=== PATIENT | male | born 1945 | race Caucasian/White ===

== ENCOUNTER → 2018-09-30 | Outpatient (CLI) | payer OTHER | END | disposition home or self-care (01) | LOC: SHCH 12:58 | PROVIDERS: ATTEND Internal Medicine Cardiovascular Disease | DX: I87.2 Venous insufficiency (chronic) (peripheral) (principal); I73.9 Peripheral vascular disease, unspecified; Z72.89 Other problems related to lifestyle | CPT/HCPCS: 93925; 93970 ==

== ENCOUNTER → 2018-12-04 | Outpatient (CLI) | payer OTHER | END | disposition home or self-care (01) | LOC: SHCH 08:22 | PROVIDERS: ATTEND Internal Medicine Cardiovascular Disease | DX: I73.9 Peripheral vascular disease, unspecified (principal) | CPT/HCPCS: 93978 ==

== ENCOUNTER 2018-12-15 07:06 | Day surgery (SDC) | payer OTHER ==
[2018-12-12 11:45] VITALS: BP 179/75
[2018-12-12 11:52] LABS: APPEARANCE,URINE Clear (CLEAR); BILIRUBIN,URINE Negative (NEGATIVE); COLOR,URINE Yellow (YELLOW); GLUCOSE, URINE (UA) Negative (NEGATIVE); KETONES,URINE Negative (NEGATIVE); LEUKOCYTE ESTERASE ,URINE Negative (NEGATIVE); NITRATE,URINE Negative (NEGATIVE); OCCULT BLOOD,URINE Negative (NEGATIVE); PROTEIN,URINE Trace (NEGATIVE); UROBILINOGEN,URINE 0.2 mg/dL (0.2-1.0)
[2018-12-12 11:57] LABS: BASOPHILS % (AUTO) 0.5 % (0.0-5.0); EOSINOPHILS % (AUTO) 0.9 % (0.0-8.0); HEMATOCRIT 41.2 % (42-54); LYMPHOCYTES % (AUTO) 20.8 % (21.0-51.0); MEAN CORPUSCULAR HEMOGLOBIN 31.7 pg (27.0-33.0); MEAN CORPUSCULAR HGB CONC 32.7 g/dL (32.0-36.0); MEAN CORPUSCULAR VOLUME 97.1 fL (79-99); MONOCYTES % (AUTO) 6.9 % (3.0-13.0); NEUTROPHILS % (AUTO) 70.9 % (40.0-77.0); NUCLEATED RED BLOOD CELLS 0.1 % (0.0-0.19); PLATELET COUNT (AUTO) 148 K/uL (130-400); RED BLOOD CELL COUNT(AUTO) 4.24 MIL/uL (4.50-6.20); RED CELL DISTRIBUTION WIDTH 14.1 % (11.0-15.5); WHITE BLOOD COUNT (AUTO) 6.7 K/uL (4.8-10.8)
[2018-12-12 12:04] LABS: CREATININE 0.9 mg/dL (0.5-1.5); POTASSIUM 4.2 mmol/L (3.5-5.1)
[2018-12-12 12:05] LABS: BACTERIA,URINE Rare /HPF (None Seen); RBC,URINE 0-1 /HPF (0-1); WBC,URINE None Seen /HPF (0-1)
[2018-12-12 12:06] LABS: INR 1.92 (0.85-1.15); PARTIAL THROMBOPLASTIN TIME 33.5 SEC (26.3-35.5); PROTHROMBIN TIME 19.9 SEC (9.6-11.6)
[2018-12-12 12:06] LABS: SQUAMOUS EPITHELIAL CELL,UR 0-2 /HPF (0-2)
--- NOTE | 2018-12-12 16:48 | NUR ---
ABNORMAL LABS REPORTED ABNORMAL LABS TO Candice CASTREJON. ORDERS TO REDRAW PT/INR .
[~2018-12-15] VITALS: Ht 180.3 cm; Wt 82.4 kg
[2018-12-15] VITALS (11 sets, daily range): BP systolic 110–165; BP diastolic 46–93
[~2018-12-15 07:06] MED LIST: AMLO5TAB9 PO; ATOR-2 PO; FURO40TA5 PO; IRON PO; LISI40TA4 PO; METF-444 PO; METO50TA18 PO
[2018-12-15 08:18] LABS: INR 1.17 (0.85-1.15); PROTHROMBIN TIME 12.2 SEC (9.6-11.6)
--- NOTE | 2018-12-15 08:45 | NUR ---
REPORTED PT/INR RE-DRAWN LABS THIS MORNING TO Candice MORTENSEN, NO NEW ORDERS RECEIVED, CONTINUE WITH PLANNED PROCEDURE.
[2018-12-15] MEDS ORDERED: SODIUM CHLORIDE 0.9% 1000ML 1,000 ML IV ONE (09:28)
[2018-12-15] MEDS ORDERED: LIDOCAINE HCL-MPF 2% 5ML VIAL ONE (09:49)
[2018-12-15] MEDS ORDERED: HEPARIN SODIUM 1000UNIT/ML 10ML VIAL ONE (09:49)
[2018-12-15] MEDS ORDERED: NITROGLYCERIN 5 MG/ML 10 ML VIAL IV ONE (09:50)
[2018-12-15] MEDS ORDERED: IODIXANOL 320 MG/ML 100 ML VIAL ONE (09:50)
[2018-12-15] MEDS ORDERED: FENTANYL CITRATE PF 50 MCG/1 ML 2ML VIAL ONE (10:23)
[2018-12-15] MEDS ORDERED: MIDAZOLAM HCL 1 MG/ML 2ML VIAL ONE (10:23)
[2018-12-15] MEDS ORDERED: SODIUM CHLORIDE 0.9% 1000ML 1,000 ML IV SCH (10:55)
[2018-12-15] MEDS ORDERED: GLUCAGON 1MG KIT 1 MG ML IM PRN (11:00)
[2018-12-15] MEDS ORDERED: METOPROLOL TARTRATE 1 MG/ML 5ML VIAL IV PRN (11:00)
[2018-12-15] MEDS ORDERED: NITROGLYCERIN 0.4 MG SL TAB SL PRN (11:00)
[2018-12-15] MEDS ORDERED: DEXTROSE 50%-WATER 50 ML DISP.SYRIN IV PRN (11:00)
[2018-12-15] MEDS ORDERED: SODIUM CHLORIDE 0.9% 500ML 500 ML IV SCH (11:01)
[2018-12-15] MEDS ORDERED: INSULIN HUMULIN R 100 UNIT/ML 3ML SQ SCH (11:30)
--- NOTE | 2018-12-15 15:15 | NUR ---
REPORT/RECEIVE REPORT RECEIVED FROM LEDY WEBB RN. PT RECEIVED SEMI SITTING IN BED. PT NOT IN ANY APPARENT DISTRESS. DENIES PAIN, PAIN TO CATH OR CHEST PAIN. CATH SITE TO LEFT GROIN SOFT, DRESSING DRY AND INTACT, NO OOZING NO HEMATOMA NOTED. PT OFF BEDREST. WILL CONTINUE TO MONITOR PT. CALL SULLIVAN WITHIN REACH. FRIEND TABATHA AT BEDSIDE
--- NOTE | 2018-12-15 17:05 | NUR ---
DISCHARGE PT DISCHARGED VIA WHEELCHAIR WITH FRIEND TABATHA. PT STABLE. NOT IN ANY APPARENT DISTRESS. NO COMPLAINTS MADE. CATH SITE TO LEFT GROIN SOFT, DRESSING REMAINS DRY AND INTACT. DISCHARGE INSTRUCTIONS GIVEN TO PT, ALSO DEMONSTRATED TO PT ON HOW TO MONITOR SITE FOR BLEEDING/HEMATOMA. ALSO INSTRUCTED PT TO RESUME COUMADIN TODAY AND TAKE WHEN HE GETS HOME. PT VERBALIZED UNDERSTANDING. PT STATES HER FRIEND VEDA SHEARER WILL BE WITH HIM AT HOME. PT VOIDED PRIOR TO DISCHARGE.
== END 2018-12-15 17:05 | disposition home or self-care (01) ==
LOC: DAH 07:06
PROVIDERS: ATTEND Internal Medicine Cardiovascular Disease
DX: I71.4 Abdominal aortic aneurysm, without rupture (principal); I70.218 Atherosclerosis of native arteries of extremities with intermittent claudication, other extremity; I70.211 Atherosclerosis of native arteries of extremities with intermittent claudication, right leg; Z79.899 Other long term (current) drug therapy; Z79.84 Long term (current) use of oral hypoglycemic drugs; Z79.01 Long term (current) use of anticoagulants; I10 Essential (primary) hypertension; E11.9 Type 2 diabetes mellitus without complications; Z98.49 Cataract extraction status, unspecified eye; I48.2 Chronic atrial fibrillation; E78.49 Other hyperlipidemia
CPT/HCPCS: 36200; 36415 ×2; 71045; 75625; 75716; 80048; 81001; 82948 ×2; 85025; 85610 ×2; 85730; 93005; A4606; C1769; C1894 ×2; J1644; J2250; J3010; J3490 ×2; J7030; Q9967; 99156; 99157

== ENCOUNTER 2018-12-22 07:49 | Day surgery (SDC) | payer OTHER ==
[2018-12-15 14:57] VITALS: BP 110/61
[2018-12-22] VITALS (9 sets, daily range): BP systolic 113–155; BP diastolic 62–92
[~2018-12-22] VITALS: Ht 177.8 cm; Wt 81.7 kg
[2018-12-22 08:57] LABS: BASOPHILS % (AUTO) 0.6 % (0.0-5.0); EOSINOPHILS % (AUTO) 1.7 % (0.0-8.0); HEMATOCRIT 40.4 % (42-54); LYMPHOCYTES % (AUTO) 19.8 % (21.0-51.0); MEAN CORPUSCULAR HEMOGLOBIN 32.4 pg (27.0-33.0); MEAN CORPUSCULAR HGB CONC 33.1 g/dL (32.0-36.0); MEAN CORPUSCULAR VOLUME 97.8 fL (79-99); NEUTROPHILS % (AUTO) 70.9 % (40.0-77.0); PLATELET COUNT (AUTO) 165 K/uL (130-400); RED BLOOD CELL COUNT(AUTO) 4.13 MIL/uL (4.50-6.20); RED CELL DISTRIBUTION WIDTH 13.8 % (11.0-15.5); WHITE BLOOD COUNT (AUTO) 6.2 K/uL (4.8-10.8)
[2018-12-22 09:01] LABS: APPEARANCE,URINE Clear (CLEAR); BILIRUBIN,URINE Negative (NEGATIVE); COLOR,URINE Yellow (YELLOW); GLUCOSE, URINE (UA) Negative (NEGATIVE); KETONES,URINE Negative (NEGATIVE); LEUKOCYTE ESTERASE ,URINE Negative (NEGATIVE); NITRATE,URINE Negative (NEGATIVE); OCCULT BLOOD,URINE Negative (NEGATIVE); PROTEIN,URINE Negative (NEGATIVE); UROBILINOGEN,URINE 0.2 mg/dL (0.2-1.0)
[2018-12-22 09:06] LABS: POTASSIUM 4.1 mmol/L (3.5-5.1)
[2018-12-22 09:08] LABS: INR 1.36 (0.85-1.15); PROTHROMBIN TIME 14.2 SEC (9.6-11.6)
[2018-12-22] MEDS ORDERED: SODIUM CHLORIDE 0.9% 1000ML 1,000 ML IV ONE (09:34)
--- NOTE | 2018-12-22 09:43 | NUR ---
ASSESSMENT PT HERE FOR PROCEDURE. DENIES ANY DISCOMFORT. ECCHYMOSIS NOTIFIED TO LEFT GROIN SITE FROM LAST VISIT. SMALL SKIN TEAR NOTED TO THIRD MIDDLE FINGER ON RIGHT HAND. PT STATES WENT FISHING YESTERDAY.
[2018-12-22] MEDS ORDERED: LIDOCAINE HCL-MPF 2% 5ML VIAL ONE (10:00)
[2018-12-22] MEDS ORDERED: HEPARIN SODIUM 1000UNIT/ML 10ML VIAL ONE (10:00)
[2018-12-22] MEDS ORDERED: IODIXANOL 320 MG/ML 100 ML VIAL ONE ×2 (10:01→12:25)
--- NOTE | 2018-12-22 10:09 | NUR ---
PROCEDURE PT TAKEN TO PROCEDURE VIA STRETCHER BY Cedrick BARKER RN.
[2018-12-22] MEDS ORDERED: FENTANYL CITRATE PF 50 MCG/1 ML 2ML VIAL ONE (10:20)
[2018-12-22] MEDS ORDERED: MIDAZOLAM HCL 1 MG/ML 2ML VIAL ONE (10:20)
[2018-12-22] MEDS ORDERED: NITROGLYCERIN 5 MG/ML 10 ML VIAL IV ONE (10:24)
[2018-12-22] MEDS ORDERED: PROTAMINE SULFATE 10 MG/ML 25ML VIAL IV ONE (12:42)
[2018-12-22] MEDS ORDERED: CLOPIDOGREL BISULFATE 300 MG TAB ONE (12:45)
[2018-12-22] MEDS ORDERED: ASPIRIN 81MG TAB.CHEW ONE (12:45)
[2018-12-22] MEDS ORDERED: SODIUM CHLORIDE 0.9% 1000ML 1,000 ML IV SCH (12:50)
[2018-12-22] MEDS ORDERED: LABETALOL 20 MG/4 ML DISP.SYRIN IV ONE (12:51)
[2018-12-22] MEDS ORDERED: GLUCAGON 1MG KIT 1 MG ML IM PRN (13:00)
[2018-12-22] MEDS ORDERED: NITROGLYCERIN 0.4 MG SL TAB SL PRN (13:00)
[2018-12-22] MEDS ORDERED: METOPROLOL TARTRATE 1 MG/ML 5ML VIAL IV PRN (13:00)
[2018-12-22] MEDS ORDERED: DEXTROSE 50%-WATER 50 ML DISP.SYRIN IV PRN (13:00)
[2018-12-22] MEDS ORDERED: LABETALOL HCL 5 MG/ML 20ML VIAL IV ONE (13:01)
--- NOTE | 2018-12-22 13:40 | NUR ---
DRESSING RIGHT ARM PRESSURE DRESSING IN PLACE WITH IMMOBLIZER WRAP WITH KERLIX
--- NOTE | 2018-12-22 13:40 | NUR ---
PROCEDURE RECEIVED PT BACK FROM ALL AROUND GEAR MACHINE OPERATOR , S/P RIGHT COMMON/EXTERNAL ILIAC STENT PLACEMENT VIA BRACHIAL APPROACH, PRESSURE DRESSING NOTED TO RIGHT ARM. RIGHT ARM NOTED COLD TO TOUCH, PURPLE IN COLOR, UNABLE TO PALPATE RADIAL PULSE, ALL AROUND GEAR MACHINE OPERATOR NURSES KAMERON RN AND CHANELLE RN REMOVED PRESSURE DRESSING TO LOOSEN UP A BIT, AFTER REMOVAL OF PRESSURE DRESSING AND REAPPLIED LIGHTLY , RADIAL PULSE PALPABLE VIA DOPPLER ONLY. RIGHT ARM WRAP WITH WARM BLANKET. VS STABLE ON ARRIVAL. PT DENIED ANY PAIN OR DISCOMFORTS. RADIAL PULSE PALPABLE VIA DOPPLER PATIENT ABLE TO WIGGLE FINGERS AND DENIED ANY PAIN , NUMBNESS TO RIGHT ARM. WILL CONTINUE TO MONITOR.
--- NOTE | 2018-12-22 13:40 | NUR ---
NEW PT KAMERON MARTINI WILL INFORMED DR. MCMAHON OF PATIENT RADIAL PULSE CHANGE. RIGHT ARTERY PULSE VIA DOPPLER ONLY ON ARRIVAL
--- NOTE | 2018-12-22 15:34 | NUR ---
FOLLOW UP SPOKE TO KAMERON MARTINI FROM [facility]. STATED SHE SPOKE TO DR. MCMAHON "INFORMED HIM ABOUT PATIENT RADIAL PULSE ", NO FURTHER ORDERS GIVEN. PT STABLE AT THIS TIME. REPORT GIVEN TO SARA BARKER RN HE WILL RESUME CARE OF PATIENT.
--- NOTE | 2018-12-22 16:15 | NUR ---
DR. MCMAHON UPDATED ON PT CONDITION, RIGHT RADIAL PULSE PRESENT WITH DOPPLER ONLY, PT HAS NO OTHER SYMPTOMS AT THIS TIME, NO NEW ORDERS RECEIVED.
[2018-12-22] MEDS ORDERED: INSULIN HUMULIN R 100 UNIT/ML 3ML SQ SCH (16:30)
[2018-12-23] MEDS ORDERED: CLOPIDOGREL BISULFATE 75 MG TAB PO SCH (09:00)
== END 2018-12-22 17:25 | disposition home or self-care (01) ==
LOC: DAH 07:49
PROVIDERS: ATTEND Internal Medicine Cardiovascular Disease
DX: I70.218 Atherosclerosis of native arteries of extremities with intermittent claudication, other extremity (principal); I70.211 Atherosclerosis of native arteries of extremities with intermittent claudication, right leg; Z79.899 Other long term (current) drug therapy; Z82.49 Family history of ischemic heart disease and other diseases of the circulatory system; Z98.49 Cataract extraction status, unspecified eye; I10 Essential (primary) hypertension; E11.9 Type 2 diabetes mellitus without complications; I48.91 Unspecified atrial fibrillation; Z79.01 Long term (current) use of anticoagulants; I48.2 Chronic atrial fibrillation; E78.49 Other hyperlipidemia
CPT/HCPCS: 36415; 37221; 80048; 81003; 82948 ×2; 85025; 85347 ×2; 85610; 85730; C1725 ×2; C1769 ×3; C1874; C1887; C1893; C1894 ×2; J1644 ×3; J2250; J2720; J3010; J3490 ×3; J7030; Q9967 ×2; 99156; 99157

== ENCOUNTER → 2019-03-16 | Outpatient (CLI) | payer OTHER | END | disposition home or self-care (01) | LOC: SHCH 07:51 | PROVIDERS: ATTEND Internal Medicine Cardiovascular Disease | DX: I73.9 Peripheral vascular disease, unspecified (principal) | CPT/HCPCS: 93925; 93978 ==

== ENCOUNTER → 2019-09-28 | Outpatient (CLI) | payer OTHER | END | disposition home or self-care (01) | LOC: SHCH 09:57 | PROVIDERS: ATTEND Internal Medicine Cardiovascular Disease | DX: I73.9 Peripheral vascular disease, unspecified (principal) | CPT/HCPCS: 93978 ==

== ENCOUNTER → 2019-10-26 | Outpatient (CLI) | payer OTHER ==
--- NOTE | 2019-10-20 13:57 | NUR ---
APPOINTMENT WAS CX BY PT AND RESCHEDULED FOR 10/26/19
[~2019-10-26] VITALS: Ht 182.9 cm; Wt 86.6 kg
[~2019-10-26] MED LIST changes: +REGADENOSON 0.4 MG/5 ML PF SYG IVP ONE; +REGADENOSON 0.4 MG/5 ML PF SYG IVP SCH
== END | disposition home or self-care (01) ==
LOC: SHCH 10-20 09:25
PROVIDERS: ATTEND Internal Medicine Cardiovascular Disease
DX: I20.0 Unstable angina (principal)
CPT/HCPCS: 78452; 93017; 96374; A9500 ×2; J2785

== ENCOUNTER 2019-11-06 06:16 | Day surgery (SDC) | payer OTHER ==
[2019-11-04 14:18] VITALS: BP 143/79
[2019-11-04 14:25] LABS: BASOPHILS % (AUTO) 0.5 % (0.0-5.0); HEMATOCRIT 38.2 % (42-54); LYMPHOCYTES % (AUTO) 18.5 % (21.0-51.0); MEAN CORPUSCULAR HEMOGLOBIN 33.1 pg (27.0-33.0); MEAN CORPUSCULAR HGB CONC 32.7 g/dL (32.0-36.0); MEAN CORPUSCULAR VOLUME 101.1 fL (79-99); MONOCYTES % (AUTO) 10.6 % (3.0-13.0); NEUTROPHILS % (AUTO) 68.9 % (40.0-77.0); PLATELET COUNT (AUTO) 197 K/uL (130-400); RED BLOOD CELL COUNT(AUTO) 3.78 MIL/uL (4.50-6.20); RED CELL DISTRIBUTION WIDTH 13.5 % (11.0-15.5); WHITE BLOOD COUNT (AUTO) 6.2 K/uL (4.8-10.8)
[2019-11-04 14:28] LABS: APPEARANCE,URINE Clear (CLEAR); BILIRUBIN,URINE Negative (NEGATIVE); COLOR,URINE Yellow (YELLOW); GLUCOSE, URINE (UA) Negative (NEGATIVE); KETONES,URINE Negative (NEGATIVE); LEUKOCYTE ESTERASE ,URINE Negative (NEGATIVE); NITRATE,URINE Negative (NEGATIVE); OCCULT BLOOD,URINE Negative (NEGATIVE); PH,URINE 5.5 (5.0-8.0); PROTEIN,URINE Trace mg/dL (NEGATIVE)
[2019-11-04 14:36] LABS: CREATININE 1.1 mg/dL (0.5-1.5); POTASSIUM 4.8 mmol/L (3.5-5.1)
[2019-11-04 14:36] LABS: BACTERIA,URINE Rare /HPF (None Seen); RBC,URINE 0-1 /HPF (0-1); SQUAMOUS EPITHELIAL CELL,UR Rare /HPF (0-2); WBC,URINE 0-1 /HPF (0-1)
[2019-11-04 15:02] LABS: PARTIAL THROMBOPLASTIN TIME 41.6 SEC (26.3-35.5)
[2019-11-04 15:04] LABS: INR 4.45 (0.85-1.15); PROTHROMBIN TIME 44.1 SEC (9.6-11.6)
--- NOTE | 2019-11-04 15:10 | NUR ---
LABS PT OF 44.5 AND INR AND 4.49. CALLED AND INFORMED DR. MCMAHON OF ABNORMAL LAB. ORDERS RECEIVED TO HAVE PT STOP TAKING COUMADIN TODAY AND TOMORROW AND WE WILL RECHECK HIS PT/PTT ON SATURDAY DOS, INSTRUCTED PT. VERBALIZED UNDERSTANDING.
[~2019-11-06] VITALS: Ht 180.3 cm; Wt 84.5 kg
[2019-11-06] VITALS (11 sets, daily range): BP systolic 111–136; BP diastolic 55–64
[~2019-11-06 06:16] MED LIST changes: -AMLO5TAB9 PO; +ASPI-555 PO; +METO100T14 PO; -METO50TA18 PO; -REGADENOSON 0.4 MG/5 ML PF SYG IVP ONE; -REGADENOSON 0.4 MG/5 ML PF SYG IVP SCH; +SODIUM CHLORIDE 0.9% 500ML 500 ML IV SCH
[2019-11-06] MEDS ORDERED: SODIUM CHLORIDE 0.9% 1000ML 1,000 ML IV ONE (06:20)
[2019-11-06 06:46] LABS: INR 1.83 (0.85-1.15); PARTIAL THROMBOPLASTIN TIME 31.5 SEC (26.3-35.5); PROTHROMBIN TIME 18.8 SEC (9.6-11.6)
[2019-11-06] MEDS ORDERED: WARF3TAB59 PO ×2 (07:01)
[2019-11-06] MEDS ORDERED: NITROGLYCERIN 5 MG/ML 10 ML VIAL IV ONE (07:43)
[2019-11-06] MEDS ORDERED: HEPARIN SODIUM 1000UNIT/ML 10ML VIAL ONE (07:43)
[2019-11-06] MEDS ORDERED: LIDOCAINE HCL 2% 20ML ONE (07:44)
[2019-11-06] MEDS ORDERED: IODIXANOL 320 MG/ML 100 ML VIAL ONE (07:44)
--- NOTE | 2019-11-06 07:45 | NUR ---
geoscience laboratory technician patient taken to geoscience laboratory technician for scheduled procedure.
[2019-11-06] MEDS ORDERED: SODIUM CHLORIDE 0.9% 1000ML 1,000 ML IV SCH (08:51)
[2019-11-06] MEDS ORDERED: HYDRALAZINE HCL 20 MG/ML VIAL ONE (08:56)
[2019-11-06] MEDS ORDERED: ACETAMINOPHEN-CODEINE 300/30MG TAB PO PRN (09:00)
[2019-11-06] MEDS ORDERED: METOPROLOL TARTRATE 1 MG/ML 5ML VIAL IV PRN (09:00)
[2019-11-06] MEDS ORDERED: NITROGLYCERIN 0.4 MG SL TAB SL PRN (09:00)
[2019-11-06] MEDS ORDERED: DEXTROSE 50%-WATER 50 ML DISP.SYRIN IV PRN (09:00)
[2019-11-06] MEDS ORDERED: GLUCAGON 1MG KIT 1 MG ML IM PRN (09:00)
[2019-11-06] MEDS ORDERED: HYDRALAZINE HCL 20 MG/ML VIAL IV PRN (09:00)
--- NOTE | 2019-11-06 09:25 | NUR ---
POST RECEIVED PT FROM PAID INTERNSHIP S/P PERIPHERAL / ABD ANGIOGRAM VIA LEFT FEMORAL ARTERY- DSTAT DRESSING DRY AND INTACT, SEE POST CATH ASSESSMENT. VS STABLE ON ARRIVAL. PLAN OF CARE DISCUSS WITH PATIENT. NO FAMILY AT BEDSIDE. INSTRUCTED PATIENT TO KEEP BEDREST FOR 3 HRS. PT VERBALIZED UNDERSTANDING. CALL LIGHT WITHIN REACH
--- NOTE | 2019-11-06 14:00 | NUR ---
REPORT REPORT GIVEN TO Marco DUENAS RN TO RESUME CARE . PATIENT SITTING UP IN CHAIR, NO DISTRESS NOTED. LEFT GROIN DRESSING DRY AND INTACT NO BLEEDING OR HEMATOMA TO SITE
--- NOTE | 2019-11-06 15:35 | NUR ---
DISCHARGE PATIENT DISCHARGED FROM FACILITY VIA WHEELCHAIR. PATIENT ASSISTED INTO PRIVATE VEHICLE DRIVEN BY BROTHER. INSTRUCTIONS GIVEN TO PATIENT'S BROTHER AND FOLLOW UP APPOINTMENTS PROVIDED. ALL QUESTIONS/CONCERNS ADDRESSED.
== END 2019-11-06 15:35 | disposition home or self-care (01) ==
LOC: DAH 06:16
PROVIDERS: ATTEND Internal Medicine Cardiovascular Disease
DX: I70.211 Atherosclerosis of native arteries of extremities with intermittent claudication, right leg (principal); I10 Essential (primary) hypertension; E11.9 Type 2 diabetes mellitus without complications; I48.91 Unspecified atrial fibrillation; E78.5 Hyperlipidemia, unspecified; F41.9 Anxiety disorder, unspecified; Z79.84 Long term (current) use of oral hypoglycemic drugs; Z79.899 Other long term (current) drug therapy; Z79.01 Long term (current) use of anticoagulants; Z87.891 Personal history of nicotine dependence; Z72.89 Other problems related to lifestyle; Z87.01 Personal history of pneumonia (recurrent); Z82.49 Family history of ischemic heart disease and other diseases of the circulatory system; Z79.82 Long term (current) use of aspirin; Z98.49 Cataract extraction status, unspecified eye
CPT/HCPCS: 36246; 36415 ×2; 71045; 75630; 80048; 81001; 82948 ×2; 85025; 85610 ×2; 85730 ×2; 93005; A4215; A4216; A4221; A4222; A4223 ×3; A4606; A4663; C1760; C1769; C1894 ×2; J0360; J1644; J3490 ×2; J7030; Q9967

== ENCOUNTER → 2019-12-28 | Outpatient (CLI) | payer OTHER ==
[~2019-12-28] VITALS: Ht 182.9 cm; Wt 82.6 kg
[~2019-12-28] MED LIST changes: +AMOX500C2 PO; +CEFUROXIME SODIUM 1.5 GM VIAL IVP ONE; -SODIUM CHLORIDE 0.9% 500ML 500 ML IV SCH; +WARF3TAB59 PO
[2019-12-28 12:51] LABS: BASOPHILS % (AUTO) 0.3 % (0.0-5.0); EOSINOPHILS % (AUTO) 0.4 % (0.0-8.0); HEMATOCRIT 40.1 % (42-54); LYMPHOCYTES % (AUTO) 17.4 % (21.0-51.0); MEAN CORPUSCULAR HEMOGLOBIN 32.3 pg (27.0-33.0); MEAN CORPUSCULAR HGB CONC 32.9 g/dL (32.0-36.0); MONOCYTES % (AUTO) 8.2 % (3.0-13.0); NEUTROPHILS % (AUTO) 72.1 % (40.0-77.0); PLATELET COUNT (AUTO) 234 K/uL (130-400); RED BLOOD CELL COUNT(AUTO) 4.09 MIL/uL (4.50-6.20); RED CELL DISTRIBUTION WIDTH 12.7 % (11.0-15.5); WHITE BLOOD COUNT (AUTO) 8.9 K/uL (4.8-10.8)
[2019-12-28 13:07] LABS: PARTIAL THROMBOPLASTIN TIME 39.3 SEC (26.3-35.5)
[2019-12-28 13:10] LABS: ALBUMIN 3.4 g/dL (3.5-5.0); BILIRUBIN,TOTAL 1.3 mg/dL (0.2-1.0); CREATININE 0.9 mg/dL (0.5-1.5); POTASSIUM 4.7 mmol/L (3.5-5.1); TOTAL PROTEIN, SERUM 6.5 g/dL (6.0-8.3)
[2019-12-28 13:11] LABS: HEMOGLOBIN A1C 6.7 % (4.0-6.0); INR 3.78 (0.85-1.15); PROTHROMBIN TIME 37.7 SEC (9.6-11.6)
[2019-12-28 14:18] VITALS: BP 139/68
--- NOTE | 2019-12-28 15:15 | NUR ---
ABNORMAL INR REPORTED TO PAMELLA. PT WILL NEED TO BE RESCHEDULED. PAMELLA STATES OFFICE WILL CALL PT.
--- NOTE | 2019-12-28 15:36 | NUR ---
CALLED OFFICE TO SEE IF OFFICE HAD FOLLOWED UP WITH PT, SPOKE TO HUMA IN OFFICE. PER HUMA SHE IS FOLLOWING UP WITH PAMELLA, THEN WILL CALL US BACK AND PT.
== END | disposition home or self-care (01) ==
LOC: DAH 12-25 10:00 → EDSTATUS 12-29 12:00
PROVIDERS: ATTEND Thoracic Surgery (Cardiothoracic Vascular Surgery)
DX: Z01.818 Encounter for other preprocedural examination (principal); J98.11 Atelectasis; I48.91 Unspecified atrial fibrillation; I70.0 Atherosclerosis of aorta
CPT/HCPCS: 36415; 71045; 80053; 83036; 85025; 85610; 85730; 86850; 86900; 86901; 86922; 93005; A6260

== ENCOUNTER 2020-01-11 11:00 | Inpatient (IN) | payer OTHER ==
[~2020-01-11] VITALS: Ht 180.3 cm; Wt 85.5 kg
[~2020-01-11 11:00] MED LIST changes: -AMOX500C2 PO; -CEFUROXIME SODIUM 1.5 GM VIAL IVP ONE
[2020-01-11 12:33] LABS: BASOPHILS % (AUTO) 0.3 % (0.0-5.0); EOSINOPHILS % (AUTO) 0.7 % (0.0-8.0); HEMATOCRIT 39.8 % (42-54); LYMPHOCYTES % (AUTO) 20.1 % (21.0-51.0); MEAN CORPUSCULAR HEMOGLOBIN 31.9 pg (27.0-33.0); MEAN CORPUSCULAR HGB CONC 32.4 g/dL (32.0-36.0); MEAN CORPUSCULAR VOLUME 98.5 fL (79-99); MONOCYTES % (AUTO) 8.5 % (3.0-13.0); NEUTROPHILS % (AUTO) 69.6 % (40.0-77.0); PLATELET COUNT (AUTO) 158 K/uL (130-400); RED BLOOD CELL COUNT(AUTO) 4.04 MIL/uL (4.50-6.20); RED CELL DISTRIBUTION WIDTH 13.4 % (11.0-15.5); WHITE BLOOD COUNT (AUTO) 7.2 K/uL (4.8-10.8)
[2020-01-11 12:39] VITALS: BP 167/80
[2020-01-11 12:49] LABS: HEMOGLOBIN A1C 6.6 % (4.0-6.0); INR 1.82 (0.85-1.15); PARTIAL THROMBOPLASTIN TIME 32.2 SEC (26.3-35.5); PROTHROMBIN TIME 18.7 SEC (9.6-11.6)
[2020-01-11] MEDS ORDERED: AMOX500C2 PO (12:59)
[2020-01-11 13:44] LABS: ALBUMIN 3.7 g/dL (3.5-5.0); BILIRUBIN,TOTAL 1.5 mg/dL (0.2-1.0); POTASSIUM 4.7 mmol/L (3.5-5.1); TOTAL PROTEIN, SERUM 7.1 g/dL (6.0-8.3)
[2020-01-11] MEDS ORDERED: CEFUROXIME SODIUM 1.5 GM VIAL IVP SCH (14:00)
--- NOTE | 2020-01-11 15:13 | NUR ---
DR. VAZQUEZ NURSE PAMELLA RN, IS AWARE OF ABNORMAL INR, PT AND CBC ABNORMAL. NO NEW ORDERS AT THIS TIME.
[2020-01-12] VITALS (17 sets, daily range): BP systolic 112–158; BP diastolic 60–98
[2020-01-12] MEDS ORDERED: SODIUM CHLORIDE 0.9% 1000ML 1,000 ML IV ONE (08:37)
--- NOTE | 2020-01-12 08:58 | NUR ---
SKIN MULTIPLE BRUSING NOTED TO INES ARMS, SKIN TEAR NOTED TO RIGHT MIDDLE FINGER. BOTH FEET APPEARED REDISH IN COLOR , BLACK SPOT NOTED TO 4TH TOE RIGHT FOOT BOTTOM OF TOE Addendum: 01/12/20 at 0900 by CHEYENNE JOHNSON RN Amended: Links added.
[2020-01-12] MEDS ORDERED: NEOMY SULF/POLYMYXIN B SULFATE 1 ML AMPUL IR ONE (13:46)
[2020-01-12] MEDS ORDERED: DEXAMETHASONE SOD PHOSPHATE 10MG/ML 1ML VIAL ONE (13:48)
[2020-01-12] MEDS ORDERED: ONDANSETRON HCL 4 MG/2 ML VIAL ONE (13:48)
[2020-01-12] MEDS ORDERED: MIDAZOLAM HCL 1 MG/ML 2ML VIAL ONE (13:48)
[2020-01-12] MEDS ORDERED: LIDOCAINE PF 2% 5ML ABBOJECT ONE (13:48)
[2020-01-12] MEDS ORDERED: PROPOFOL 10 MG/ML 20ML VIAL IV ONE (13:48)
[2020-01-12] MEDS ORDERED: ROCURONIUM 10MG/1ML SYR 10 MG/ML ML ONE (13:49)
[2020-01-12] MEDS ORDERED: FENTANYL CITRATE PF 50 MCG/1 ML 2ML VIAL ONE ×2 (13:49→15:19)
[2020-01-12] MEDS ORDERED: CEFAZOLIN SODIUM 1 GM VIAL ONE (14:04)
[2020-01-12] MEDS ORDERED: NEOSTIGMINE 5MG/5ML SYR IV ONE (16:25)
[2020-01-12] MEDS ORDERED: GLYCOPYRROLATE 1 MG/5 ML SYRINGE ONE (16:25)
[2020-01-12] MEDS: METFORMIN HCL 500 MG TABLET PO SCH (17:00)
[2020-01-12] MEDS ORDERED: ACETAMINOPHEN 325 MG TAB PO PRN (17:00)
[2020-01-12] MEDS: AMOXICILLIN 500 MG CAPSULE PO SCH (17:00)
--- NOTE | 2020-01-12 17:55 | NUR ---
RECEIVED FROM PACU VIA BED. AAOX3, RESP.'S EVEN AND UNLABORED. DENIES ANY C/O PAIN, DENIES ANY SOB. O2 AT 2L/NC. CALL LIGHT WITHIN REACH, VERBALIZED ABILITY TO USE. BED LOW, SIDE RAILS UP X3. PT. NOTED TO HAVE DUSKY FINGERS, STATES HAS EXPERIENCED THAT BEFORE AT HOME AND FINGERS COLD. LEFT WRIST AREA, SOFT, NO ECCHYMOSIS OR HEMATOMA NOTED. Addendum: 01/12/20 at 1944 by CLAU MENDOZA RN RN RIGHT LOWER EXTREMITY ELEVATED ORDERED.
[2020-01-12] MEDS: TRAMADOL HCL 50 MG TABLET PO PRN ×2 (18:22→23:57)
[2020-01-12] MEDS: METOPROLOL TARTRATE 50 MG TAB PO SCH (19:58)
[2020-01-12] MEDS: CEFAZOLIN SODIUM 1 GM VIAL IVP SCH (23:10)
[2020-01-13] MEDS: AMOXICILLIN 500 MG CAPSULE PO SCH ×3 (01:00→17:40)
[2020-01-13 03:44] VITALS: BP 118/53
[2020-01-13 03:52] LABS: HEMATOCRIT 32.6 % (42-54); MEAN CORPUSCULAR HEMOGLOBIN 32.5 pg (27.0-33.0); MEAN CORPUSCULAR HGB CONC 32.8 g/dL (32.0-36.0); MEAN CORPUSCULAR VOLUME 99.1 fL (79-99); PLATELET COUNT (AUTO) 127 K/uL (130-400); RED BLOOD CELL COUNT(AUTO) 3.29 MIL/uL (4.50-6.20); RED CELL DISTRIBUTION WIDTH 13.5 % (11.0-15.5); WHITE BLOOD COUNT (AUTO) 5.6 K/uL (4.8-10.8)
[2020-01-13 04:02] LABS: CREATININE 0.9 mg/dL (0.5-1.5); POTASSIUM 4.3 mmol/L (3.5-5.1)
[2020-01-13] MEDS: CEFAZOLIN SODIUM 1 GM VIAL IVP SCH ×2 (06:52→15:04)
[2020-01-13 07:45] VITALS: BP 144/90
[2020-01-13] MEDS: METFORMIN HCL 500 MG TABLET PO SCH ×2 (08:15→17:41)
[2020-01-13] MEDS: IRON 65 MG PO SCH (09:00)
[2020-01-13] MEDS: ASPIRIN 81 MG EC TAB PO SCH (10:13)
[2020-01-13] MEDS: METOPROLOL TARTRATE 50 MG TAB PO SCH ×2 (10:13→21:39)
[2020-01-13] MEDS: LISINOPRIL 40 MG TABLET PO SCH (10:14)
[2020-01-13] MEDS: ATORVASTATIN CALCIUM 40 MG TABLET PO SCH (10:14)
[2020-01-13] MEDS: FUROSEMIDE 40 MG TABLET PO SCH (10:14)
[2020-01-13 11:59] VITALS: BP 110/69
--- NOTE | 2020-01-13 14:21 | NUR ---
DHEERAJ PLAN VISITED WITH PATIENT. PHYSICAL THERAPY WORKING WITH PATIENT. TORO WILL CONTINUE TO FOLLOW. Addendum: 01/13/20 at 1422 by EMMA MESSINA RN CM Amended: Links added.
[2020-01-13 16:04] VITALS: BP 114/66
--- NOTE | 2020-01-13 16:14 | NUR ---
DC PLAN VISITED WITH PATIENT. PATIENT LIVES ALONE. HAS A BROTHER AND A NEIGHBOR NEXT DOOR VEDA THAT HELP HIM OUT. NO SERVICES OR DME'S. FEELS SAFE TO GO HOME. Addendum: 01/13/20 at 1616 by EMMA MESSINA RN CM Amended: Links added.
[2020-01-13] MEDS ORDERED: WARFARIN SODIUM 1 MG TAB PO SCH (17:00)
[2020-01-13 19:24] VITALS: BP 118/55
[2020-01-13] MEDS: TRAMADOL HCL 50 MG TABLET PO PRN (19:39)
[2020-01-13 23:43] VITALS: BP 155/60
[2020-01-14] MEDS: CEFAZOLIN SODIUM 1 GM VIAL IVP SCH ×2 (00:12→06:26)
[2020-01-14] MEDS: AMOXICILLIN 500 MG CAPSULE PO SCH ×2 (02:28→09:51)
[2020-01-14 03:57] VITALS: BP 131/61
[2020-01-14 04:29] LABS: INR 1.11 (0.85-1.15); PROTHROMBIN TIME 11.6 SEC (9.6-11.6)
[2020-01-14] MEDS: TRAMADOL HCL 50 MG TABLET PO PRN (06:31)
[2020-01-14 07:44] VITALS: BP 126/60
[2020-01-14] MEDS: METFORMIN HCL 500 MG TABLET PO SCH (08:53)
[2020-01-14] MEDS: IRON 65 MG PO SCH (09:00)
[2020-01-14] MEDS: FUROSEMIDE 40 MG TABLET PO SCH (09:51)
[2020-01-14] MEDS: ATORVASTATIN CALCIUM 40 MG TABLET PO SCH (09:51)
[2020-01-14] MEDS: LISINOPRIL 40 MG TABLET PO SCH (09:51)
[2020-01-14] MEDS: METOPROLOL TARTRATE 50 MG TAB PO SCH (09:51)
[2020-01-14] MEDS: ASPIRIN 81 MG EC TAB PO SCH (09:51)
[2020-01-14 11:49] VITALS: BP 115/70
[2020-01-14] MEDS ORDERED: WARFARIN SODIUM 1 MG TAB PO SCH (17:00)
== END 2020-01-14 14:50 | disposition home or self-care (01) | DRG 253 ==
LOC: EDSTATUS 11:00 → DAHIP 01-12 08:20 → 2AH 01-12 18:08
PROVIDERS: ADMIT Thoracic Surgery (Cardiothoracic Vascular Surgery); ATTEND Thoracic Surgery (Cardiothoracic Vascular Surgery)
PROC: 041K0KL Bypass Right Femoral Artery to Popliteal Artery with Nonautologous Tissue Substitute, Open Approach (ICD-10-PCS; 2020-01-12)
PROC: 04CK0ZZ Extirpation of Matter from Right Femoral Artery, Open Approach (ICD-10-PCS; principal; 2020-01-12 15:21)
DX: I73.9 Peripheral vascular disease, unspecified (principal); I48.20 Chronic atrial fibrillation, unspecified; I10 Essential (primary) hypertension; E78.00 Pure hypercholesterolemia, unspecified; E87.70 Fluid overload, unspecified; Z79.01 Long term (current) use of anticoagulants; Z79.899 Other long term (current) drug therapy; Z79.84 Long term (current) use of oral hypoglycemic drugs; Z79.82 Long term (current) use of aspirin; Z95.5 Presence of coronary angioplasty implant and graft
CPT/HCPCS: 36415; 71046; 80048; 80053; 82948; 83036; 85025; 85027; 85610; 85730; 88304; 93005; 97039; G0378; J0690; J0697; J1100; J1644; J2001; J2250; J2405; J2704; J2710; J3010; J3490; J7030; J7040

== ENCOUNTER → 2020-01-28 | Outpatient (CLI) | payer OTHER ==
[~2020-01-28] MED LIST changes: +AMOX500C2 PO
== END | disposition home or self-care (01) ==
LOC: SHCH 12:34
PROVIDERS: ATTEND Internal Medicine Cardiovascular Disease
DX: I48.21 Permanent atrial fibrillation (principal)
CPT/HCPCS: 93306

== ENCOUNTER → 2020-01-29 | Outpatient (CLI) | payer OTHER | END | disposition home or self-care (01) | LOC: SHCH 14:38 | PROVIDERS: ATTEND Internal Medicine Cardiovascular Disease | DX: I65.21 Occlusion and stenosis of right carotid artery (principal) | CPT/HCPCS: 93880 ==

== ENCOUNTER 2020-06-16 16:46 | Inpatient (IN) | payer OTHER ==
[~2020-06-16] VITALS: Ht 182.9 cm; Wt 84.4 kg
[~2020-06-16 16:46] MED LIST changes: -ASPI-555 PO; +ASPI-556 PO
[2020-06-16] MEDS ORDERED: ZOSYN 3.375GM+NS 50ML 50 ML IV ONE (18:41)
[2020-06-16] MEDS ORDERED: VANCOMYCIN 1GM+NS 250ML 250 ML IV ONE ×2 (18:41→20:04)
[2020-06-16 19:29] LABS: BASOPHILS % (AUTO) 0.5 % (0.0-5.0); EOSINOPHILS % (AUTO) 0.9 % (0.0-8.0); HEMATOCRIT 37.3 % (42-54); LYMPHOCYTES % (AUTO) 15.9 % (21.0-51.0); MEAN CORPUSCULAR HEMOGLOBIN 32.5 pg (27.0-33.0); MEAN CORPUSCULAR HGB CONC 33.5 g/dL (32.0-36.0); MEAN CORPUSCULAR VOLUME 96.9 fL (79-99); MONOCYTES % (AUTO) 6.9 % (3.0-13.0); NEUTROPHILS % (AUTO) 74.9 % (40.0-77.0); PLATELET COUNT (AUTO) 194 K/uL (130-400); RED BLOOD CELL COUNT(AUTO) 3.85 MIL/uL (4.50-6.20); RED CELL DISTRIBUTION WIDTH 13.9 % (11.0-15.5); WHITE BLOOD COUNT (AUTO) 7.9 K/uL (4.8-10.8)
[2020-06-16 20:01] LABS: PARTIAL THROMBOPLASTIN TIME 52.4 SEC (26.3-35.5)
[2020-06-16 20:06] LABS: INR > 7.00 (0.85-1.15); PROTHROMBIN TIME > 63.0 SEC (9.6-11.6)
[2020-06-16 20:34] LABS: ERYTHROCYTE SEDIMENTATION RATE 24 MM/HR (0-20)
[2020-06-16 21:05] LABS: APPEARANCE,URINE Clear (CLEAR); BILIRUBIN,URINE Negative (NEGATIVE); COLOR,URINE Yellow (YELLOW); GLUCOSE, URINE (UA) Negative (NEGATIVE); KETONES,URINE Negative (NEGATIVE); LEUKOCYTE ESTERASE ,URINE Negative (NEGATIVE); NITRATE,URINE Negative (NEGATIVE); OCCULT BLOOD,URINE Negative (NEGATIVE); PROTEIN,URINE Trace mg/dL (NEGATIVE)
[2020-06-16 21:18] LABS: CARBON DIOXIDE 29 mmol/L (21-32); CHLORIDE 100 mmol/L (101-111); CREATININE 1.1 mg/dL (0.5-1.5); GLOMERULAR FILTR. RATE CALC 69 mL/min (>60); GLUCOSE,RANDOM 162 mg/dL (70-105); SODIUM SERUM 142 mmol/L (136-145); UREA NITROGEN, BLOOD 28 mg/dL (7-18)
[2020-06-16 21:22] LABS: BACTERIA,URINE Few /HPF (None Seen); MUCUS,URINE Rare LPF (None Seen); RBC,URINE 0-1 /HPF (0-1); SQUAMOUS EPITHELIAL CELL,UR Few /HPF (0-2); WBC,URINE 0-1 /HPF (0-1)
[2020-06-16 21:29] LABS: ALANINE AMINOTRANSFERASE 23 U/L (12-78); ALBUMIN 3.2 g/dL (3.5-5.0); ASPARTATE AMINOTRANSFERASE 27 U/L (10-37); BILIRUBIN,TOTAL 0.5 mg/dL (0.2-1.0); CREATINE KINASE, TOTAL 86 U/L (21-232); MYOGLOBIN 52 ng/mL (10-92); TOTAL PROTEIN, SERUM 6.7 g/dL (6.0-8.3); TROPONIN I < 0.04 ng/mL (0.00-0.06)
[2020-06-16] MEDS ORDERED: GLUCAGON 1MG KIT 1 MG ML IM PRN (21:45)
[2020-06-16] MEDS: POTASSIUM CHLORIDE 20 MEQ ERTAB PO SCH (21:45)
[2020-06-16] MEDS ORDERED: ACETAMINOPHEN 325 MG TAB PO PRN ×2 (21:45)
[2020-06-16] MEDS ORDERED: ONDANSETRON HCL 4 MG/2 ML VIAL IV PRN (21:45)
[2020-06-16] MEDS ORDERED: DEXTROSE 50%-WATER 50 ML DISP.SYRIN IV PRN (21:45)
[2020-06-16] MEDS ORDERED: VANCOMYCIN PROTOCOL PER PHARMACY IV SCH (21:45)
[2020-06-16] MEDS ORDERED: PHYTONADIONE 10 MG/1 ML AMP IM SCH (21:45)
[2020-06-16] MEDS: ZOSYN 3.375GM+NS 50ML 50 ML IV SCH (21:45)
[2020-06-16] MEDS ORDERED: POTASSIUM CHLORIDE 20 MEQ ERTAB PO ONE (22:11)
[2020-06-16] MEDS ORDERED: PHYTONADIONE 10 MG/1 ML AMP ONE (22:11)
[2020-06-16 23:35] VITALS: BP 171/130
[2020-06-16] MEDS ORDERED: AMLO5TAB9 PO (23:59)
[2020-06-17 00:28] VITALS: BP 150/90
[2020-06-17] MEDS: KETOROLAC TROMETHAMINE 15MG/ML IV PRN ×2 (04:17→20:30)
[2020-06-17 04:28] VITALS: BP 165/88
[2020-06-17] MEDS: ZOSYN 3.375GM+NS 50ML 50 ML IV SCH ×3 (05:03→20:06)
[2020-06-17] MEDS ORDERED: KETOROLAC TROMETHAMINE 15MG/ML IM SCH ×2 (05:45→21:15)
[2020-06-17] MEDS: INSULIN HUMULIN R 100 UNIT/ML 3ML SQ SCH ×4 (06:00→21:00)
[2020-06-17 06:07] LABS: BASOPHILS % (AUTO) 0.4 % (0.0-5.0); EOSINOPHILS % (AUTO) 1.2 % (0.0-8.0); HEMATOCRIT 35.4 % (42-54); LYMPHOCYTES % (AUTO) 15.9 % (21.0-51.0); MEAN CORPUSCULAR HEMOGLOBIN 32.5 pg (27.0-33.0); MEAN CORPUSCULAR HGB CONC 33.6 g/dL (32.0-36.0); MEAN CORPUSCULAR VOLUME 96.7 fL (79-99); MONOCYTES % (AUTO) 9.9 % (3.0-13.0); NEUTROPHILS % (AUTO) 72.1 % (40.0-77.0); PLATELET COUNT (AUTO) 174 K/uL (130-400); RED BLOOD CELL COUNT(AUTO) 3.66 MIL/uL (4.50-6.20); RED CELL DISTRIBUTION WIDTH 13.8 % (11.0-15.5); WHITE BLOOD COUNT (AUTO) 7.4 K/uL (4.8-10.8)
[2020-06-17 06:11] LABS: PARTIAL THROMBOPLASTIN TIME 60.9 SEC (26.3-35.5)
[2020-06-17 06:26] LABS: ALBUMIN 2.9 g/dL (3.5-5.0); CREATININE 0.9 mg/dL (0.5-1.5); MAGNESIUM 0.8 mg/dL (1.80-2.40); POTASSIUM 3.1 mmol/L (3.5-5.1)
[2020-06-17] MEDS ORDERED: COMPOUND IV REFRIGERATED 1 EACH IVSOLN MISC PRN (06:30)
[2020-06-17 06:56] LABS: PROTHROMBIN TIME > 63.0 SEC (9.6-11.6)
[2020-06-17 06:57] LABS: INR 6.59 (0.85-1.15)
[2020-06-17 08:00] VITALS: BP 153/92
[2020-06-17] MEDS: FAMOTIDINE 20MG TAB 20 MG TAB PO SCH ×2 (09:40→20:06)
[2020-06-17] MEDS: VANCOMYCIN 1.25 GM in SODIUM CHLORIDE 0.9% 250 ML IV SCH ×2 (09:40→20:06)
--- NOTE | 2020-06-17 10:27 | NUR ---
CHART CHECK COMPLETED. Pt IS A 74 Y.O. MALE ADMITTED SECONDARY TO R MIDDLE TOE NECROSIS WITH R FOOT CELLULITIS. Pt HAS A PAST MEDICAL HISTORY SIGNIFICANT FOR DMII, HYPERTENSION, HYPERCHOLESTEROLEMIA, R LEG BYPASS STENT, LEFT LEG STENT PLACEMENT X3. Pt CURRENTLY ON REGULAR TEXTURE,THIN LIQUID DIET (HEART HEALTHY). PLEASE REQUEST FORMAL SKILLED SPEECH/SWALLOW EVALUATION IF Pt PRESENTS WITH +S/S OF ASPIRATION SUCH COUGH RESPONSE, THROAT CLEAR, OR WET VOCAL QUALITY DURING P.O. Addendum: 06/17/20 at 1031 by GILA GLORIA, SPT ST Amended: Links added.
[2020-06-17 11:00] VITALS: BP 172/96
[2020-06-17] MEDS ORDERED: POTASSIUM CHLORIDE 10% ELIXIR 20 MEQ/15 ML UDCUP PO PRN (11:00)
[2020-06-17] MEDS ORDERED: POTASSIUM CHLORIDE 20 MEQ ERTAB PO PRN (11:00)
[2020-06-17] MEDS ORDERED: LIDOCAINE HCL-MPF 1% 2ML VIAL IV PRN (11:00)
[2020-06-17] MEDS ORDERED: POTASSIUM CHLORIDE 20MEQ/100ML 100 ML IV PRN (11:00)
[2020-06-17] MEDS: MAGNESIUM 2GM PREMIX 50ML 50 ML IV PRN (11:32)
[2020-06-17 16:00] VITALS: BP 138/72
[2020-06-17] MEDS ORDERED: IOHEXOL 350 MG/ML 100ML INFUS..BTL IV ONE (17:59)
[2020-06-17 20:05] VITALS: BP 160/65
[2020-06-17] MEDS: METOPROLOL TARTRATE 50 MG TAB PO SCH (20:06)
[2020-06-17] MEDS: ATORVASTATIN CALCIUM 40 MG TABLET PO SCH (20:06)
[2020-06-17] MEDS ORDERED: KETOROLAC TROMETHAMINE 30MG/ML IM PRN (21:15)
[2020-06-17 21:42] LABS: MAGNESIUM 1.3 mg/dL (1.80-2.40); POTASSIUM 3.4 mmol/L (3.5-5.1)
[2020-06-17] MEDS: POTASSIUM CHLORIDE 20 MEQ ERTAB PO SCH (21:45)
[2020-06-18] VITALS: BP 151/79
[2020-06-18 04:00] VITALS: BP 149/87
[2020-06-18] MEDS: ZOSYN 3.375GM+NS 50ML 50 ML IV SCH ×3 (05:45→20:07)
[2020-06-18 05:57] LABS: BASOPHILS % (AUTO) 0.5 % (0.0-5.0); EOSINOPHILS % (AUTO) 1.9 % (0.0-8.0); HEMATOCRIT 34.9 % (42-54); LYMPHOCYTES % (AUTO) 14.4 % (21.0-51.0); MEAN CORPUSCULAR HGB CONC 33.5 g/dL (32.0-36.0); MEAN CORPUSCULAR VOLUME 98.3 fL (79-99); MONOCYTES % (AUTO) 9.9 % (3.0-13.0); NEUTROPHILS % (AUTO) 72.5 % (40.0-77.0); PLATELET COUNT (AUTO) 151 K/uL (130-400); RED BLOOD CELL COUNT(AUTO) 3.55 MIL/uL (4.50-6.20); RED CELL DISTRIBUTION WIDTH 13.8 % (11.0-15.5); WHITE BLOOD COUNT (AUTO) 6.3 K/uL (4.8-10.8)
[2020-06-18 06:11] LABS: INR 1.71 (0.85-1.15); PROTHROMBIN TIME 18.1 SEC (9.6-11.6)
[2020-06-18 06:33] LABS: ALBUMIN 2.7 g/dL (3.5-5.0); BILIRUBIN,TOTAL 1.1 mg/dL (0.2-1.0); POTASSIUM 3.9 mmol/L (3.5-5.1); TOTAL PROTEIN, SERUM 5.6 g/dL (6.0-8.3)
[2020-06-18] MEDS: INSULIN HUMULIN R 100 UNIT/ML 3ML SQ SCH ×3 (07:30→20:08)
[2020-06-18 07:57] VITALS: BP 138/87
--- NOTE | 2020-06-18 09:30 | NUR ---
PT/INR MELISSA DRY WALL FINISHER AWARE OF PATIENT COAGULATION DROPPED TO BELOW THERAPEUTIC LEVELS. INR FROM 6.59 TO 1.78 ANT PT FROM 63 TO 18.1 MELISSA STATED THAT CARDIOLOGY SHOULD BE THE ONES TO RE START THE COUMADIN. APARNA DRY WALL FINISHER ROUNDED WITH PATIENT. AWARE OF COAGULATION. APARNA STATED THAT SHE WILL INFORM DR HARMAN AND HE WILL MAKE A DECISION ON WHETHER TO RE-START COUMADIN OR NOT. WILL CONTINUE TO MONITOR CLOSELY.
[2020-06-18] MEDS: VANCOMYCIN 1.25 GM in SODIUM CHLORIDE 0.9% 250 ML IV SCH ×2 (09:50→21:00)
[2020-06-18] MEDS: FUROSEMIDE 40 MG TABLET PO SCH (09:50)
[2020-06-18] MEDS: FERROUS SULFATE 325 MG TABLET.DR PO SCH (09:50)
[2020-06-18] MEDS: AMLODIPINE BESYLATE 5 MG TAB PO SCH (09:50)
[2020-06-18] MEDS: FAMOTIDINE 20MG TAB 20 MG TAB PO SCH ×2 (09:50→20:06)
[2020-06-18] MEDS: METOPROLOL TARTRATE 50 MG TAB PO SCH ×2 (09:50→20:06)
[2020-06-18] MEDS: MAGNESIUM 2GM PREMIX 50ML 50 ML IV PRN (14:54)
[2020-06-18 16:22] VITALS: BP 155/61
[2020-06-18 19:41] VITALS: BP 149/78
[2020-06-18] MEDS: ATORVASTATIN CALCIUM 40 MG TABLET PO SCH (20:06)
[2020-06-18] MEDS: KETOROLAC TROMETHAMINE 30MG/ML IV PRN (20:08)
[2020-06-18] MEDS: POTASSIUM CHLORIDE 20 MEQ ERTAB PO SCH (21:45)
[2020-06-18 23:54] VITALS: BP 168/99
[2020-06-19 03:35] VITALS: BP 160/87
[2020-06-19] MEDS: ZOSYN 3.375GM+NS 50ML 50 ML IV SCH ×3 (06:05→21:20)
[2020-06-19] MEDS: INSULIN HUMULIN R 100 UNIT/ML 3ML SQ SCH ×4 (06:48→21:00)
[2020-06-19 08:28] VITALS: BP 155/98
[2020-06-19] MEDS: FAMOTIDINE 20MG TAB 20 MG TAB PO SCH ×2 (10:05→21:19)
[2020-06-19] MEDS: FERROUS SULFATE 325 MG TABLET.DR PO SCH (10:05)
[2020-06-19] MEDS: AMLODIPINE BESYLATE 5 MG TAB PO SCH (10:05)
[2020-06-19] MEDS: METOPROLOL TARTRATE 50 MG TAB PO SCH ×2 (10:06→21:19)
[2020-06-19] MEDS: FUROSEMIDE 40 MG TABLET PO SCH ×2 (10:06→17:37)
[2020-06-19] MEDS: ENOXAPARIN SODIUM 80 MG/0.8 ML SQ SCH ×2 (10:07→21:19)
[2020-06-19] MEDS: KETOROLAC TROMETHAMINE 30MG/ML IV PRN (10:26)
[2020-06-19] MEDS: VANCOMYCIN 1.25 GM in SODIUM CHLORIDE 0.9% 250 ML IV SCH ×2 (10:32→21:21)
[2020-06-19 11:28] VITALS: BP 133/81
[2020-06-19] MEDS: LISINOPRIL 40 MG TABLET PO SCH (13:05)
--- NOTE | 2020-06-19 16:00 | NUR ---
PHYSICIAN ROUNDS - DR REBECCA FERNANDEZ ROUNDED ON PATIENT AND PREFORMED DRESSING CHANGE TO RIGHT FOOT
[2020-06-19 16:23] VITALS: BP 117/66
--- NOTE | 2020-06-19 16:44 | NUR ---
INITIAL SW spoke to patient. Patient lives alone. No home services. DME: BPM. Patient is able to complete ADL's independently and drives. [place] DCP [place]. Addendum: 06/19/20 at 1646 by LEEANNA MURILLO SS Amended: Links added.
[2020-06-19 19:30] VITALS: BP 125/64
[2020-06-19] MEDS: ATORVASTATIN CALCIUM 40 MG TABLET PO SCH (21:19)
[2020-06-19] MEDS: POTASSIUM CHLORIDE 20 MEQ ERTAB PO SCH (21:45)
--- NOTE | 2020-06-19 22:00 | NUR ---
ROOM CHANGE PATIENT CONSTANTLY GETTING OOB WITHOUT ASSISTANCE. UNSTEADY GAIT NOTED. PATIENT CONTINUES WITH BILATERAL FEET PITTING EDEMA. DRESSING TO RIGHT FOOT DRY AND INTACT. REINFORCED. RESP EVEN AND UNLABORED, NO SOB NOTED. ON ROOM AIR. VITALS STABLE. AFEBRILE. PATIENT USES URINAL. FALL PRECAUTIONS IN PLACE DUE TO POOR SAFETY AWARENESS. NEW IV STARTED USING CLEAN TECHNIQUEX1 ATTEMPT. 20G TO RIGHT HAND PLACED. BED ALARM ON. SIDE RAILS UP X2. CALL LIGHT WITHIN REACH. WILL CONTINUE TO BE OBSERVED. Addendum: 06/19/20 at 2253 by VANNA BARKER RN RN Amended: Links added.
[2020-06-19 23:37] VITALS: BP 169/78
[2020-06-20 03:45] VITALS: BP 172/98
[2020-06-20] MEDS: FUROSEMIDE 40 MG TABLET PO SCH ×2 (04:31→16:13)
[2020-06-20] MEDS: ZOSYN 3.375GM+NS 50ML 50 ML IV SCH ×2 (04:31→16:12)
[2020-06-20] MEDS: INSULIN HUMULIN R 100 UNIT/ML 3ML SQ SCH ×2 (05:37→11:30)
[2020-06-20 08:00] VITALS: BP 147/88
[2020-06-20] MEDS ORDERED: ASPIRIN 81MG TAB.CHEW PO SCH (09:00)
[2020-06-20 11:04] VITALS: BP 145/72
[2020-06-20] MEDS: VANCOMYCIN 1.25 GM in SODIUM CHLORIDE 0.9% 250 ML IV SCH (13:28)
[2020-06-20] MEDS: FERROUS SULFATE 325 MG TABLET.DR PO SCH (13:29)
[2020-06-20] MEDS: AMLODIPINE BESYLATE 5 MG TAB PO SCH (13:29)
[2020-06-20] MEDS: METOPROLOL TARTRATE 50 MG TAB PO SCH (13:31)
[2020-06-20] MEDS: FAMOTIDINE 20MG TAB 20 MG TAB PO SCH (13:37)
[2020-06-20] MEDS: LISINOPRIL 40 MG TABLET PO SCH (13:44)
[2020-06-20] MEDS: ENOXAPARIN SODIUM 80 MG/0.8 ML SQ SCH (13:51)
[2020-06-20 16:00] VITALS: BP 127/59
--- NOTE | 2020-06-20 17:45 | NUR ---
174 MA INFORMED ME PT HAD REMOVED HIS IV TO RT HAND, PRESSURE APPLIED DRESSING APPLIED BY LAW. PT IRRITABLE, STATES HE DOES NOT WANT TO STAY IN HOSPITAL, DRESSED HIMSELF AT BEDSIDE. INFORMED PT IF HE WANTED TO STAY FOR HIS SURGERY, PT DOES NOT RECALL SURGERY, STATES NURSES ARE POISONING HIM. SECURITY AT BEDSIDE AT 1750, SECURITY TRIED TO TALK WITH PT AND CONVINCE HIM TO STAY, PT WALKED OUT OF ROOM ATTEMPTING TO PULL HIS IV OUT ON THE LT HAND, KIT MARTINI ASSISTED PT TO REMOVE IV AND WRAPPED WITH A DRESSING. PT STATED HE WILL NOT STAY IN HOSPITAL AND IS LEAVING AMA, STATES HE WILL DRIVE HIMSELF HOME OR WALK HOME IF NEEDED. PT WALKING DOWN GALVEZ TO ELEVATOR, SECURITY AT HIS SIDE DOWN TO ER. CALLED MELISSA Lima NP , STATED WE CANNOT HOLD PT AGAINST HIS WILL, PT CAN LEAVE AMA. CALLED NEXT OF KIN JAYDA HEREDIA, BROTHER, KIN LIVES IN [place] AND PT HAS NO OTHER FAMILY HERE IN [facility], BROTHER STATED PT MAY BE GOING THROUGH TOBACCO DIP WITHDRAWALS, STATES HE HAS HAD PREVIOUS BEHAVIOR AND DRINKS A PINT OF [place] NIGHTLY. BROTHER STATED THAT IS WHAT PT IS LIKELY GOING TO DO. BROTHER STATED HE WILL ATTEMPT TO CALL PT TO CHECK UP ON HIM AND CONVINCE HIM TO RETURN TO HOSPITAL.
== END 2020-06-20 18:00 | disposition left against medical advice (07) | DRG 314 ==
LOC: EDH 16:46 → EDHIP 21:37 → 3DH 23:39
PROVIDERS: ADMIT Internal Medicine; ATTEND Internal Medicine
DX: T82.856A Stenosis of peripheral vascular stent, initial encounter (principal); I50.23 Acute on chronic systolic (congestive) heart failure; E11.52 Type 2 diabetes mellitus with diabetic peripheral angiopathy with gangrene; L03.115 Cellulitis of right lower limb; E87.2 Acidosis; I48.21 Permanent atrial fibrillation; I96 Gangrene, not elsewhere classified; M86.8X7 Other osteomyelitis, ankle and foot; L03.116 Cellulitis of left lower limb; I13.0 Hypertensive heart and chronic kidney disease with heart failure and stage 1 through stage 4 chronic kidney disease, or unspecified chronic kidney disease; E11.621 Type 2 diabetes mellitus with foot ulcer; E78.00 Pure hypercholesterolemia, unspecified; E78.5 Hyperlipidemia, unspecified; I87.2 Venous insufficiency (chronic) (peripheral); E66.9 Obesity, unspecified; Z68.25 Body mass index [BMI] 25.0-25.9, adult; E87.6 Hypokalemia; E83.42 Hypomagnesemia; L97.519 Non-pressure chronic ulcer of other part of right foot with unspecified severity; N18.9 Chronic kidney disease, unspecified; E11.22 Type 2 diabetes mellitus with diabetic chronic kidney disease; I34.0 Nonrheumatic mitral (valve) insufficiency; E11.69 Type 2 diabetes mellitus with other specified complication; D64.9 Anemia, unspecified; I70.8 Atherosclerosis of other arteries; R79.1 Abnormal coagulation profile; Y83.8 Other surgical procedures as the cause of abnormal reaction of the patient, or of later complication, without mention of misadventure at the time of the procedure; T45.515A Adverse effect of anticoagulants, initial encounter; Z72.0 Tobacco use; Y92.89 Other specified places as the place of occurrence of the external cause; Z79.01 Long term (current) use of anticoagulants; Z79.899 Other long term (current) drug therapy; Z95.820 Peripheral vascular angioplasty status with implants and grafts; Z83.3 Family history of diabetes mellitus; Z80.9 Family history of malignant neoplasm, unspecified; Z82.49 Family history of ischemic heart disease and other diseases of the circulatory system
CPT/HCPCS: 36415; 71045; 73630; 75635; 80053; 80202; 81001; 82550; 82948; 83605; 83735; 83874; 84132; 84145; 84484; 85025; 85610; 85651; 85730; 86140; 86900; 86901; 87040; 87088; 93005; 93925; 93970; G0378; J1650; J1815; J1885; J2543; J3370; J3430; J3475; J7050; Q9967

== ENCOUNTER 2020-06-21 15:31 | Inpatient (IN) | payer OTHER, MEDICARE ==
[~2020-06-21] VITALS: Ht 180.3 cm; Wt 82.4 kg
[~2020-06-21 15:31] MED LIST changes: +AMLO5TAB9 PO; -AMOX500C2 PO; -LISI40TA4 PO
[2020-06-21 16:04] LABS: BASOPHILS % (AUTO) 0.5 % (0.0-5.0); EOSINOPHILS % (AUTO) 0.2 % (0.0-8.0); HEMATOCRIT 36.1 % (42-54); LYMPHOCYTES % (AUTO) 11.9 % (21.0-51.0); MEAN CORPUSCULAR HEMOGLOBIN 32.5 pg (27.0-33.0); MEAN CORPUSCULAR HGB CONC 33.2 g/dL (32.0-36.0); MEAN CORPUSCULAR VOLUME 97.8 fL (79-99); MONOCYTES % (AUTO) 6.3 % (3.0-13.0); NEUTROPHILS % (AUTO) 80.4 % (40.0-77.0); PLATELET COUNT (AUTO) 193 K/uL (130-400); RED BLOOD CELL COUNT(AUTO) 3.69 MIL/uL (4.50-6.20); RED CELL DISTRIBUTION WIDTH 13.8 % (11.0-15.5); WHITE BLOOD COUNT (AUTO) 9.4 K/uL (4.8-10.8)
[2020-06-21 16:22] LABS: CREATININE 1.1 mg/dL (0.5-1.5); POTASSIUM 3.6 mmol/L (3.5-5.1)
[2020-06-21 16:26] LABS: ALBUMIN 3.2 g/dL (3.5-5.0); BILIRUBIN,TOTAL 0.9 mg/dL (0.2-1.0); TOTAL PROTEIN, SERUM 6.6 g/dL (6.0-8.3)
[2020-06-21] MEDS: CLINDAMYCIN 600 MG/D5% WATER 50 ML IV SCH (21:30)
[2020-06-21 22:33] LABS: % IRON SATURATION 21.1 % (30-44)
[2020-06-21 22:46] LABS: CHOLESTEROL 149 mg/dL (<200); HDL CHOLESTEROL 66 mg/dL (29-71); LDL DIRECT 68 mg/dL (0-99); TRIGLYCERIDES 76 mg/dL (30-200)
[2020-06-21] MEDS ORDERED: CLINDAMYCIN 600 MG/D5% WATER 50 ML IV ONE (23:41)
[2020-06-21] MEDS ORDERED: DEXTROSE 50%-WATER 50 ML DISP.SYRIN IV PRN (23:45)
[2020-06-21] MEDS ORDERED: GLUCAGON 1MG KIT 1 MG ML IM PRN (23:45)
[2020-06-22] VITALS (19 sets, daily range): BP systolic 120–170; BP diastolic 59–90
[2020-06-22 00:46] LABS: PARTIAL THROMBOPLASTIN TIME 27.1 SEC (26.3-35.5); PROTHROMBIN TIME 10.8 SEC (9.6-11.6)
[2020-06-22] MEDS ORDERED: LISI40TA4 PO (00:49)
[2020-06-22] MEDS ORDERED: WARF3TAB59 PO (00:49)
--- NOTE | 2020-06-22 01:00 | NUR ---
admitted patient to 320. report received from VINI aranda. he is alert and oriented x 3. i cleaned his right 3rd toe with saline and kerlex. also took pictures and placed them on the chart. patient says he has been npo just in case they decide to do surgery in the am.
[2020-06-22] MEDS ORDERED: ZOSYN 3.375GM+NS 50ML 50 ML IV ONE (02:28)
[2020-06-22] MEDS: ZOSYN 3.375GM+NS 50ML 50 ML IV SCH ×3 (03:14→21:04)
--- NOTE | 2020-06-22 03:28 | NUR ---
paged doctor avani for patient's blood pressure of 181/100 and heart rate of 73. pending call back
--- NOTE | 2020-06-22 03:45 | NUR ---
doctor avani ordered 10 mg of hydralazine for blood pressure of 181/100. gave the medication and will continue to monitor blood pressure.
[2020-06-22] MEDS ORDERED: HYDRALAZINE HCL 20 MG/ML VIAL ONE (03:47)
[2020-06-22] MEDS ORDERED: HYDRALAZINE HCL 20 MG/ML VIAL IV PRN (04:00)
[2020-06-22] MEDS: CLINDAMYCIN 600 MG/D5% WATER 50 ML IV SCH ×2 (04:02→12:39)
[2020-06-22] MEDS: INSULIN HUMULIN R 100 UNIT/ML 3ML SQ SCH ×5 (06:06→21:00)
[2020-06-22 06:40] LABS: BASOPHILS % (AUTO) 0.7 % (0.0-5.0); EOSINOPHILS % (AUTO) 2.7 % (0.0-8.0); HEMATOCRIT 35.1 % (42-54); LYMPHOCYTES % (AUTO) 23.6 % (21.0-51.0); MEAN CORPUSCULAR HEMOGLOBIN 32.3 pg (27.0-33.0); MEAN CORPUSCULAR VOLUME 97.8 fL (79-99); MONOCYTES % (AUTO) 10.1 % (3.0-13.0); NEUTROPHILS % (AUTO) 62.2 % (40.0-77.0); PLATELET COUNT (AUTO) 174 K/uL (130-400); RED BLOOD CELL COUNT(AUTO) 3.59 MIL/uL (4.50-6.20); RED CELL DISTRIBUTION WIDTH 13.6 % (11.0-15.5)
[2020-06-22 07:10] LABS: ALBUMIN 2.9 g/dL (3.5-5.0); BILIRUBIN,TOTAL 1.2 mg/dL (0.2-1.0); CREATININE 0.8 mg/dL (0.5-1.5); POTASSIUM 3.5 mmol/L (3.5-5.1); TOTAL PROTEIN, SERUM 6.1 g/dL (6.0-8.3)
[2020-06-22] MEDS: MORPHINE SULFATE 2 MG/ML 1ML SYG IV PRN (07:34)
[2020-06-22] MEDS: ENOXAPARIN SODIUM 30 MG/0.3 ML SQ SCH (07:36)
[2020-06-22] MEDS: FUROSEMIDE 40 MG TABLET PO SCH (08:32)
[2020-06-22] MEDS: AMLODIPINE BESYLATE 5 MG TAB PO SCH (08:38)
[2020-06-22] MEDS: FAMOTIDINE/PF 20 MG/2 ML VIAL IV SCH ×2 (08:43→21:04)
[2020-06-22] MEDS ORDERED: ENOXAPARIN SODIUM 40 MG/0.4 ML SYRINGE SQ SCH (09:00)
--- NOTE | 2020-06-22 11:09 | NUR ---
CHART CHECK COMPLETED. Pt IS A 74 Y.O. MALE ADMITTED SECONDARY TO GANGRENE OF 3RD TOE OF RIGHT FOOT. Pt HAS A PAST MEDICAL HISTORY SIGNIFICANT FOR STATUS POST RIGHT FEMORAL ARTERY ENDARTERECTOMY, FEM-POP BYPASS WITH REVERSED CRYOPRESERVED SAPHENOUS VEIN GRAFT 01/[address] 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 Pt CURRENTLY ON REGULAR TEXTURE,THIN LIQUID DIET (HEART HEALTHY). PLEASE REQUEST FORMAL SKILLED SPEECH/SWALLOW EVALUATION IF Pt PRESENTS WITH +S/S OF ASPIRATION SUCH COUGH RESPONSE, THROAT CLEAR, OR WET VOCAL QUALITY DURING P.O. Addendum: 06/22/20 at 1112 by GILA GLORIA [facility] Amended: Links added.
[2020-06-22] MEDS: METOPROLOL TARTRATE 50 MG TAB PO SCH ×2 (13:20→21:04)
[2020-06-22] MEDS ORDERED: VANCOMYCIN PROTOCOL PER PHARMACY IV SCH (13:30)
[2020-06-22] MEDS ORDERED: VANCOMYCIN 1.75 GM in SODIUM CHLORIDE 0.9% 250 ML IV SCH (15:00)
--- NOTE | 2020-06-22 16:04 | NUR ---
DCP CM spoke to pt discussed dc plans. Pt is independent prior to admission, lives at home alone. Denies any equipments/services. Feels safe to go back home, still drives, brother able to assist with transportation and needs as necessary. Pt is a readmission, signed AMA last admission, now back again due to same issue, pending surgical intervention this time. DC plan to home once stable. CM to cont to follow up. Addendum: 06/22/20 at 1606 by KATE BAIG LVN CM Amended: Links added.
[2020-06-22] MEDS ORDERED: BUPIVACAINE/PF 0.5% 30ML VIAL ONE (16:29)
[2020-06-22] MEDS ORDERED: LIDOCAINE HCL 1% 20 ML VIAL ONE (16:29)
[2020-06-22] MEDS ORDERED: KETAMINE 50MG/ML SYRINGE 50 MG/ML DISP.SYRIN IV ONE (17:14)
[2020-06-22] MEDS ORDERED: PROPOFOL 1000 MG/100 ML 100 ML IV ONE (17:14)
[2020-06-22] MEDS ORDERED: MIDAZOLAM HCL 1 MG/ML 2ML VIAL ONE (17:17)
[2020-06-22] MEDS ORDERED: FENTANYL CITRATE PF 50 MCG/1 ML 2ML VIAL ONE (17:18)
[2020-06-22] MEDS ORDERED: EPHEDRINE SULFATE 50 MG/ML AMPULE ONE (18:03)
[2020-06-22] MEDS: ATORVASTATIN CALCIUM 40 MG TABLET PO SCH (21:04)
[2020-06-23 04:19] VITALS: BP 177/100
[2020-06-23] MEDS: ZOSYN 3.375GM+NS 50ML 50 ML IV SCH ×3 (05:40→21:49)
[2020-06-23] MEDS: INSULIN HUMULIN R 100 UNIT/ML 3ML SQ SCH ×4 (05:40→21:48)
[2020-06-23 06:20] LABS: BASOPHILS % (AUTO) 0.6 % (0.0-5.0); EOSINOPHILS % (AUTO) 2.6 % (0.0-8.0); HEMATOCRIT 37.5 % (42-54); LYMPHOCYTES % (AUTO) 15.6 % (21.0-51.0); MEAN CORPUSCULAR HEMOGLOBIN 32.9 pg (27.0-33.0); MEAN CORPUSCULAR HGB CONC 33.6 g/dL (32.0-36.0); MEAN CORPUSCULAR VOLUME 97.9 fL (79-99); MONOCYTES % (AUTO) 7.5 % (3.0-13.0); PLATELET COUNT (AUTO) 192 K/uL (130-400); RED BLOOD CELL COUNT(AUTO) 3.83 MIL/uL (4.50-6.20); RED CELL DISTRIBUTION WIDTH 13.6 % (11.0-15.5); WHITE BLOOD COUNT (AUTO) 7.2 K/uL (4.8-10.8)
[2020-06-23 06:31] LABS: POTASSIUM 3.1 mmol/L (3.5-5.1)
[2020-06-23 08:00] VITALS: BP 136/77
[2020-06-23] MEDS ORDERED: SODIUM CHLORIDE 0.9% 500ML 500 ML IV SCH (08:55)
[2020-06-23 09:31] LABS: PARTIAL THROMBOPLASTIN TIME 26.6 SEC (26.3-35.5); PROTHROMBIN TIME 10.8 SEC (9.6-11.6)
[2020-06-23] MEDS: FUROSEMIDE 40 MG TABLET PO SCH (09:58)
[2020-06-23] MEDS: VANCOMYCIN 1GM+NS 250ML 250 ML IV SCH ×2 (09:59→21:49)
[2020-06-23] MEDS: METOPROLOL TARTRATE 50 MG TAB PO SCH ×2 (09:59→21:48)
[2020-06-23] MEDS: AMLODIPINE BESYLATE 5 MG TAB PO SCH (09:59)
[2020-06-23] MEDS: ENOXAPARIN SODIUM 30 MG/0.3 ML SQ SCH (10:00)
[2020-06-23] MEDS: FAMOTIDINE/PF 20 MG/2 ML VIAL IV SCH ×2 (10:01→21:49)
[2020-06-23 11:00] VITALS: BP 126/69
--- NOTE | 2020-06-23 13:00 | NUR ---
PROCEDURE CANCELLED David Crouch QUALITY ASSISTANT of Dr Benny Harrington called to cancel procedure planned for AM due to tech for procedure unavailable for tomorrow pt to follow up in office next week as on outpatient
--- NOTE | 2020-06-23 13:30 | NUR ---
CONFUSED pt in room ,cafeteria monitor and IV cath on bedside table pt dressed with jeans and gown tucked in with sandals on ask pt what was going on he said he didnt know how that happened,he did not take the iv out .Explained to pt he needs iv for antibodic for his infected foot
--- NOTE | 2020-06-23 14:30 | NUR ---
MEDICATIONS pt took a hand full of medications as I walked in the room ,ask pt what medications he took stats took his metformin only called security to corn picker medications from the room explained to patient that we need to give him the medications while he is here in the hospital so the doctor can see what he needs to change agreed to have security corn picker medications
[2020-06-23 16:36] VITALS: BP 126/68
[2020-06-23] MEDS: MORPHINE SULFATE 2 MG/ML 1ML SYG IV PRN (17:20)
[2020-06-23 19:42] VITALS: BP 141/77
[2020-06-23] MEDS: ATORVASTATIN CALCIUM 40 MG TABLET PO SCH (21:48)
[2020-06-23] MEDS ORDERED: POTASSIUM CHLORIDE 10% ELIXIR 20 MEQ/15 ML UDCUP PO PRN (23:15)
[2020-06-23] MEDS ORDERED: POTASSIUM CHLORIDE 20MEQ/100ML 100 ML IV PRN (23:15)
[2020-06-23] MEDS ORDERED: LIDOCAINE HCL-MPF 1% 2ML VIAL IV PRN (23:15)
[2020-06-23] MEDS: POTASSIUM CHLORIDE 20 MEQ ERTAB PO PRN (23:44)
[2020-06-23 23:54] VITALS: BP 124/71
[2020-06-24] MEDS: MORPHINE SULFATE 2 MG/ML 1ML SYG IV PRN (01:00)
[2020-06-24 04:00] VITALS: BP 152/95
[2020-06-24] MEDS: ZOSYN 3.375GM+NS 50ML 50 ML IV SCH ×3 (04:18→20:50)
[2020-06-24] MEDS: INSULIN HUMULIN R 100 UNIT/ML 3ML SQ SCH ×4 (05:58→20:52)
[2020-06-24 06:37] LABS: BASOPHILS % (AUTO) 0.6 % (0.0-5.0); EOSINOPHILS % (AUTO) 3.1 % (0.0-8.0); HEMATOCRIT 35.5 % (42-54); LYMPHOCYTES % (AUTO) 24.7 % (21.0-51.0); MEAN CORPUSCULAR HEMOGLOBIN 32.9 pg (27.0-33.0); MEAN CORPUSCULAR HGB CONC 33.5 g/dL (32.0-36.0); MEAN CORPUSCULAR VOLUME 98.1 fL (79-99); MONOCYTES % (AUTO) 11.8 % (3.0-13.0); NEUTROPHILS % (AUTO) 59.2 % (40.0-77.0); PLATELET COUNT (AUTO) 176 K/uL (130-400); RED BLOOD CELL COUNT(AUTO) 3.62 MIL/uL (4.50-6.20); RED CELL DISTRIBUTION WIDTH 13.7 % (11.0-15.5); WHITE BLOOD COUNT (AUTO) 6.7 K/uL (4.8-10.8)
[2020-06-24 07:05] LABS: ALANINE AMINOTRANSFERASE 25 U/L (12-78); ASPARTATE AMINOTRANSFERASE 26 U/L (10-37); BILIRUBIN,TOTAL 1.2 mg/dL (0.2-1.0); CARBON DIOXIDE 33 mmol/L (21-32); CHLORIDE 102 mmol/L (101-111); CREATINE KINASE, TOTAL 40 U/L (21-232); CREATININE 0.8 mg/dL (0.5-1.5); GLOMERULAR FILTR. RATE CALC 100 mL/min (>60); GLUCOSE,RANDOM 126 mg/dL (70-105); MYOGLOBIN 40 ng/mL (10-92); POTASSIUM 4.1 mmol/L (3.5-5.1); SODIUM SERUM 139 mmol/L (136-145); TOTAL PROTEIN, SERUM 6.3 g/dL (6.0-8.3); TROPONIN I < 0.04 ng/mL (0.00-0.06); UREA NITROGEN, BLOOD 21 mg/dL (7-18)
[2020-06-24 07:17] VITALS: BP 152/94
--- NOTE | 2020-06-24 08:31 | NUR ---
MD ROUNDS DR. MCMAHON SPOKE TO PATIENT REGARDING PROCEDURE AB AORTOGRAM WITH BILATERAL RUNOFF WITH POSSIBLE PTCA/STENT. PER DR. MCMAHON, WILL NOT BE ABLE TO PERFORM THE PROCEDURE UNTIL SATURDAY DUE TO THE STENT MERCHANT PATROLLER NEEDS TO BE PRESENT WITH THE EQUIPMENT. DR. MCMAHON SPOKE TO MARIO SNOW, IF PATIENT IS DISCHARGED BEFORE SATURDAY THEN THE PROCEDURE CAN BE DONE OUTPATIENT. DR. MCMAHON REQUESTED TO SPEAK TO DR. SANTOS TODAY. DR. SANTOS MADE AWARE BY EDY.
[2020-06-24] MEDS: FUROSEMIDE 40 MG TABLET PO SCH (09:53)
[2020-06-24] MEDS: METOPROLOL TARTRATE 50 MG TAB PO SCH ×2 (09:53→20:51)
[2020-06-24] MEDS: FAMOTIDINE/PF 20 MG/2 ML VIAL IV SCH ×2 (09:53→20:51)
[2020-06-24] MEDS: AMLODIPINE BESYLATE 5 MG TAB PO SCH (09:53)
[2020-06-24] MEDS: VANCOMYCIN 1GM+NS 250ML 250 ML IV SCH ×2 (09:54→20:51)
[2020-06-24] MEDS: ENOXAPARIN SODIUM 30 MG/0.3 ML SQ SCH (09:56)
[2020-06-24] MEDS ORDERED: COMPOUND IV REFRIGERATED 1 EACH IVSOLN MISC PRN (10:00)
[2020-06-24 10:36] VITALS: BP 141/79
[2020-06-24] MEDS ORDERED: VANCOMYCIN 1.5 GM in SODIUM CHLORIDE 0.9% 250 ML IV SCH (14:00)
--- NOTE | 2020-06-24 15:00 | NUR ---
CM Note: [facility] pending approval CM spoke to pt discussed Dr Baez's recommendation for placement, pt will need woundcare, PT, and possibly iv abx. Patient initially declined and preferred to go back, but change his mind this afternoon. Now agreeable for short term placement, telephone consent obtained NAZANIN for [facility]. Pt aware he does not have service connection w/[facility], requested to use his secondary insurance w/Medicare instead. Faxed order, clinicals, PT, PAS[facility], Covid transfer form, confirmation received. Spoke to Nga w/[facility] aware dcp once approved, aware pt agreeable to use Medicare, aware pt pending covid test for placement ordered stat today. Pt pending approval. EMS arranged and faxed for today in case pt able to transfer, primary nurse to [facility] once pt ready to DC. Primary nurse aware. CM to cont to follow up.
[2020-06-24 15:46] VITALS: BP 143/86
[2020-06-24 20:03] VITALS: BP 125/79
[2020-06-24] MEDS: ATORVASTATIN CALCIUM 40 MG TABLET PO SCH (20:51)
[2020-06-24] MEDS ORDERED: VANCOMYCIN 1.25 GM in SODIUM CHLORIDE 0.9% 250 ML IV SCH (21:00)
[2020-06-25 01:05] VITALS: BP_SYST 138; BP_SYST 153; BP_DIAS 68; BP_DIAS 74
[2020-06-25] MEDS: ZOSYN 3.375GM+NS 50ML 50 ML IV SCH ×3 (04:11→21:40)
[2020-06-25 04:35] VITALS: BP 156/69
[2020-06-25] MEDS: MORPHINE SULFATE 2 MG/ML 1ML SYG IV PRN (05:10)
[2020-06-25] MEDS: INSULIN HUMULIN R 100 UNIT/ML 3ML SQ SCH ×4 (06:11→21:00)
[2020-06-25 07:27] VITALS: BP 161/91
[2020-06-25] MEDS: VANCOMYCIN 1.25 GM in SODIUM CHLORIDE 0.9% 250 ML IV SCH ×2 (07:50→18:09)
[2020-06-25] MEDS: FUROSEMIDE 40 MG TABLET PO SCH (08:46)
[2020-06-25] MEDS: AMLODIPINE BESYLATE 5 MG TAB PO SCH (08:46)
[2020-06-25] MEDS: FAMOTIDINE/PF 20 MG/2 ML VIAL IV SCH ×2 (08:46→21:40)
[2020-06-25] MEDS: METOPROLOL TARTRATE 50 MG TAB PO SCH ×2 (08:46→21:40)
[2020-06-25] MEDS: ENOXAPARIN SODIUM 30 MG/0.3 ML SQ SCH (08:47)
[2020-06-25 10:46] VITALS: BP 105/58
--- NOTE | 2020-06-25 12:30 | NUR ---
[facility] Per Nga Terrell, they are pending to verify Medicare days. Nga [facility] is still trying to obtain Medicare number. Call placed to [facility] registration desk. Medicare information obtained and sent to Nga along w JULEE test results. Per Nga will confirm SNF days and get back to .
[2020-06-25 15:34] VITALS: BP 132/74
[2020-06-25] MEDS: ATORVASTATIN CALCIUM 40 MG TABLET PO SCH (21:40)
[2020-06-25 21:41] VITALS: BP 165/84
[2020-06-26 00:31] VITALS: BP 160/80
[2020-06-26 03:50] VITALS: BP 137/65
[2020-06-26] MEDS: ZOSYN 3.375GM+NS 50ML 50 ML IV SCH (04:31)
[2020-06-26] MEDS: VANCOMYCIN 1.25 GM in SODIUM CHLORIDE 0.9% 250 ML IV SCH (05:42)
[2020-06-26 06:20] LABS: BASOPHILS % (AUTO) 0.6 % (0.0-5.0); EOSINOPHILS % (AUTO) 1.5 % (0.0-8.0); HEMATOCRIT 31.7 % (42-54); LYMPHOCYTES % (AUTO) 12.8 % (21.0-51.0); MEAN CORPUSCULAR HEMOGLOBIN 32.8 pg (27.0-33.0); MEAN CORPUSCULAR HGB CONC 33.4 g/dL (32.0-36.0); MEAN CORPUSCULAR VOLUME 98.1 fL (79-99); MONOCYTES % (AUTO) 9.8 % (3.0-13.0); PLATELET COUNT (AUTO) 172 K/uL (130-400); RED BLOOD CELL COUNT(AUTO) 3.23 MIL/uL (4.50-6.20); RED CELL DISTRIBUTION WIDTH 13.5 % (11.0-15.5); WHITE BLOOD COUNT (AUTO) 6.7 K/uL (4.8-10.8)
[2020-06-26] MEDS: INSULIN HUMULIN R 100 UNIT/ML 3ML SQ SCH ×4 (06:30→21:00)
[2020-06-26 08:08] VITALS: BP 142/85
[2020-06-26 09:00] LABS: ALBUMIN 2.5 g/dL (3.5-5.0); BILIRUBIN,TOTAL 1.1 mg/dL (0.2-1.0); CREATININE 1.2 mg/dL (0.5-1.5); POTASSIUM 3.2 mmol/L (3.5-5.1); TOTAL PROTEIN, SERUM 5.5 g/dL (6.0-8.3)
[2020-06-26] MEDS: METOPROLOL TARTRATE 50 MG TAB PO SCH ×2 (09:12→21:37)
[2020-06-26] MEDS: AMLODIPINE BESYLATE 5 MG TAB PO SCH (09:12)
[2020-06-26] MEDS: FUROSEMIDE 40 MG TABLET PO SCH (09:12)
[2020-06-26] MEDS: FAMOTIDINE/PF 20 MG/2 ML VIAL IV SCH ×2 (09:12→21:37)
[2020-06-26] MEDS: ENOXAPARIN SODIUM 30 MG/0.3 ML SQ SCH (09:12)
[2020-06-26 10:34] VITALS: BP 120/66
[2020-06-26] MEDS: CEPHALEXIN 500 MG CAPSULE PO SCH ×2 (12:51→21:38)
[2020-06-26] MEDS: POTASSIUM CHLORIDE 20 MEQ ERTAB PO PRN ×3 (13:00→18:16)
[2020-06-26 15:35] VITALS: BP 141/74
--- NOTE | 2020-06-26 16:00 | NUR ---
PER EDY, DR. SANTOS AND DR. López MCMAHON ARE PLANNING AORTOGRAM PROCEDURE FOR TOMORROW. PATIENT MADE AWARE AND VOICED UNDERSTANDING.
[2020-06-26 20:33] VITALS: BP 126/80
[2020-06-26] MEDS: ATORVASTATIN CALCIUM 40 MG TABLET PO SCH (21:37)
[2020-06-27 00:47] VITALS: BP 141/66
[2020-06-27 04:11] VITALS: BP 154/83
[2020-06-27 06:26] LABS: BASOPHILS % (AUTO) 0.7 % (0.0-5.0); EOSINOPHILS % (AUTO) 2.5 % (0.0-8.0); HEMATOCRIT 32.6 % (42-54); LYMPHOCYTES % (AUTO) 22.1 % (21.0-51.0); MEAN CORPUSCULAR HEMOGLOBIN 32.6 pg (27.0-33.0); MEAN CORPUSCULAR HGB CONC 33.4 g/dL (32.0-36.0); MEAN CORPUSCULAR VOLUME 97.6 fL (79-99); MONOCYTES % (AUTO) 9.5 % (3.0-13.0); NEUTROPHILS % (AUTO) 64.7 % (40.0-77.0); PLATELET COUNT (AUTO) 175 K/uL (130-400); RED BLOOD CELL COUNT(AUTO) 3.34 MIL/uL (4.50-6.20); RED CELL DISTRIBUTION WIDTH 13.3 % (11.0-15.5); WHITE BLOOD COUNT (AUTO) 6.1 K/uL (4.8-10.8)
[2020-06-27 06:37] LABS: ALBUMIN 2.9 g/dL (3.5-5.0); BILIRUBIN,TOTAL 1.1 mg/dL (0.2-1.0); CREATININE 1.2 mg/dL (0.5-1.5); POTASSIUM 3.5 mmol/L (3.5-5.1); TOTAL PROTEIN, SERUM 5.5 g/dL (6.0-8.3)
[2020-06-27] MEDS: INSULIN HUMULIN R 100 UNIT/ML 3ML SQ SCH ×4 (06:45→21:45)
[2020-06-27 07:16] VITALS: BP 146/97
[2020-06-27 07:29] LABS: INR 0.97 (0.85-1.15); PARTIAL THROMBOPLASTIN TIME 27.8 SEC (26.3-35.5); PROTHROMBIN TIME 10.5 SEC (9.6-11.6)
[2020-06-27] MEDS: ENOXAPARIN SODIUM 30 MG/0.3 ML SQ SCH (09:00)
[2020-06-27] MEDS: AMLODIPINE BESYLATE 5 MG TAB PO SCH (09:11)
[2020-06-27] MEDS: FUROSEMIDE 40 MG TABLET PO SCH (09:11)
[2020-06-27] MEDS: FAMOTIDINE/PF 20 MG/2 ML VIAL IV SCH ×2 (09:11→21:43)
[2020-06-27] MEDS: CEPHALEXIN 500 MG CAPSULE PO SCH ×2 (09:11→21:44)
[2020-06-27] MEDS: METOPROLOL TARTRATE 50 MG TAB PO SCH ×2 (09:11→21:43)
[2020-06-27 11:31] VITALS: BP 140/91
[2020-06-27] MEDS ORDERED: HEPARIN SODIUM 1000UNIT/ML 10ML VIAL ONE (13:53)
[2020-06-27] MEDS ORDERED: LIDOCAINE HCL 2% 20ML ONE (13:53)
[2020-06-27] MEDS ORDERED: IODIXANOL 320 MG/ML 100 ML VIAL ONE (13:53)
--- NOTE | 2020-06-27 14:00 | NUR ---
NOTE OUT OF ROOM VIA BED FOR PUBLIC TRANSIT TROLLEY DRIVER FOR PERIPHERAL ANGIOGRAM. STABLE UPON LEAVING. DR MCMAHON CAME IN THIS AM AND SCHEDULED HIM.
[2020-06-27] MEDS ORDERED: FENTANYL CITRATE PF 50 MCG/1 ML 2ML VIAL ONE (14:35)
[2020-06-27] MEDS ORDERED: MIDAZOLAM HCL 1 MG/ML 2ML VIAL ONE (14:35)
[2020-06-27] MEDS ORDERED: NITROGLYCERIN 2 MG/VIAL VIAL IV ONE ×2 (14:46→16:23)
[2020-06-27] MEDS ORDERED: NICARDIPINE HCL 25 MG/10 ML ML IV ONE (14:47)
[2020-06-27] MEDS ORDERED: SODIUM CHLORIDE 0.9% 1000ML 1,000 ML IV SCH (17:04)
[2020-06-27] MEDS ORDERED: HYDRALAZINE HCL 20 MG/ML VIAL IV PRN (17:15)
[2020-06-27 17:40] VITALS: BP 161/82
--- NOTE | 2020-06-27 17:45 | NUR ---
NOTE BACK FROM ANGIOGRAM. LEFT WRIST PRESSURE DEVICE APPLIED TO CONTROL BLEEDING FROM PUNCTURE SITE. HIS LEFT HAND APPEARS PALE COLD AND A LITTLE MOTTLED. CONTINUOUS PULSE OXYMETER PLACED TO LEFT THUMB AND HE IS SATS 94% HEART RATE 80'S. DENIES PAIN OR NUMBNESS. HAS FULL ROM TO HAND. CAPILLARY REFILL POOR TO ABSENT. VASCULAR MANAGER NURSE LUIS ALBERTO CALLED DR MCMAHON AND INFORMED HIM ABOUT THIS AND HE SAYS TO APPLY 1/2 INCH PROXIMAL TO PUNCTURE SITE. DRESSING D/I. LUIS ALBERTO STAYED FOR A FEW MORE MINUTES AFTER NITRO WAS APPLIED AND HE STARTED TO GET PINKISH HUE TO POSTERIOR SIDE OF HAND. I ATTEMPTED TO DRAW 2 CC FROM PRESSURE DEVICE PER PROTOCOL BUT PATIENT STARTED BLEEDING SO 2 CC AIR WERE INSTILLED BACK INTO BRACELET PRESSURE DEVICE. PATIENT CONTINUES TO FEEL ASYMPTOMATIC.
[2020-06-27] MEDS ORDERED: NITROGLYCERIN 1GM/1 INCH PACKET TD ONE (17:46)
--- NOTE | 2020-06-27 18:35 | NUR ---
NOTE PATIENT STUBBORN GOT NAKED AND WAS WALKING IN THE ROOM AND COMPLAINING ABOUT FOOD AND PROCEDURE NOT DONE. CIRCULATION NOT RESTORED TO HIS LEG. AND STATES WE TREAT HIM IF IN [facility]. 2 CC AIR REMOVED FROM PRESSURE DEVICE AND THIS TIME HE TOLERATED WITHOUT BLEEDING.
[2020-06-27] MEDS ORDERED: NITROGLYCERIN 1GM/1 INCH PACKET TD SCH (19:30)
[2020-06-27 20:00] VITALS: BP 159/87
[2020-06-27] MEDS: ATORVASTATIN CALCIUM 40 MG TABLET PO SCH (21:43)
[2020-06-28] VITALS: BP 132/56
[2020-06-28 03:42] VITALS: BP 160/82
[2020-06-28 04:42] LABS: BASOPHILS % (AUTO) 0.6 % (0.0-5.0); HEMATOCRIT 31.5 % (42-54); LYMPHOCYTES % (AUTO) 19.2 % (21.0-51.0); MEAN CORPUSCULAR HEMOGLOBIN 32.3 pg (27.0-33.0); MEAN CORPUSCULAR VOLUME 97.8 fL (79-99); MONOCYTES % (AUTO) 9.3 % (3.0-13.0); NEUTROPHILS % (AUTO) 68.4 % (40.0-77.0); PLATELET COUNT (AUTO) 190 K/uL (130-400); RED BLOOD CELL COUNT(AUTO) 3.22 MIL/uL (4.50-6.20); RED CELL DISTRIBUTION WIDTH 13.2 % (11.0-15.5); WHITE BLOOD COUNT (AUTO) 6.6 K/uL (4.8-10.8)
[2020-06-28 05:06] LABS: ALBUMIN 2.8 g/dL (3.5-5.0); CREATININE 1.3 mg/dL (0.5-1.5); POTASSIUM 3.4 mmol/L (3.5-5.1); TOTAL PROTEIN, SERUM 6.1 g/dL (6.0-8.3)
[2020-06-28] MEDS: INSULIN HUMULIN R 100 UNIT/ML 3ML SQ SCH ×3 (06:02→16:30)
[2020-06-28] MEDS: POTASSIUM CHLORIDE 20 MEQ ERTAB PO PRN ×2 (06:11→11:05)
--- NOTE | 2020-06-28 06:20 | NUR ---
TR BAND to left hand discontinued: No bleeding noted. Left hand warm to touch. Sensation intact. Denies feeling of discomfort. Capillary refills <2-3 secs with O2Sat maintaining at 98-99%, RA taken at left hand. Sterile dressing applied.
[2020-06-28 07:58] VITALS: BP 158/79
[2020-06-28] MEDS: FAMOTIDINE/PF 20 MG/2 ML VIAL IV SCH (11:01)
[2020-06-28] MEDS: CEPHALEXIN 500 MG CAPSULE PO SCH (11:02)
[2020-06-28] MEDS: AMLODIPINE BESYLATE 5 MG TAB PO SCH (11:02)
[2020-06-28] MEDS: FUROSEMIDE 40 MG TABLET PO SCH (11:02)
[2020-06-28] MEDS: METOPROLOL TARTRATE 50 MG TAB PO SCH (11:02)
[2020-06-28] MEDS: ENOXAPARIN SODIUM 30 MG/0.3 ML SQ SCH (11:03)
[2020-06-28 11:29] VITALS: BP 135/81
--- NOTE | 2020-06-28 15:12 | NUR ---
NUTRITION EDUCATION Attempt to provide Nutrition education over phone - no answer. Education materials faxed to [phone]), RN notified. JEAN to continue to monitor. NUTRITION NOTE: Pt tolerating 75gm CC diet order with no report of GI distress. Good PO intake at 100%. Noted BLE 3+ edema. S/p procedure. Pending discharge to [facility]. Addendum: 06/28/20 at [address] Amended: Links added.
[2020-06-28 16:15] VITALS: BP 106/87
--- NOTE | 2020-06-28 18:30 | NUR ---
Note Discharge instructions given to patient and called report to [facility] receiving nurse. Refer to dc summary for details. Dressing to right foot, amputation site d/i sutures intact no dehiscence no redness or drainage noted. Pictures taken as per protocol.
== END 2020-06-28 19:24 | DRG 256 ==
LOC: EDH 15:31 → EDHIP 21:26 → 3CH 23:23
PROVIDERS: ADMIT Hospitalist; ATTEND Hospitalist
PROC: 0Y6T0Z0 Detachment at Right 3rd Toe, Complete, Open Approach (ICD-10-PCS; 2020-06-22)
PROC: B41C1ZZ Fluoroscopy of Pelvic Arteries using Low Osmolar Contrast (ICD-10-PCS; principal; 2020-06-27)
DX: T82.898A Other specified complication of vascular prosthetic devices, implants and grafts, initial encounter (principal); E11.52 Type 2 diabetes mellitus with diabetic peripheral angiopathy with gangrene; L03.116 Cellulitis of left lower limb; L03.115 Cellulitis of right lower limb; I96 Gangrene, not elsewhere classified; I48.20 Chronic atrial fibrillation, unspecified; M86.8X7 Other osteomyelitis, ankle and foot; E11.69 Type 2 diabetes mellitus with other specified complication; I87.2 Venous insufficiency (chronic) (peripheral); I10 Essential (primary) hypertension; E78.5 Hyperlipidemia, unspecified; B35.1 Tinea unguium; L60.0 Ingrowing nail; L60.2 Onychogryphosis; E66.9 Obesity, unspecified; I99.8 Other disorder of circulatory system; N19 Unspecified kidney failure; R79.1 Abnormal coagulation profile; Z20.828 Contact with and (suspected) exposure to other viral communicable diseases; Y83.2 Surgical operation with anastomosis, bypass or graft as the cause of abnormal reaction of the patient, or of later complication, without mention of misadventure at the time of the procedure; Z68.25 Body mass index [BMI] 25.0-25.9, adult; Y92.89 Other specified places as the place of occurrence of the external cause; Z79.01 Long term (current) use of anticoagulants; Z95.5 Presence of coronary angioplasty implant and graft; Z87.891 Personal history of nicotine dependence; Z91.19 Patient's noncompliance with other medical treatment and regimen; Z80.9 Family history of malignant neoplasm, unspecified; Z82.49 Family history of ischemic heart disease and other diseases of the circulatory system
CPT/HCPCS: 36246; 36415; 71045; 73630; 75710; 80048; 80053; 80061; 80202; 82550; 82948; 83036; 83540; 83550; 83874; 84145; 84484; 85025; 85610; 85730; 87070; 87076; 87077; 87186; 87205; 87426; 87486; 87581; 87633; 87798; 88305; 88307; 88311; 88312; 93005; 97039; 99156; 99157; C1769; G0378; J0360; J1644; J1650; J1815; J2250; J2543; J2704; J3010; J3370; J3480; J3490; J7030; J7040; J7050; Q9967; U0003

== ENCOUNTER 2020-11-08 15:34 | Inpatient (IN) | payer MEDICARE, OTHER ==
[~2020-11-08] VITALS: Ht 180.3 cm; Wt 77.4 kg
[~2020-11-08 15:34] MED LIST changes: +AMLO-257 PO; -AMLO5TAB9 PO; +AMPI500C12 PO; +CLOP75TA14 PO; +DOCU100T9 PO; +FERR-82 PO; -IRON PO; +LEVO750T46 PO; +LISI40TA9 PO; +WARF-67 PO; -WARF3TAB59 PO
[2020-11-08] MEDS ORDERED: DEXTROSE 50%-WATER 50 ML DISP.SYRIN IV PRN (16:30)
[2020-11-08] MEDS ORDERED: GLUCAGON 1MG KIT 1 MG ML IM PRN (16:30)
[2020-11-08] MEDS: INSULIN HUMULIN R 100 UNIT/ML 3ML SQ SCH ×2 (16:30→21:00)
[2020-11-08 16:55] LABS: BASOPHILS % (AUTO) 0.4 % (0.0-5.0); EOSINOPHILS % (AUTO) 0.2 % (0.0-8.0); HEMATOCRIT 31.4 % (42-54); LYMPHOCYTES % (AUTO) 12.7 % (21.0-51.0); MEAN CORPUSCULAR HEMOGLOBIN 31.2 pg (27.0-33.0); MEAN CORPUSCULAR HGB CONC 33.4 g/dL (32.0-36.0); MEAN CORPUSCULAR VOLUME 93.2 fL (79-99); MONOCYTES % (AUTO) 7.1 % (3.0-13.0); PLATELET COUNT (AUTO) 266 K/uL (130-400); RED BLOOD CELL COUNT(AUTO) 3.37 MIL/uL (4.50-6.20); WHITE BLOOD COUNT (AUTO) 9.5 K/uL (4.8-10.8)
[2020-11-08 17:15] LABS: ALBUMIN 2.6 g/dL (3.5-5.0); BILIRUBIN,TOTAL 0.4 mg/dL (0.2-1.0); CREATININE 2.1 mg/dL (0.5-1.5); POTASSIUM 3.8 mmol/L (3.5-5.1); TOTAL PROTEIN, SERUM 6.1 g/dL (6.0-8.3)
[2020-11-08] MEDS: ZOSYN 3.375GM+NS 50ML 50 ML IV SCH ×2 (20:00→21:00)
[2020-11-08] MEDS ORDERED: MORPHINE 2 MG SYG IVP PRN (20:00)
[2020-11-08] MEDS ORDERED: ACETAMINOPHEN 325 MG TAB PO PRN ×2 (20:00)
[2020-11-08] MEDS ORDERED: VANCOMYCIN PROTOCOL PER PHARMACY IV SCH (20:00)
[2020-11-08] MEDS ORDERED: ONDANSETRON 4MG INJ IVP PRN (20:00)
[2020-11-08] MEDS: METOPROLOL TARTRATE 50 MG TAB PO SCH (21:00)
[2020-11-08] MEDS: ATORVASTATIN 40 MG TABLET PO SCH (21:00)
[2020-11-08] MEDS ORDERED: METOPROLOL TARTRATE 50 MG TAB ONE (21:12)
[2020-11-08] MEDS ORDERED: ATORVASTATIN 40 MG TABLET ONE (21:12)
[2020-11-08 21:27] LABS: INR 1.18 (0.85-1.15); PROTHROMBIN TIME 12.5 SEC (9.6-11.6)
[2020-11-08 21:28] LABS: PARTIAL THROMBOPLASTIN TIME 28.2 SEC (26.3-35.5)
[2020-11-08] MEDS ORDERED: HYDROCODONE/ACETAMINOPHEN 5/325 MG TAB PO PRN (21:30)
[2020-11-08] MEDS ORDERED: HYDROCODONE/ACETAMINOPHEN 5/325 MG TAB ONE (21:57)
[2020-11-09] MEDS ORDERED: ZOSYN 3.375GM+NS 50ML 50 ML IV ONE (02:37)
[2020-11-09 03:07] VITALS: BP 109/54
[2020-11-09] MEDS ORDERED: MORPHINE 2 MG SYG ONE (03:45)
[2020-11-09] MEDS: INSULIN HUMULIN R 100 UNIT/ML 3ML SQ SCH ×4 (06:15→21:00)
[2020-11-09] MEDS ORDERED: VANCOMYCIN 1G 1.5 GM in 0.9% NACL 250ML 250 ML IV SCH (06:43)
[2020-11-09 07:30] VITALS: BP 125/73
[2020-11-09] MEDS: ZOSYN 3.375GM+NS 50ML 50 ML IV SCH ×2 (09:00→20:55)
[2020-11-09] MEDS ORDERED: LISINOPRIL 40 MG TABLET PO SCH (09:00)
[2020-11-09 11:00] VITALS: BP 130/71
[2020-11-09] MEDS ORDERED: RENAL DOSE IV SCH (11:30)
[2020-11-09] MEDS: ASPIRIN 81MG CHEW TAB PO SCH (14:35)
[2020-11-09] MEDS: METOPROLOL TARTRATE 50 MG TAB PO SCH ×2 (14:35→20:55)
[2020-11-09] MEDS: CLOPIDOGREL 75MG TAB PO SCH (14:36)
[2020-11-09] MEDS: AMLODIPINE 5 MG TAB PO SCH (14:36)
[2020-11-09] MEDS: ZYVOX 600 MG TAB PO SCH (14:36)
[2020-11-09 16:00] VITALS: BP 108/57
[2020-11-09 16:54] LABS: APPEARANCE,URINE Clear (CLEAR); BILIRUBIN,URINE Negative (NEGATIVE); COLOR,URINE Yellow (YELLOW); GLUCOSE, URINE (UA) Negative (NEGATIVE); KETONES,URINE Negative (NEGATIVE); LEUKOCYTE ESTERASE ,URINE Negative (NEGATIVE); NITRATE,URINE Negative (NEGATIVE); OCCULT BLOOD,URINE Negative (NEGATIVE); PROTEIN,URINE Negative (NEGATIVE); UROBILINOGEN,URINE 0.2 mg/dL (0.2-1.0)
[2020-11-09 16:58] LABS: CREATININE,URINE RANDOM 175 mg/dL (30-135); SODIUM,URINE RANDOM 63 mmol/l (40-220)
[2020-11-09 20:00] VITALS: BP 105/56
[2020-11-09] MEDS: ATORVASTATIN 40 MG TABLET PO SCH (20:55)
[2020-11-09] MEDS: ENOXAPARIN SODIUM 80 MG/0.8 ML SQ SCH (20:57)
[2020-11-09 23:37] VITALS: BP 100/52
[2020-11-10] MEDS: ZYVOX 600 MG TAB PO SCH (02:11)
[2020-11-10 04:00] VITALS: BP 117/53
[2020-11-10 04:46] LABS: BASOPHILS % (AUTO) 0.4 % (0.0-5.0); EOSINOPHILS % (AUTO) 2.2 % (0.0-8.0); HEMATOCRIT 31.8 % (42-54); MEAN CORPUSCULAR HEMOGLOBIN 30.5 pg (27.0-33.0); MEAN CORPUSCULAR HGB CONC 32.7 g/dL (32.0-36.0); MEAN CORPUSCULAR VOLUME 93.3 fL (79-99); MONOCYTES % (AUTO) 6.1 % (3.0-13.0); NEUTROPHILS % (AUTO) 74.8 % (40.0-77.0); PLATELET COUNT (AUTO) 263 K/uL (130-400); RED BLOOD CELL COUNT(AUTO) 3.41 MIL/uL (4.50-6.20); RED CELL DISTRIBUTION WIDTH 12.8 % (11.0-15.5); WHITE BLOOD COUNT (AUTO) 7.7 K/uL (4.8-10.8)
[2020-11-10 04:52] LABS: CREATININE 1.4 mg/dL (0.5-1.5); MAGNESIUM 0.9 mg/dL (1.80-2.40); PHOSPHORUS 4.1 mg/dL (2.5-4.9); POTASSIUM 3.3 mmol/L (3.5-5.1); URIC ACID 8.8 mg/dL (2.6-7.2)
[2020-11-10 05:15] LABS: % IRON SATURATION 12.4 % (30-44)
[2020-11-10] MEDS: INSULIN HUMULIN R 100 UNIT/ML 3ML SQ SCH ×4 (06:45→21:00)
[2020-11-10] MEDS ORDERED: POTASSIUM CHLORIDE 10% ELIXIR 20 MEQ/15 ML UDCUP PO PRN (07:45)
[2020-11-10] MEDS ORDERED: POTASSIUM CHLORIDE 20MEQ/100ML 100 ML IV PRN (07:45)
[2020-11-10 08:47] VITALS: BP 127/65
[2020-11-10] MEDS ORDERED: VANCOMYCIN 1G/250ML KIT 250 ML IV SCH (09:00)
[2020-11-10] MEDS: ZOSYN 3.375GM+NS 50ML 50 ML IV SCH ×2 (09:00→21:18)
[2020-11-10] MEDS: AMLODIPINE 5 MG TAB PO SCH (10:28)
[2020-11-10] MEDS: ASPIRIN 81MG CHEW TAB PO SCH (10:29)
[2020-11-10] MEDS: METOPROLOL TARTRATE 50 MG TAB PO SCH ×2 (10:29→21:18)
[2020-11-10] MEDS: CLOPIDOGREL 75MG TAB PO SCH (10:29)
[2020-11-10] MEDS: ENOXAPARIN SODIUM 80 MG/0.8 ML SQ SCH ×2 (10:30→21:21)
[2020-11-10 11:04] LABS: INR 1.14 (0.85-1.15); PROTHROMBIN TIME 12.1 SEC (9.6-11.6)
[2020-11-10 11:57] VITALS: BP 110/57
[2020-11-10 16:23] VITALS: BP 115/58
[2020-11-10 20:00] VITALS: BP 137/52
[2020-11-10] MEDS: ATORVASTATIN 40 MG TABLET PO SCH (21:18)
[2020-11-10] MEDS: KCL 20 MEQ ERTAB PO PRN ×2 (21:19→22:56)
[2020-11-10] MEDS: HYDROCODONE/ACETAMINOPHEN 5/325 MG TAB PO PRN (21:20)
[2020-11-11] VITALS: BP 117/66
[2020-11-11] MEDS: ZYVOX 600 MG TAB PO SCH ×3 (02:08→14:47)
[2020-11-11 04:00] VITALS: BP 132/75
[2020-11-11 04:42] LABS: BASOPHILS % (AUTO) 0.4 % (0.0-5.0); EOSINOPHILS % (AUTO) 2.9 % (0.0-8.0); HEMATOCRIT 31.8 % (42-54); LYMPHOCYTES % (AUTO) 19.7 % (21.0-51.0); MEAN CORPUSCULAR HEMOGLOBIN 30.2 pg (27.0-33.0); MEAN CORPUSCULAR HGB CONC 32.4 g/dL (32.0-36.0); MEAN CORPUSCULAR VOLUME 93.3 fL (79-99); MONOCYTES % (AUTO) 5.8 % (3.0-13.0); NEUTROPHILS % (AUTO) 70.4 % (40.0-77.0); PLATELET COUNT (AUTO) 258 K/uL (130-400); RED BLOOD CELL COUNT(AUTO) 3.41 MIL/uL (4.50-6.20); RED CELL DISTRIBUTION WIDTH 12.9 % (11.0-15.5); WHITE BLOOD COUNT (AUTO) 7.2 K/uL (4.8-10.8)
[2020-11-11 04:59] LABS: CREATININE 0.9 mg/dL (0.5-1.5); POTASSIUM 3.7 mmol/L (3.5-5.1)
[2020-11-11] MEDS: INSULIN HUMULIN R 100 UNIT/ML 3ML SQ SCH ×4 (05:59→20:35)
[2020-11-11 08:00] VITALS: BP 130/78
[2020-11-11] MEDS: ZOSYN 3.375GM+NS 50ML 50 ML IV SCH ×2 (10:05→20:37)
[2020-11-11] MEDS: AMLODIPINE 5 MG TAB PO SCH (10:07)
[2020-11-11] MEDS: ASPIRIN 81MG CHEW TAB PO SCH (10:07)
[2020-11-11] MEDS: METOPROLOL TARTRATE 50 MG TAB PO SCH ×2 (10:07→20:38)
[2020-11-11] MEDS: CLOPIDOGREL 75MG TAB PO SCH (10:08)
[2020-11-11] MEDS: ENOXAPARIN SODIUM 80 MG/0.8 ML SQ SCH ×2 (10:09→20:37)
[2020-11-11] MEDS: HYDROCODONE/ACETAMINOPHEN 5/325 MG TAB PO PRN ×2 (10:22→19:40)
[2020-11-11 12:00] VITALS: BP 96/61
[2020-11-11 16:00] VITALS: BP 117/63
[2020-11-11] MEDS: ATORVASTATIN 40 MG TABLET PO SCH (20:37)
[2020-11-11 20:40] VITALS: BP 117/58
[2020-11-11] MEDS: MAGNESIUM 2GM PREMIX 50ML 50 ML IV PRN ×2 (20:50→23:04)
[2020-11-12] VITALS (7 sets, daily range): BP systolic 109–173; BP diastolic 50–89
[2020-11-12] MEDS: ZYVOX 600 MG TAB PO SCH ×2 (01:20→13:26)
[2020-11-12 05:39] LABS: BASOPHILS % (AUTO) 0.5 % (0.0-5.0); EOSINOPHILS % (AUTO) 2.9 % (0.0-8.0); HEMATOCRIT 32.6 % (42-54); LYMPHOCYTES % (AUTO) 19.5 % (21.0-51.0); MEAN CORPUSCULAR HEMOGLOBIN 30.3 pg (27.0-33.0); MEAN CORPUSCULAR HGB CONC 32.2 g/dL (32.0-36.0); MEAN CORPUSCULAR VOLUME 93.9 fL (79-99); MONOCYTES % (AUTO) 6.3 % (3.0-13.0); PLATELET COUNT (AUTO) 249 K/uL (130-400); RED BLOOD CELL COUNT(AUTO) 3.47 MIL/uL (4.50-6.20); WHITE BLOOD COUNT (AUTO) 6.6 K/uL (4.8-10.8)
[2020-11-12] MEDS: INSULIN HUMULIN R 100 UNIT/ML 3ML SQ SCH ×4 (06:02→20:34)
[2020-11-12 06:12] LABS: MAGNESIUM 1.8 mg/dL (1.80-2.40)
[2020-11-12] MEDS: MAGNESIUM 2GM PREMIX 50ML 50 ML IV PRN (06:23)
[2020-11-12] MEDS: CLOPIDOGREL 75MG TAB PO SCH (08:31)
[2020-11-12] MEDS: ASPIRIN 81MG CHEW TAB PO SCH (08:31)
[2020-11-12] MEDS: METOPROLOL TARTRATE 50 MG TAB PO SCH ×2 (08:32→20:31)
[2020-11-12] MEDS: AMLODIPINE 5 MG TAB PO SCH (08:32)
[2020-11-12] MEDS: ENOXAPARIN SODIUM 80 MG/0.8 ML SQ SCH ×2 (08:33→20:31)
[2020-11-12] MEDS: ZOSYN 3.375GM+NS 50ML 50 ML IV SCH ×2 (08:35→20:31)
[2020-11-12] MEDS: HYDROCODONE/ACETAMINOPHEN 5/325 MG TAB PO PRN ×2 (08:45→18:40)
[2020-11-12] MEDS: ATORVASTATIN 40 MG TABLET PO SCH (20:31)
[2020-11-13] MEDS: ZYVOX 600 MG TAB PO SCH ×2 (01:33→13:16)
[2020-11-13 03:58] VITALS: BP 159/79
[2020-11-13 05:53] LABS: BASOPHILS % (AUTO) 0.5 % (0.0-5.0); EOSINOPHILS % (AUTO) 0.5 % (0.0-8.0); HEMATOCRIT 34.6 % (42-54); LYMPHOCYTES % (AUTO) 11.1 % (21.0-51.0); MEAN CORPUSCULAR HEMOGLOBIN 30.5 pg (27.0-33.0); MEAN CORPUSCULAR HGB CONC 32.7 g/dL (32.0-36.0); MEAN CORPUSCULAR VOLUME 93.3 fL (79-99); MONOCYTES % (AUTO) 4.2 % (3.0-13.0); NEUTROPHILS % (AUTO) 83.2 % (40.0-77.0); PLATELET COUNT (AUTO) 252 K/uL (130-400); RED BLOOD CELL COUNT(AUTO) 3.71 MIL/uL (4.50-6.20); RED CELL DISTRIBUTION WIDTH 12.8 % (11.0-15.5); WHITE BLOOD COUNT (AUTO) 8.1 K/uL (4.8-10.8)
[2020-11-13 06:00] LABS: INR 1.03 (0.85-1.15)
[2020-11-13] MEDS: INSULIN HUMULIN R 100 UNIT/ML 3ML SQ SCH ×4 (06:31→20:07)
[2020-11-13 06:36] LABS: CREATININE 0.9 mg/dL (0.5-1.5); MAGNESIUM 1.8 mg/dL (1.80-2.40); POTASSIUM 3.8 mmol/L (3.5-5.1)
[2020-11-13] MEDS: MAGNESIUM 2GM PREMIX 50ML 50 ML IV PRN (06:40)
[2020-11-13 08:00] VITALS: BP 165/81
[2020-11-13] MEDS: AMLODIPINE 5 MG TAB PO SCH (09:39)
[2020-11-13] MEDS: ASPIRIN 81MG CHEW TAB PO SCH (09:40)
[2020-11-13] MEDS: CLOPIDOGREL 75MG TAB PO SCH (09:40)
[2020-11-13] MEDS: METOPROLOL TARTRATE 50 MG TAB PO SCH ×2 (09:40→19:12)
[2020-11-13] MEDS: ZOSYN 3.375GM+NS 50ML 50 ML IV SCH ×2 (09:40→19:10)
[2020-11-13] MEDS: ENOXAPARIN SODIUM 80 MG/0.8 ML SQ SCH ×3 (09:41→20:54)
[2020-11-13 11:20] VITALS: BP 116/74
[2020-11-13 12:00] VITALS: BP 109/61
[2020-11-13 15:12] LABS: HEMATOCRIT 32.9 % (42-54); MEAN CORPUSCULAR HEMOGLOBIN 30.3 pg (27.0-33.0); MEAN CORPUSCULAR HGB CONC 32.2 g/dL (32.0-36.0); RED BLOOD CELL COUNT(AUTO) 3.5 MIL/uL (4.50-6.20); RED CELL DISTRIBUTION WIDTH 13.1 % (11.0-15.5); WHITE BLOOD COUNT (AUTO) 6.5 K/uL (4.8-10.8)
[2020-11-13 15:26] LABS: INR 1.11 (0.85-1.15); PROTHROMBIN TIME 11.8 SEC (9.6-11.6)
[2020-11-13 15:27] LABS: PARTIAL THROMBOPLASTIN TIME 34.3 SEC (26.3-35.5)
[2020-11-13] MEDS: 0.9%NACL 1000ML 1,000 ML IV SCH (15:33)
[2020-11-13 16:00] VITALS: BP 139/69
[2020-11-13 17:10] LABS: CREATININE 0.9 mg/dL (0.5-1.5); POTASSIUM 4.9 mmol/L (3.5-5.1)
[2020-11-13] MEDS: ATORVASTATIN 40 MG TABLET PO SCH (19:12)
[2020-11-13 20:05] VITALS: BP 138/66
[2020-11-13 21:53] LABS: APPEARANCE,URINE Clear (CLEAR); BILIRUBIN,URINE Negative (NEGATIVE); COLOR,URINE Yellow (YELLOW); GLUCOSE, URINE (UA) TRACE mg/dL (NEGATIVE); KETONES,URINE Negative (NEGATIVE); LEUKOCYTE ESTERASE ,URINE Negative (NEGATIVE); NITRATE,URINE Negative (NEGATIVE); OCCULT BLOOD,URINE Negative (NEGATIVE); PROTEIN,URINE POS 1+ mg/dL (NEGATIVE); UROBILINOGEN,URINE 0.2 mg/dL (0.2-1.0)
[2020-11-13 22:44] LABS: BACTERIA,URINE None Seen /HPF (None Seen); RBC,URINE None Seen /HPF (0-1); SQUAMOUS EPITHELIAL CELL,UR Rare /HPF (0-2); URIC ACID CRYSTALS,URINE Few /LPF (None Seen); WBC,URINE None Seen /HPF (0-1)
[2020-11-14] VITALS (7 sets, daily range): BP systolic 130–160; BP diastolic 62–91
[2020-11-14] MEDS: 0.9%NACL 1000ML 1,000 ML IV SCH ×3 (01:00→20:26)
[2020-11-14] MEDS: ZYVOX 600 MG TAB PO SCH ×2 (02:38→14:22)
[2020-11-14] MEDS: INSULIN HUMULIN R 100 UNIT/ML 3ML SQ SCH ×4 (05:31→20:20)
[2020-11-14 06:16] LABS: BASOPHILS % (AUTO) 0.4 % (0.0-5.0); EOSINOPHILS % (AUTO) 1.3 % (0.0-8.0); HEMATOCRIT 33.9 % (42-54); LYMPHOCYTES % (AUTO) 19.1 % (21.0-51.0); MEAN CORPUSCULAR HEMOGLOBIN 30.5 pg (27.0-33.0); MEAN CORPUSCULAR HGB CONC 32.2 g/dL (32.0-36.0); NEUTROPHILS % (AUTO) 74.7 % (40.0-77.0); PLATELET COUNT (AUTO) 258 K/uL (130-400); RED BLOOD CELL COUNT(AUTO) 3.57 MIL/uL (4.50-6.20); WHITE BLOOD COUNT (AUTO) 7.4 K/uL (4.8-10.8)
[2020-11-14] MEDS: ACETAMINOPHEN WITH CODEINE 1 TAB TAB PO PRN ×2 (06:18→20:26)
[2020-11-14 06:32] LABS: CREATININE 0.9 mg/dL (0.5-1.5); MAGNESIUM 1.5 mg/dL (1.80-2.40); POTASSIUM 4.1 mmol/L (3.5-5.1)
[2020-11-14] MEDS: MAGNESIUM 2GM PREMIX 50ML 50 ML IV PRN ×2 (06:36→20:21)
[2020-11-14] MEDS: METOPROLOL TARTRATE 50 MG TAB PO SCH ×2 (09:10→20:21)
[2020-11-14] MEDS: CLOPIDOGREL 75MG TAB PO SCH (09:10)
[2020-11-14] MEDS: ASPIRIN 81MG CHEW TAB PO SCH (09:10)
[2020-11-14] MEDS: ZOSYN 3.375GM+NS 50ML 50 ML IV SCH ×2 (09:10→20:21)
[2020-11-14] MEDS: AMLODIPINE 5 MG TAB PO SCH (09:10)
[2020-11-14] MEDS: ATORVASTATIN 40 MG TABLET PO SCH (20:21)
[2020-11-15] VITALS (7 sets, daily range): BP systolic 118–177; BP diastolic 70–106
[2020-11-15] MEDS: ZYVOX 600 MG TAB PO SCH ×2 (01:15→14:47)
[2020-11-15] MEDS: INSULIN HUMULIN R 100 UNIT/ML 3ML SQ SCH ×4 (05:19→21:21)
[2020-11-15 05:44] LABS: HEMATOCRIT 32.4 % (42-54); MEAN CORPUSCULAR HGB CONC 31.8 g/dL (32.0-36.0); MEAN CORPUSCULAR VOLUME 94.5 fL (79-99); RED BLOOD CELL COUNT(AUTO) 3.43 MIL/uL (4.50-6.20); RED CELL DISTRIBUTION WIDTH 13.1 % (11.0-15.5); WHITE BLOOD COUNT (AUTO) 5.8 K/uL (4.8-10.8)
[2020-11-15 06:06] LABS: POTASSIUM 4.2 mmol/L (3.5-5.1)
[2020-11-15 06:46] LABS: INR 1.02 (0.85-1.15); PROTHROMBIN TIME 10.9 SEC (9.6-11.6)
[2020-11-15 06:48] LABS: PARTIAL THROMBOPLASTIN TIME 27.6 SEC (26.3-35.5)
[2020-11-15] MEDS: 0.9%NACL 1000ML 1,000 ML IV SCH ×2 (07:50→17:34)
[2020-11-15] MEDS: ZOSYN 3.375GM+NS 50ML 50 ML IV SCH ×2 (08:45→21:16)
[2020-11-15] MEDS: ASPIRIN 81MG CHEW TAB PO SCH (08:46)
[2020-11-15] MEDS: CLOPIDOGREL 75MG TAB PO SCH (08:46)
[2020-11-15] MEDS: AMLODIPINE 5 MG TAB PO SCH (08:46)
[2020-11-15] MEDS: METOPROLOL TARTRATE 50 MG TAB PO SCH ×2 (08:46→21:16)
[2020-11-15] MEDS ORDERED: ONDANSETRON 4MG INJ ONE (12:43)
[2020-11-15] MEDS ORDERED: GLYCOPYRROLATE 1 MG/5 ML SYRINGE ONE (12:43)
[2020-11-15] MEDS ORDERED: LIDOCAINE PF 100MG/5ML (2%) SYRINGE 5ML ONE (12:43)
[2020-11-15] MEDS ORDERED: DEXAMETHASONE SOD PHOSPHATE 10MG/ML 1ML VIAL ONE (12:43)
[2020-11-15] MEDS ORDERED: FENTANYL CITRATE PF 50 MCG/1 ML 2ML VIAL ONE (12:43)
[2020-11-15] MEDS ORDERED: SUCCINYLCHOLINE CHLORIDE 20 MG/ML 10 ML VIAL ONE (12:43)
[2020-11-15] MEDS ORDERED: MIDAZOLAM HCL 1 MG/ML 2ML VIAL ONE (12:44)
[2020-11-15] MEDS ORDERED: ROCURONIUM 10MG/1ML SYR 10 MG/ML ML ONE (12:44)
[2020-11-15] MEDS ORDERED: NEOSTIGMINE 5MG/5ML SYR IV ONE (12:44)
[2020-11-15] MEDS ORDERED: PROPOFOL 10 MG/ML 20ML VIAL IV ONE (12:44)
[2020-11-15] MEDS ORDERED: 0.9%NACL 10ML VIAL ONE (12:46)
[2020-11-15] MEDS ORDERED: CEFAZOLIN SODIUM 1 GM VIAL IVP PRN (13:00)
[2020-11-15] MEDS ORDERED: PAPAVERINE HCL 30 MG/ML 2ML VIAL ONE (13:12)
[2020-11-15] MEDS ORDERED: CEFAZOLIN SODIUM 1 GM VIAL ONE (13:12)
[2020-11-15] MEDS: ATORVASTATIN 40 MG TABLET PO SCH (21:16)
[2020-11-15] MEDS: ACETAMINOPHEN WITH CODEINE 1 TAB TAB PO PRN (21:26)
[2020-11-16] MEDS: ZYVOX 600 MG TAB PO SCH ×2 (01:55→14:57)
[2020-11-16 04:00] VITALS: BP 132/94
[2020-11-16] MEDS: INSULIN HUMULIN R 100 UNIT/ML 3ML SQ SCH ×4 (05:26→21:42)
[2020-11-16 07:26] LABS: BASOPHILS % (AUTO) 0.3 % (0.0-5.0); HEMATOCRIT 32.8 % (42-54); LYMPHOCYTES % (AUTO) 20.1 % (21.0-51.0); MEAN CORPUSCULAR HEMOGLOBIN 30.2 pg (27.0-33.0); MEAN CORPUSCULAR HGB CONC 32.3 g/dL (32.0-36.0); MEAN CORPUSCULAR VOLUME 93.4 fL (79-99); MONOCYTES % (AUTO) 4.2 % (3.0-13.0); NEUTROPHILS % (AUTO) 74.1 % (40.0-77.0); PLATELET COUNT (AUTO) 178 K/uL (130-400); RED BLOOD CELL COUNT(AUTO) 3.51 MIL/uL (4.50-6.20); RED CELL DISTRIBUTION WIDTH 13.1 % (11.0-15.5)
[2020-11-16 07:38] LABS: CREATININE 0.7 mg/dL (0.5-1.5); MAGNESIUM 1.3 mg/dL (1.80-2.40); POTASSIUM 3.9 mmol/L (3.5-5.1)
[2020-11-16 09:14] VITALS: BP 151/99
[2020-11-16] MEDS: ASPIRIN 81MG CHEW TAB PO SCH (10:55)
[2020-11-16] MEDS: AMLODIPINE 5 MG TAB PO SCH (10:55)
[2020-11-16] MEDS: METOPROLOL TARTRATE 50 MG TAB PO SCH ×2 (10:55→21:39)
[2020-11-16] MEDS: ZOSYN 3.375GM+NS 50ML 50 ML IV SCH ×2 (10:56→21:39)
[2020-11-16] MEDS: CLOPIDOGREL 75MG TAB PO SCH (10:56)
[2020-11-16] MEDS: ACETAMINOPHEN WITH CODEINE 1 TAB TAB PO PRN (11:10)
[2020-11-16 12:31] VITALS: BP 133/73
[2020-11-16] MEDS ORDERED: MAGNESIUM 2GM PREMIX 50ML 50 ML IV PRN (15:15)
[2020-11-16] MEDS: MAGNESIUM 2GM PREMIX 50ML 50 ML IV PRN ×2 (16:51→21:43)
[2020-11-16 17:57] VITALS: BP 161/79
[2020-11-16 19:20] VITALS: BP 149/77
[2020-11-16] MEDS: MAGNESIUM OXIDE 400 MG TABLET PO SCH (21:39)
[2020-11-16] MEDS: ATORVASTATIN 40 MG TABLET PO SCH (21:39)
[2020-11-17 00:01] VITALS: BP 148/59
[2020-11-17] MEDS: ACETAMINOPHEN WITH CODEINE 1 TAB TAB PO PRN (00:02)
[2020-11-17] MEDS ORDERED: KETOROLAC 30MG VIAL (30MG/ML) ONE (00:28)
[2020-11-17] MEDS: ZYVOX 600 MG TAB PO SCH ×2 (01:55→13:16)
[2020-11-17] MEDS: KETOROLAC 15MG/ML VIAL (15MG/ML) IV PRN (01:57)
[2020-11-17 03:46] VITALS: BP 121/70
[2020-11-17 06:22] LABS: HEMATOCRIT 29.2 % (42-54); MEAN CORPUSCULAR HEMOGLOBIN 30.5 pg (27.0-33.0); MEAN CORPUSCULAR HGB CONC 32.9 g/dL (32.0-36.0); MEAN CORPUSCULAR VOLUME 92.7 fL (79-99); PLATELET COUNT (AUTO) 158 K/uL (130-400); RED BLOOD CELL COUNT(AUTO) 3.15 MIL/uL (4.50-6.20); RED CELL DISTRIBUTION WIDTH 12.9 % (11.0-15.5); WHITE BLOOD COUNT (AUTO) 5.4 K/uL (4.8-10.8)
[2020-11-17] MEDS: INSULIN HUMULIN R 100 UNIT/ML 3ML SQ SCH ×4 (06:38→19:38)
[2020-11-17 06:44] LABS: CREATININE 0.9 mg/dL (0.5-1.5); MAGNESIUM 1.8 mg/dL (1.80-2.40)
[2020-11-17 07:11] LABS: EOSINOPHILS % (MANUAL) 2 % (1-6); LYMPHOCYTES % (MANUAL) 28 % (22-44); MAN.DIFF COMMENT-IMPRESSION MANUAL DIFFERENTIAL; MONOCYTES % (MANUAL) 1 % (2-9); PLATELET MORPHOLOGY COMMENT ADEQUATE; SEGMENTED NEUTROPHILS % 69 % (40-70)
[2020-11-17 07:30] VITALS: BP 128/64
[2020-11-17 11:00] VITALS: BP 140/62
[2020-11-17] MEDS: MAGNESIUM OXIDE 400 MG TABLET PO SCH ×2 (11:09→19:33)
[2020-11-17] MEDS: CLOPIDOGREL 75MG TAB PO SCH (11:09)
[2020-11-17] MEDS: AMLODIPINE 5 MG TAB PO SCH (11:09)
[2020-11-17] MEDS: ZOSYN 3.375GM+NS 50ML 50 ML IV SCH ×2 (11:09→19:33)
[2020-11-17] MEDS: ASPIRIN 81MG CHEW TAB PO SCH (11:09)
[2020-11-17] MEDS: METOPROLOL TARTRATE 50 MG TAB PO SCH ×2 (11:10→19:34)
[2020-11-17] MEDS: MAGNESIUM 2GM PREMIX 50ML 50 ML IV PRN (11:24)
[2020-11-17 19:00] VITALS: BP 139/65
[2020-11-17] MEDS: ATORVASTATIN 40 MG TABLET PO SCH (19:34)
[2020-11-18] VITALS (7 sets, daily range): BP systolic 101–163; BP diastolic 61–86
[2020-11-18] MEDS: ZYVOX 600 MG TAB PO SCH ×2 (00:59→13:45)
[2020-11-18] MEDS: KETOROLAC 15MG/ML VIAL (15MG/ML) IV PRN (01:51)
[2020-11-18] MEDS: ACETAMINOPHEN WITH CODEINE 1 TAB TAB PO PRN ×2 (04:00→22:39)
[2020-11-18 04:56] LABS: BASOPHILS % (AUTO) 0.4 % (0.0-5.0); HEMATOCRIT 30.3 % (42-54); LYMPHOCYTES % (AUTO) 21.4 % (21.0-51.0); MEAN CORPUSCULAR HEMOGLOBIN 30.2 pg (27.0-33.0); MEAN CORPUSCULAR HGB CONC 32.3 g/dL (32.0-36.0); MEAN CORPUSCULAR VOLUME 93.5 fL (79-99); PLATELET COUNT (AUTO) 144 K/uL (130-400); RED BLOOD CELL COUNT(AUTO) 3.24 MIL/uL (4.50-6.20); WHITE BLOOD COUNT (AUTO) 5.5 K/uL (4.8-10.8)
[2020-11-18 05:26] LABS: CREATININE 0.9 mg/dL (0.5-1.5); MAGNESIUM 1.8 mg/dL (1.80-2.40); POTASSIUM 4.6 mmol/L (3.5-5.1)
[2020-11-18] MEDS: INSULIN HUMULIN R 100 UNIT/ML 3ML SQ SCH ×4 (05:28→20:27)
[2020-11-18] MEDS: METOPROLOL TARTRATE 50 MG TAB PO SCH ×2 (09:29→20:27)
[2020-11-18] MEDS: MAGNESIUM OXIDE 400 MG TABLET PO SCH ×2 (09:29→20:27)
[2020-11-18] MEDS: CLOPIDOGREL 75MG TAB PO SCH (09:29)
[2020-11-18] MEDS: ZOSYN 3.375GM+NS 50ML 50 ML IV SCH ×2 (09:29→20:26)
[2020-11-18] MEDS: ASPIRIN 81MG CHEW TAB PO SCH (09:29)
[2020-11-18] MEDS: AMLODIPINE 5 MG TAB PO SCH (09:29)
[2020-11-18] MEDS: ATORVASTATIN 40 MG TABLET PO SCH (20:27)
[2020-11-18] MEDS: MAGNESIUM 2GM PREMIX 50ML 50 ML IV PRN (20:28)
[2020-11-18] MEDS ORDERED: KETOROLAC 30MG VIAL (30MG/ML) ONE (20:37)
[2020-11-19] MEDS: ZYVOX 600 MG TAB PO SCH ×2 (00:42→13:45)
[2020-11-19 03:51] VITALS: BP 157/82
[2020-11-19 04:07] LABS: BASOPHILS % (AUTO) 0.6 % (0.0-5.0); HEMATOCRIT 29.1 % (42-54); LYMPHOCYTES % (AUTO) 24.7 % (21.0-51.0); MEAN CORPUSCULAR HEMOGLOBIN 30.5 pg (27.0-33.0); MEAN CORPUSCULAR HGB CONC 32.6 g/dL (32.0-36.0); MEAN CORPUSCULAR VOLUME 93.6 fL (79-99); MONOCYTES % (AUTO) 3.7 % (3.0-13.0); NEUTROPHILS % (AUTO) 67.6 % (40.0-77.0); PLATELET COUNT (AUTO) 131 K/uL (130-400); RED BLOOD CELL COUNT(AUTO) 3.11 MIL/uL (4.50-6.20); WHITE BLOOD COUNT (AUTO) 5.4 K/uL (4.8-10.8)
[2020-11-19 04:18] LABS: CREATININE 0.8 mg/dL (0.5-1.5); MAGNESIUM 1.9 mg/dL (1.80-2.40); POTASSIUM 4.3 mmol/L (3.5-5.1)
[2020-11-19] MEDS: MAGNESIUM 2GM PREMIX 50ML 50 ML IV PRN (05:06)
[2020-11-19] MEDS: INSULIN HUMULIN R 100 UNIT/ML 3ML SQ SCH ×4 (05:47→21:00)
[2020-11-19 08:38] VITALS: BP 153/84
[2020-11-19] MEDS: AMLODIPINE 5 MG TAB PO SCH (10:26)
[2020-11-19] MEDS: ASPIRIN 81MG CHEW TAB PO SCH (10:26)
[2020-11-19] MEDS: METOPROLOL TARTRATE 50 MG TAB PO SCH ×2 (10:26→20:04)
[2020-11-19] MEDS: ZOSYN 3.375GM+NS 50ML 50 ML IV SCH ×2 (10:27→20:04)
[2020-11-19] MEDS: MAGNESIUM OXIDE 400 MG TABLET PO SCH ×2 (10:27→20:03)
[2020-11-19] MEDS: CLOPIDOGREL 75MG TAB PO SCH (10:27)
[2020-11-19 11:43] VITALS: BP 144/69
[2020-11-19 16:59] VITALS: BP 144/58
[2020-11-19] MEDS: ATORVASTATIN 40 MG TABLET PO SCH (20:04)
[2020-11-19] MEDS: KETOROLAC 15MG/ML VIAL (15MG/ML) IV PRN (23:03)
[2020-11-19 23:11] VITALS: BP 160/64
[2020-11-20] VITALS (26 sets, daily range): BP systolic 112–180; BP diastolic 41–86
[2020-11-20] MEDS: ZYVOX 600 MG TAB PO SCH ×3 (01:03→23:05)
[2020-11-20 04:54] LABS: BASOPHILS % (AUTO) 0.6 % (0.0-5.0); EOSINOPHILS % (AUTO) 3.3 % (0.0-8.0); HEMATOCRIT 29.3 % (42-54); LYMPHOCYTES % (AUTO) 24.2 % (21.0-51.0); MEAN CORPUSCULAR HEMOGLOBIN 30.1 pg (27.0-33.0); MEAN CORPUSCULAR HGB CONC 32.4 g/dL (32.0-36.0); MEAN CORPUSCULAR VOLUME 92.7 fL (79-99); MONOCYTES % (AUTO) 3.9 % (3.0-13.0); NEUTROPHILS % (AUTO) 67.6 % (40.0-77.0); PLATELET COUNT (AUTO) 127 K/uL (130-400); RED BLOOD CELL COUNT(AUTO) 3.16 MIL/uL (4.50-6.20); RED CELL DISTRIBUTION WIDTH 12.7 % (11.0-15.5); WHITE BLOOD COUNT (AUTO) 5.4 K/uL (4.8-10.8)
[2020-11-20 05:26] LABS: CREATININE 0.8 mg/dL (0.5-1.5); MAGNESIUM 1.7 mg/dL (1.80-2.40); POTASSIUM 4.7 mmol/L (3.5-5.1)
[2020-11-20] MEDS: INSULIN HUMULIN R 100 UNIT/ML 3ML SQ SCH ×4 (06:42→20:05)
[2020-11-20] MEDS ORDERED: BUPIVACAINE/PF 0.5% 10ML VIAL ONE (07:06)
[2020-11-20] MEDS ORDERED: LIDOCAINE HCL 1% 20 ML VIAL ONE (07:06)
[2020-11-20] MEDS ORDERED: PROPOFOL 1000 MG/100 ML 100 ML IV ONE (07:17)
[2020-11-20] MEDS ORDERED: ONDANSETRON 4MG INJ ONE (08:36)
[2020-11-20] MEDS: ZOSYN 3.375GM+NS 50ML 50 ML IV SCH ×2 (09:00→20:05)
[2020-11-20] MEDS: MAGNESIUM OXIDE 400 MG TABLET PO SCH ×2 (13:21→20:04)
[2020-11-20] MEDS: METOPROLOL TARTRATE 50 MG TAB PO SCH ×2 (13:21→20:04)
[2020-11-20] MEDS: ASPIRIN 81MG CHEW TAB PO SCH (13:22)
[2020-11-20] MEDS: CLOPIDOGREL 75MG TAB PO SCH (13:22)
[2020-11-20] MEDS: AMLODIPINE 5 MG TAB PO SCH (13:22)
[2020-11-20] MEDS ORDERED: HYDROMORPHONE 0.5 MG SYG (0.5MG/0.5ML) ONE (18:51)
[2020-11-20] MEDS: ATORVASTATIN 40 MG TABLET PO SCH (20:05)
[2020-11-20] MEDS: MORPHINE 2 MG SYG IVP PRN ×2 (20:05→23:06)
[2020-11-20] MEDS: MAGNESIUM 2GM PREMIX 50ML 50 ML IV PRN (20:06)
[2020-11-21 00:12] VITALS: BP 134/72
[2020-11-21 04:33] VITALS: BP 129/76
[2020-11-21 05:15] LABS: BASOPHILS % (AUTO) 0.4 % (0.0-5.0); EOSINOPHILS % (AUTO) 2.6 % (0.0-8.0); HEMATOCRIT 30.6 % (42-54); LYMPHOCYTES % (AUTO) 14.7 % (21.0-51.0); MEAN CORPUSCULAR HEMOGLOBIN 30.3 pg (27.0-33.0); MEAN CORPUSCULAR VOLUME 94.7 fL (79-99); MONOCYTES % (AUTO) 2.9 % (3.0-13.0); PLATELET COUNT (AUTO) 118 K/uL (130-400); RED BLOOD CELL COUNT(AUTO) 3.23 MIL/uL (4.50-6.20); RED CELL DISTRIBUTION WIDTH 12.8 % (11.0-15.5); WHITE BLOOD COUNT (AUTO) 8.2 K/uL (4.8-10.8)
[2020-11-21 05:31] LABS: CREATININE 0.8 mg/dL (0.5-1.5); MAGNESIUM 1.7 mg/dL (1.80-2.40); POTASSIUM 4.8 mmol/L (3.5-5.1)
[2020-11-21] MEDS: MAGNESIUM 2GM PREMIX 50ML 50 ML IV PRN (05:41)
[2020-11-21] MEDS: INSULIN HUMULIN R 100 UNIT/ML 3ML SQ SCH ×4 (06:31→21:00)
[2020-11-21] MEDS: MORPHINE 2 MG SYG IVP PRN (06:36)
[2020-11-21 07:30] VITALS: BP 130/66
[2020-11-21] MEDS: ASPIRIN 81MG CHEW TAB PO SCH (09:56)
[2020-11-21] MEDS: METOPROLOL TARTRATE 50 MG TAB PO SCH ×2 (09:57→20:15)
[2020-11-21] MEDS: AMLODIPINE 5 MG TAB PO SCH (09:57)
[2020-11-21] MEDS: CLOPIDOGREL 75MG TAB PO SCH (09:57)
[2020-11-21] MEDS: ZOSYN 3.375GM+NS 50ML 50 ML IV SCH ×2 (09:57→20:15)
[2020-11-21] MEDS: MAGNESIUM OXIDE 400 MG TABLET PO SCH ×2 (09:57→20:15)
[2020-11-21 11:00] VITALS: BP 142/47
[2020-11-21] MEDS: ZYVOX 600 MG TAB PO SCH (14:19)
[2020-11-21 16:00] VITALS: BP 146/73
[2020-11-21] MEDS: ATORVASTATIN 40 MG TABLET PO SCH (20:15)
[2020-11-21 20:28] VITALS: BP 159/73
[2020-11-21] MEDS: HYDROMORPHONE 0.5 MG SYG (0.5MG/0.5ML) IVP PRN (20:31)
[2020-11-22] VITALS (7 sets, daily range): BP systolic 121–187; BP diastolic 43–80
[2020-11-22] MEDS: ZYVOX 600 MG TAB PO SCH (00:58)
[2020-11-22] MEDS: HYDROMORPHONE 0.5 MG SYG (0.5MG/0.5ML) IVP PRN (01:03)
[2020-11-22] MEDS: INSULIN HUMULIN R 100 UNIT/ML 3ML SQ SCH ×4 (06:02→19:45)
[2020-11-22] MEDS: ZOSYN 3.375GM+NS 50ML 50 ML IV SCH (09:00)
[2020-11-22] MEDS: CLOPIDOGREL 75MG TAB PO SCH (11:07)
[2020-11-22] MEDS: ASPIRIN 81MG CHEW TAB PO SCH (11:08)
[2020-11-22] MEDS: MAGNESIUM OXIDE 400 MG TABLET PO SCH ×2 (11:08→20:07)
[2020-11-22] MEDS: METOPROLOL TARTRATE 50 MG TAB PO SCH ×2 (11:08→20:07)
[2020-11-22] MEDS: AMLODIPINE 5 MG TAB PO SCH (11:08)
[2020-11-22] MEDS: ATORVASTATIN 40 MG TABLET PO SCH (20:07)
[2020-11-22] MEDS: MORPHINE 2 MG SYG IVP PRN (20:08)
[2020-11-22] MEDS: ENOXAPARIN SODIUM 80 MG/0.8 ML SQ SCH (21:00)
[2020-11-23] MEDS: ZYVOX 600 MG TAB PO SCH (00:10)
[2020-11-23 03:57] LABS: BASOPHILS % (AUTO) 0.6 % (0.0-5.0); HEMATOCRIT 27.2 % (42-54); LYMPHOCYTES % (AUTO) 22.1 % (21.0-51.0); MEAN CORPUSCULAR HEMOGLOBIN 30.5 pg (27.0-33.0); MEAN CORPUSCULAR HGB CONC 33.1 g/dL (32.0-36.0); MEAN CORPUSCULAR VOLUME 92.2 fL (79-99); MONOCYTES % (AUTO) 3.1 % (3.0-13.0); RED BLOOD CELL COUNT(AUTO) 2.95 MIL/uL (4.50-6.20); RED CELL DISTRIBUTION WIDTH 12.7 % (11.0-15.5); WHITE BLOOD COUNT (AUTO) 5.4 K/uL (4.8-10.8)
[2020-11-23 04:05] LABS: CREATININE 0.7 mg/dL (0.5-1.5); MAGNESIUM 1.4 mg/dL (1.80-2.40); POTASSIUM 4.3 mmol/L (3.5-5.1)
[2020-11-23 04:46] VITALS: BP 151/73
[2020-11-23 04:47] LABS: PLATELET COUNT (AUTO) 108 K/uL (130-400)
[2020-11-23] MEDS: INSULIN HUMULIN R 100 UNIT/ML 3ML SQ SCH ×4 (07:30→21:00)
[2020-11-23 08:01] VITALS: BP 151/67
[2020-11-23] MEDS: ENOXAPARIN SODIUM 80 MG/0.8 ML SQ SCH ×2 (09:00→21:00)
[2020-11-23] MEDS: MAGNESIUM OXIDE 400 MG TABLET PO SCH ×2 (09:01→20:29)
[2020-11-23] MEDS: CLOPIDOGREL 75MG TAB PO SCH (09:02)
[2020-11-23] MEDS: ASPIRIN 81MG CHEW TAB PO SCH (09:02)
[2020-11-23] MEDS: METOPROLOL TARTRATE 50 MG TAB PO SCH ×2 (09:02→20:29)
[2020-11-23] MEDS: AMLODIPINE 5 MG TAB PO SCH (09:02)
[2020-11-23] MEDS: MAGNESIUM 2GM PREMIX 50ML 50 ML IV PRN (09:07)
[2020-11-23 11:36] VITALS: BP 131/67
[2020-11-23] MEDS: FUROSEMIDE 40 MG TABLET PO SCH (13:31)
[2020-11-23] MEDS: SULFAMETHOX-TMP DS 800/160 TAB PO SCH ×2 (15:09→20:28)
[2020-11-23] MEDS: ACETAMINOPHEN WITH CODEINE 1 TAB TAB PO PRN ×2 (15:10→20:30)
[2020-11-23 16:05] VITALS: BP 128/66
[2020-11-23 20:13] VITALS: BP 128/83
[2020-11-23] MEDS: ATORVASTATIN 40 MG TABLET PO SCH (20:29)
[2020-11-23 23:20] VITALS: BP 139/66
[2020-11-24] MEDS: ACETAMINOPHEN WITH CODEINE 1 TAB TAB PO PRN ×3 (01:18→20:27)
[2020-11-24 05:27] VITALS: BP 151/93
[2020-11-24 05:37] LABS: BASOPHILS % (AUTO) 0.4 % (0.0-5.0); EOSINOPHILS % (AUTO) 3.4 % (0.0-8.0); HEMATOCRIT 26.1 % (42-54); LYMPHOCYTES % (AUTO) 27.6 % (21.0-51.0); MEAN CORPUSCULAR HEMOGLOBIN 30.6 pg (27.0-33.0); MEAN CORPUSCULAR HGB CONC 33.3 g/dL (32.0-36.0); MEAN CORPUSCULAR VOLUME 91.9 fL (79-99); NEUTROPHILS % (AUTO) 65.4 % (40.0-77.0); PLATELET COUNT (AUTO) 83 K/uL (130-400); RED BLOOD CELL COUNT(AUTO) 2.84 MIL/uL (4.50-6.20); RED CELL DISTRIBUTION WIDTH 12.6 % (11.0-15.5); WHITE BLOOD COUNT (AUTO) 4.7 K/uL (4.8-10.8)
[2020-11-24 05:57] LABS: CREATININE 0.8 mg/dL (0.5-1.5); MAGNESIUM 1.4 mg/dL (1.80-2.40)
[2020-11-24] MEDS: INSULIN HUMULIN R 100 UNIT/ML 3ML SQ SCH ×4 (06:40→20:15)
[2020-11-24 07:30] VITALS: BP 155/75
[2020-11-24] MEDS: FUROSEMIDE 40 MG TABLET PO SCH (08:25)
[2020-11-24] MEDS: MAGNESIUM OXIDE 400 MG TABLET PO SCH ×2 (08:25→20:17)
[2020-11-24] MEDS: SULFAMETHOX-TMP DS 800/160 TAB PO SCH ×2 (08:25→20:17)
[2020-11-24] MEDS: ASPIRIN 81MG CHEW TAB PO SCH (08:26)
[2020-11-24] MEDS: CLOPIDOGREL 75MG TAB PO SCH (08:26)
[2020-11-24] MEDS: AMLODIPINE 5 MG TAB PO SCH (08:26)
[2020-11-24] MEDS: METOPROLOL TARTRATE 50 MG TAB PO SCH ×2 (08:26→20:17)
[2020-11-24 11:00] VITALS: BP 110/42
[2020-11-24 12:38] LABS: BASOPHILS % (AUTO) 0.7 % (0.0-5.0); EOSINOPHILS % (AUTO) 2.2 % (0.0-8.0); HEMATOCRIT 26.3 % (42-54); LYMPHOCYTES % (AUTO) 22.5 % (21.0-51.0); MEAN CORPUSCULAR HEMOGLOBIN 30.9 pg (27.0-33.0); MEAN CORPUSCULAR HGB CONC 33.8 g/dL (32.0-36.0); MEAN CORPUSCULAR VOLUME 91.3 fL (79-99); MONOCYTES % (AUTO) 4.2 % (3.0-13.0); NEUTROPHILS % (AUTO) 70.2 % (40.0-77.0); PLATELET COUNT (AUTO) 81 K/uL (130-400); RED BLOOD CELL COUNT(AUTO) 2.88 MIL/uL (4.50-6.20); RED CELL DISTRIBUTION WIDTH 12.8 % (11.0-15.5); WHITE BLOOD COUNT (AUTO) 4.5 K/uL (4.8-10.8)
[2020-11-24] MEDS: MAGNESIUM 2GM PREMIX 50ML 50 ML IV PRN ×2 (13:35→20:16)
[2020-11-24] MEDS: AMOXICILLIN 500 MG CAPSULE PO SCH ×2 (14:18→20:17)
[2020-11-24 16:00] VITALS: BP 135/90
[2020-11-24] MEDS ORDERED: COMPOUND IV MISC 1 EACH IVSOLN MISC PRN (16:45)
[2020-11-24] MEDS: IRON SUCROSE COMPLEX 300 MG in 0.9%NACL 50ML 50 ML IV SCH (17:01)
[2020-11-24] MEDS: ATORVASTATIN 40 MG TABLET PO SCH (20:17)
[2020-11-24 21:44] VITALS: BP 166/72
[2020-11-24 23:38] VITALS: BP 131/74
[2020-11-25 04:37] VITALS: BP 158/87
[2020-11-25] MEDS: INSULIN HUMULIN R 100 UNIT/ML 3ML SQ SCH ×4 (05:46→20:42)
[2020-11-25] MEDS: AMOXICILLIN 500 MG CAPSULE PO SCH ×3 (05:47→20:14)
[2020-11-25 06:26] LABS: BASOPHILS % (AUTO) 0.5 % (0.0-5.0); EOSINOPHILS % (AUTO) 2.9 % (0.0-8.0); HEMATOCRIT 25.4 % (42-54); LYMPHOCYTES % (AUTO) 25.4 % (21.0-51.0); MEAN CORPUSCULAR HEMOGLOBIN 29.8 pg (27.0-33.0); MEAN CORPUSCULAR HGB CONC 32.3 g/dL (32.0-36.0); MEAN CORPUSCULAR VOLUME 92.4 fL (79-99); MONOCYTES % (AUTO) 4.8 % (3.0-13.0); NEUTROPHILS % (AUTO) 66.1 % (40.0-77.0); PLATELET COUNT (AUTO) 82 K/uL (130-400); RED BLOOD CELL COUNT(AUTO) 2.75 MIL/uL (4.50-6.20); RED CELL DISTRIBUTION WIDTH 12.8 % (11.0-15.5); WHITE BLOOD COUNT (AUTO) 3.8 K/uL (4.8-10.8)
[2020-11-25 06:39] LABS: CREATININE 0.8 mg/dL (0.5-1.5); MAGNESIUM 1.5 mg/dL (1.80-2.40); POTASSIUM 4.2 mmol/L (3.5-5.1)
[2020-11-25 08:00] VITALS: BP_SYST 109; BP_SYST 162; BP_DIAS 62; BP_DIAS 68
[2020-11-25] MEDS: AMLODIPINE 5 MG TAB PO SCH (10:30)
[2020-11-25] MEDS: ASPIRIN 81MG CHEW TAB PO SCH (10:30)
[2020-11-25] MEDS: MAGNESIUM OXIDE 400 MG TABLET PO SCH ×2 (10:30→20:14)
[2020-11-25] MEDS: IRON SUCROSE COMPLEX 300 MG in 0.9%NACL 50ML 50 ML IV SCH (10:30)
[2020-11-25] MEDS: CLOPIDOGREL 75MG TAB PO SCH (10:31)
[2020-11-25] MEDS: FUROSEMIDE 40 MG TABLET PO SCH (10:31)
[2020-11-25] MEDS: METOPROLOL TARTRATE 50 MG TAB PO SCH ×2 (10:32→20:14)
[2020-11-25] MEDS: SULFAMETHOX-TMP DS 800/160 TAB PO SCH ×2 (10:32→20:14)
[2020-11-25 11:00] VITALS: BP 145/71
[2020-11-25 16:00] VITALS: BP 148/83
[2020-11-25 19:00] VITALS: BP 140/67
[2020-11-25] MEDS: ATORVASTATIN 40 MG TABLET PO SCH (20:14)
[2020-11-26] VITALS: BP 133/53
[2020-11-26 04:00] VITALS: BP 146/51
[2020-11-26] MEDS: AMOXICILLIN 500 MG CAPSULE PO SCH ×3 (04:25→23:41)
[2020-11-26] MEDS: INSULIN HUMULIN R 100 UNIT/ML 3ML SQ SCH ×4 (05:34→19:58)
[2020-11-26 05:48] LABS: BASOPHILS % (AUTO) 0.5 % (0.0-5.0); EOSINOPHILS % (AUTO) 3.8 % (0.0-8.0); HEMATOCRIT 25.6 % (42-54); LYMPHOCYTES % (AUTO) 22.8 % (21.0-51.0); MEAN CORPUSCULAR HEMOGLOBIN 29.8 pg (27.0-33.0); MEAN CORPUSCULAR HGB CONC 32.8 g/dL (32.0-36.0); MEAN CORPUSCULAR VOLUME 90.8 fL (79-99); MONOCYTES % (AUTO) 4.3 % (3.0-13.0); NEUTROPHILS % (AUTO) 68.3 % (40.0-77.0); PLATELET COUNT (AUTO) 86 K/uL (130-400); RED BLOOD CELL COUNT(AUTO) 2.82 MIL/uL (4.50-6.20); RED CELL DISTRIBUTION WIDTH 12.9 % (11.0-15.5)
[2020-11-26 06:38] LABS: CREATININE 0.9 mg/dL (0.5-1.5); MAGNESIUM 1.7 mg/dL (1.80-2.40); POTASSIUM 4.5 mmol/L (3.5-5.1)
[2020-11-26] MEDS: MAGNESIUM 2GM PREMIX 50ML 50 ML IV PRN ×2 (06:45→17:14)
[2020-11-26 08:00] VITALS: BP 147/57
[2020-11-26] MEDS: ASPIRIN 81MG CHEW TAB PO SCH (09:23)
[2020-11-26] MEDS: METOPROLOL TARTRATE 50 MG TAB PO SCH ×2 (09:23→19:46)
[2020-11-26] MEDS: MAGNESIUM OXIDE 400 MG TABLET PO SCH ×2 (09:25→19:46)
[2020-11-26] MEDS: SULFAMETHOX-TMP DS 800/160 TAB PO SCH ×2 (09:26→19:46)
[2020-11-26] MEDS: CLOPIDOGREL 75MG TAB PO SCH (09:26)
[2020-11-26] MEDS: AMLODIPINE 5 MG TAB PO SCH (09:26)
[2020-11-26] MEDS: FUROSEMIDE 40 MG TABLET PO SCH (09:27)
[2020-11-26 12:00] VITALS: BP 137/47
[2020-11-26 16:00] VITALS: BP 137/53
[2020-11-26] MEDS ORDERED: RENAL DOSE IV SCH (18:15)
[2020-11-26] MEDS: ATORVASTATIN 40 MG TABLET PO SCH (19:46)
[2020-11-26] MEDS: ENOXAPARIN SODIUM 80 MG/0.8 ML SQ SCH (19:47)
[2020-11-26 20:00] VITALS: BP 130/64
[2020-11-27] VITALS (7 sets, daily range): BP systolic 125–165; BP diastolic 48–89
[2020-11-27] MEDS: AMOXICILLIN 500 MG CAPSULE PO SCH ×3 (05:21→21:08)
[2020-11-27] MEDS: INSULIN HUMULIN R 100 UNIT/ML 3ML SQ SCH ×4 (06:36→21:09)
[2020-11-27 07:08] LABS: BASOPHILS % (AUTO) 0.5 % (0.0-5.0); EOSINOPHILS % (AUTO) 3.9 % (0.0-8.0); HEMATOCRIT 26.3 % (42-54); LYMPHOCYTES % (AUTO) 31.8 % (21.0-51.0); MEAN CORPUSCULAR HEMOGLOBIN 29.9 pg (27.0-33.0); MEAN CORPUSCULAR HGB CONC 32.3 g/dL (32.0-36.0); MEAN CORPUSCULAR VOLUME 92.6 fL (79-99); MONOCYTES % (AUTO) 7.9 % (3.0-13.0); NEUTROPHILS % (AUTO) 55.4 % (40.0-77.0); PLATELET COUNT (AUTO) 81 K/uL (130-400); RED BLOOD CELL COUNT(AUTO) 2.84 MIL/uL (4.50-6.20); RED CELL DISTRIBUTION WIDTH 12.7 % (11.0-15.5); WHITE BLOOD COUNT (AUTO) 4.1 K/uL (4.8-10.8)
[2020-11-27 07:38] LABS: CREATININE 0.8 mg/dL (0.5-1.5); MAGNESIUM 1.7 mg/dL (1.80-2.40); POTASSIUM 4.4 mmol/L (3.5-5.1)
[2020-11-27] MEDS: AMLODIPINE 5 MG TAB PO SCH (08:47)
[2020-11-27] MEDS: METOPROLOL TARTRATE 50 MG TAB PO SCH ×2 (08:48→20:53)
[2020-11-27] MEDS: MAGNESIUM OXIDE 400 MG TABLET PO SCH ×2 (08:48→20:53)
[2020-11-27] MEDS: ASPIRIN 81MG CHEW TAB PO SCH (08:50)
[2020-11-27] MEDS: SULFAMETHOX-TMP DS 800/160 TAB PO SCH ×2 (08:50→20:52)
[2020-11-27] MEDS: CLOPIDOGREL 75MG TAB PO SCH (08:50)
[2020-11-27] MEDS: FUROSEMIDE 40 MG TABLET PO SCH (08:56)
[2020-11-27] MEDS: ENOXAPARIN SODIUM 80 MG/0.8 ML SQ SCH ×2 (08:57→20:55)
[2020-11-27] MEDS: ACETAMINOPHEN WITH CODEINE 1 TAB TAB PO PRN (17:15)
[2020-11-27] MEDS: ATORVASTATIN 40 MG TABLET PO SCH (20:53)
[2020-11-28] MEDS: ACETAMINOPHEN WITH CODEINE 1 TAB TAB PO PRN ×3 (03:36→22:29)
[2020-11-28 03:48] VITALS: BP 146/76
[2020-11-28] MEDS: AMOXICILLIN 500 MG CAPSULE PO SCH ×3 (05:32→22:23)
[2020-11-28] MEDS: INSULIN HUMULIN R 100 UNIT/ML 3ML SQ SCH ×4 (06:26→21:00)
[2020-11-28 06:46] LABS: BASOPHILS % (AUTO) 0.4 % (0.0-5.0); EOSINOPHILS % (AUTO) 3.3 % (0.0-8.0); LYMPHOCYTES % (AUTO) 32.5 % (21.0-51.0); MEAN CORPUSCULAR HEMOGLOBIN 29.8 pg (27.0-33.0); MEAN CORPUSCULAR HGB CONC 32.5 g/dL (32.0-36.0); MEAN CORPUSCULAR VOLUME 91.6 fL (79-99); MONOCYTES % (AUTO) 10.8 % (3.0-13.0); NEUTROPHILS % (AUTO) 52.1 % (40.0-77.0); PLATELET COUNT (AUTO) 77 K/uL (130-400); RED BLOOD CELL COUNT(AUTO) 2.62 MIL/uL (4.50-6.20); RED CELL DISTRIBUTION WIDTH 12.8 % (11.0-15.5); WHITE BLOOD COUNT (AUTO) 4.5 K/uL (4.8-10.8)
[2020-11-28 07:03] LABS: CREATININE 0.9 mg/dL (0.5-1.5); MAGNESIUM 1.4 mg/dL (1.80-2.40); POTASSIUM 4.5 mmol/L (3.5-5.1)
[2020-11-28 08:01] VITALS: BP 130/70
[2020-11-28] MEDS: ENOXAPARIN SODIUM 80 MG/0.8 ML SQ SCH (09:00)
[2020-11-28] MEDS: AMLODIPINE 5 MG TAB PO SCH (09:45)
[2020-11-28] MEDS: ASPIRIN 81MG CHEW TAB PO SCH (09:45)
[2020-11-28] MEDS: CLOPIDOGREL 75MG TAB PO SCH (09:45)
[2020-11-28] MEDS: SULFAMETHOX-TMP DS 800/160 TAB PO SCH ×2 (09:46→22:24)
[2020-11-28] MEDS: METOPROLOL TARTRATE 50 MG TAB PO SCH ×2 (09:46→22:24)
[2020-11-28] MEDS: MAGNESIUM OXIDE 400 MG TABLET PO SCH ×2 (09:46→22:24)
[2020-11-28] MEDS: FUROSEMIDE 40 MG TABLET PO SCH (09:46)
[2020-11-28 11:34] VITALS: BP 123/53
[2020-11-28 16:00] VITALS: BP 146/59
[2020-11-28 20:00] VITALS: BP 130/81
[2020-11-28] MEDS: ATORVASTATIN 40 MG TABLET PO SCH (22:24)
[2020-11-29] VITALS (7 sets, daily range): BP systolic 97–151; BP diastolic 54–85
[2020-11-29] MEDS: ACETAMINOPHEN WITH CODEINE 1 TAB TAB PO PRN ×2 (03:51→21:08)
[2020-11-29] MEDS: AMOXICILLIN 500 MG CAPSULE PO SCH ×3 (05:11→22:50)
[2020-11-29] MEDS: INSULIN HUMULIN R 100 UNIT/ML 3ML SQ SCH ×4 (05:47→21:13)
[2020-11-29 07:11] LABS: BASOPHILS % (AUTO) 0.8 % (0.0-5.0); EOSINOPHILS % (AUTO) 4.3 % (0.0-8.0); HEMATOCRIT 24.6 % (42-54); LYMPHOCYTES % (AUTO) 28.3 % (21.0-51.0); MEAN CORPUSCULAR HEMOGLOBIN 30.2 pg (27.0-33.0); MEAN CORPUSCULAR HGB CONC 32.9 g/dL (32.0-36.0); MEAN CORPUSCULAR VOLUME 91.8 fL (79-99); MONOCYTES % (AUTO) 11.9 % (3.0-13.0); PLATELET COUNT (AUTO) 107 K/uL (130-400); RED BLOOD CELL COUNT(AUTO) 2.68 MIL/uL (4.50-6.20); RED CELL DISTRIBUTION WIDTH 13.1 % (11.0-15.5); WHITE BLOOD COUNT (AUTO) 4.9 K/uL (4.8-10.8)
[2020-11-29 07:18] LABS: CREATININE 0.9 mg/dL (0.5-1.5); POTASSIUM 5.4 mmol/L (3.5-5.1)
[2020-11-29] MEDS: CLOPIDOGREL 75MG TAB PO SCH (10:15)
[2020-11-29] MEDS: SULFAMETHOX-TMP DS 800/160 TAB PO SCH ×2 (10:15→21:02)
[2020-11-29] MEDS: FUROSEMIDE 40 MG TABLET PO SCH (10:15)
[2020-11-29] MEDS: ASPIRIN 81MG CHEW TAB PO SCH (10:16)
[2020-11-29] MEDS: MAGNESIUM OXIDE 400 MG TABLET PO SCH ×2 (10:16→21:02)
[2020-11-29] MEDS: AMLODIPINE 5 MG TAB PO SCH (10:16)
[2020-11-29] MEDS: METOPROLOL TARTRATE 50 MG TAB PO SCH ×2 (10:16→21:04)
[2020-11-29 12:33] LABS: MAGNESIUM 1.5 mg/dL (1.80-2.40); POTASSIUM 4.4 mmol/L (3.5-5.1)
[2020-11-29] MEDS: ATORVASTATIN 40 MG TABLET PO SCH (21:02)
[2020-11-30 04:39] LABS: MAGNESIUM 1.5 mg/dL (1.80-2.40); POTASSIUM 4.9 mmol/L (3.5-5.1)
[2020-11-30 05:11] VITALS: BP 149/67
[2020-11-30] MEDS: AMOXICILLIN 500 MG CAPSULE PO SCH ×3 (05:50→20:58)
[2020-11-30] MEDS: MAGNESIUM 2GM PREMIX 50ML 50 ML IV PRN (05:51)
[2020-11-30] MEDS: INSULIN HUMULIN R 100 UNIT/ML 3ML SQ SCH ×2 (05:57→11:30)
[2020-11-30 08:00] VITALS: BP 121/60
[2020-11-30] MEDS: ASPIRIN 81MG CHEW TAB PO SCH (09:20)
[2020-11-30] MEDS: FUROSEMIDE 40 MG TABLET PO SCH (09:25)
[2020-11-30] MEDS: MAGNESIUM OXIDE 400 MG TABLET PO SCH ×2 (09:25→20:58)
[2020-11-30] MEDS: CLOPIDOGREL 75MG TAB PO SCH (09:25)
[2020-11-30] MEDS: METOPROLOL TARTRATE 50 MG TAB PO SCH ×2 (09:25→20:59)
[2020-11-30] MEDS: SULFAMETHOX-TMP DS 800/160 TAB PO SCH ×2 (09:25→20:58)
[2020-11-30] MEDS: AMLODIPINE 5 MG TAB PO SCH (09:25)
[2020-11-30 12:00] VITALS: BP_SYST 108; BP_DIAS 47; BP_DIAS 74
[2020-11-30 16:43] VITALS: BP 127/66
[2020-11-30 20:00] VITALS: BP 136/59
[2020-11-30] MEDS: ATORVASTATIN 40 MG TABLET PO SCH (20:58)
[2021-03-09] MEDS ORDERED: ACET325T51 PO (02:24)
[2021-03-09] MEDS ORDERED: LIDO5CRE7 TP (02:24)
[2021-03-09] MEDS ORDERED: INSU100I21 SQ (02:24)
[2021-03-09] MEDS ORDERED: TRAZ-185 PO (02:24)
[2021-03-09] MEDS ORDERED: NEOM28.36 TP (02:24)
[2021-03-09] MEDS ORDERED: LISI40TA9 PO (02:24)
[2021-03-09] MEDS ORDERED: GABA-529 PO (02:24)
[2021-03-09] MEDS ORDERED: ACET1TAB25 PO (02:24)
[2021-03-09] MEDS ORDERED: NICO-776 TD (02:24)
[2021-03-09] MEDS ORDERED: FURO20TA4 PO (02:24)
[2021-03-09] MEDS ORDERED: SILV20CR11 TP (02:24)
[2021-03-09] MEDS ORDERED: VITS42.53 TP (02:24)
[2021-03-09] MEDS ORDERED: FAMO20TA8 PO (02:24)
[2021-03-09] MEDS ORDERED: ACET-2247 PO (02:24)
[2021-04-18] MEDS ORDERED: LISI20TA24 PO (03:21)
[2021-04-18] MEDS ORDERED: SIMV10TA97 PO (03:22)
[2021-04-18] MEDS ORDERED: LACT10SO9 PO (03:24)
[2021-04-18] MEDS ORDERED: ACET-2123 PO (03:26)
== END 2020-11-30 21:10 | DRG 475 ==
LOC: EDH 15:34 → EDHIP 15:35 → 3CH 11-09 03:04
PROVIDERS: ADMIT Hospitalist; ATTEND Hospitalist
PROC: 0Y6M0ZC Detachment at Right Foot, Partial 3rd Ray, Open Approach (ICD-10-PCS; 2020-11-20)
PROC: 0Y6M0ZB Detachment at Right Foot, Partial 2nd Ray, Open Approach (ICD-10-PCS; 2020-11-20)
PROC: 0Y6M0Z9 Detachment at Right Foot, Partial 1st Ray, Open Approach (ICD-10-PCS; 2020-11-20)
PROC: 0QBL0ZZ Excision of Right Tarsal, Open Approach (ICD-10-PCS; 2020-11-20)
PROC: 0Y6M0ZF Detachment at Right Foot, Partial 5th Ray, Open Approach (ICD-10-PCS; principal; 2020-11-20 07:49)
PROC: 0Y6M0ZD Detachment at Right Foot, Partial 4th Ray, Open Approach (ICD-10-PCS; 2020-11-20 07:49)
DX: T87.43 Infection of amputation stump, right lower extremity (principal); E11.52 Type 2 diabetes mellitus with diabetic peripheral angiopathy with gangrene; I48.20 Chronic atrial fibrillation, unspecified; N17.9 Acute kidney failure, unspecified; L03.90 Cellulitis, unspecified; M86.8X7 Other osteomyelitis, ankle and foot; I99.8 Other disorder of circulatory system; Z79.01 Long term (current) use of anticoagulants; N18.30 Chronic kidney disease, stage 3 unspecified; L97.519 Non-pressure chronic ulcer of other part of right foot with unspecified severity; L97.529 Non-pressure chronic ulcer of other part of left foot with unspecified severity; D69.6 Thrombocytopenia, unspecified; E11.22 Type 2 diabetes mellitus with diabetic chronic kidney disease; E11.621 Type 2 diabetes mellitus with foot ulcer; E11.69 Type 2 diabetes mellitus with other specified complication; E66.9 Obesity, unspecified; E78.00 Pure hypercholesterolemia, unspecified; E78.5 Hyperlipidemia, unspecified; E83.42 Hypomagnesemia; E87.5 Hyperkalemia; G89.29 Other chronic pain; I12.9 Hypertensive chronic kidney disease with stage 1 through stage 4 chronic kidney disease, or unspecified chronic kidney disease; Y83.5 Amputation of limb(s) as the cause of abnormal reaction of the patient, or of later complication, without mention of misadventure at the time of the procedure; I25.10 Atherosclerotic heart disease of native coronary artery without angina pectoris; F17.200 Nicotine dependence, unspecified, uncomplicated; R53.81 Other malaise; B95.2 Enterococcus as the cause of diseases classified elsewhere; Z82.49 Family history of ischemic heart disease and other diseases of the circulatory system; Z95.5 Presence of coronary angioplasty implant and graft; Z68.23 Body mass index [BMI] 23.0-23.9, adult; Z20.822 Contact with and (suspected) exposure to COVID-19
CPT/HCPCS: 36415; 76770; 80048; 80053; 81001; 81003; 82570; 82728; 82948; 83540; 83550; 83735; 83880; 84100; 84132; 84156; 84300; 84550; 85025; 85027; 85610; 85730; 86850; 86900; 86901; 87070; 87076; 87077; 87186; 87205; 87426; 88307; 88311; 93926; 93971; 97039; G0378; J0330; J0690; J1100; J1170; J1644; J1650; J1756; J1815; J1885; J2001; J2250; J2405; J2440; J2543; J2704; J2710; J3010; J3370; J3475; J3490; J7030; J7050

== ENCOUNTER 2021-01-19 15:08 | Inpatient (IN) | payer MEDICARE, OTHER ==
[~2021-01-19] VITALS: Ht 180.3 cm; Wt 88.0 kg
[~2021-01-19 15:08] MED LIST changes: -CLOP75TA14 PO
[2021-01-19 15:38] LABS: BASOPHILS % (AUTO) 0.2 % (0.0-5.0); EOSINOPHILS % (AUTO) 1.5 % (0.0-8.0); HEMATOCRIT 36.4 % (42-54); LYMPHOCYTES % (AUTO) 0.6 % (21.0-51.0); MEAN CORPUSCULAR HEMOGLOBIN 29.7 pg (27.0-33.0); MEAN CORPUSCULAR HGB CONC 31.9 g/dL (32.0-36.0); MEAN CORPUSCULAR VOLUME 93.1 fL (79-99); MONOCYTES % (AUTO) 1.9 % (3.0-13.0); NEUTROPHILS % (AUTO) 95.1 % (40.0-77.0); PLATELET COUNT (AUTO) 136 K/uL (130-400); RED BLOOD CELL COUNT(AUTO) 3.91 MIL/uL (4.50-6.20); RED CELL DISTRIBUTION WIDTH 17.2 % (11.0-15.5); WHITE BLOOD COUNT (AUTO) 11.4 K/uL (4.8-10.8)
[2021-01-19] MEDS ORDERED: DILTIAZEM 125 MG/25 ML INJ IV ONE (15:40)
[2021-01-19] MEDS ORDERED: 0.9%NACL 100ML 100 ML IV ONE (15:41)
[2021-01-19 15:52] LABS: INR 1.76 (0.85-1.15); PROTHROMBIN TIME 18.2 SEC (9.6-11.6)
[2021-01-19 15:54] LABS: PARTIAL THROMBOPLASTIN TIME 36.1 SEC (26.3-35.5)
[2021-01-19 16:04] LABS: ALBUMIN 2.7 g/dL (3.5-5.0); BILIRUBIN,TOTAL 1.6 mg/dL (0.2-1.0); CREATININE 1.3 mg/dL (0.5-1.5); TOTAL PROTEIN, SERUM 6.1 g/dL (6.0-8.3)
[2021-01-19 16:35] LABS: ABG BASE EXCESS -0.1 mmol/L (-2.0-3.0); ABG HCO3 22.2 mmol/L (21.0-28.0); ABG OXYGEN SATURATION 99.9 % (95.0-99.0); ABG PCO2 30 mmHg (35-48)
[2021-01-19] MEDS ORDERED: FUROSEMIDE 40MG VIAL ONE (16:42)
[2021-01-19] MEDS ORDERED: POTASSIUM BICARB/CIT AC 25 MEQ TABLET.EFF ONE (16:48)
[2021-01-19] MEDS ORDERED: DILTIAZEM 50MG VIAL IV ONE (17:06)
[2021-01-19 17:54] LABS: APPEARANCE,URINE TURBID (CLEAR); BILIRUBIN,URINE LARGE (NEGATIVE); COLOR,URINE BROWN (YELLOW); GLUCOSE, URINE (UA) NEGATIVE (NEGATIVE); KETONES,URINE 15 mg/dL (NEGATIVE); LEUKOCYTE ESTERASE ,URINE MODERATE (NEGATIVE); NITRATE,URINE POSITIVE (NEGATIVE); OCCULT BLOOD,URINE LARGE (NEGATIVE); PROTEIN,URINE >=300 mg/dL (NEGATIVE)
[2021-01-19 18:02] LABS: BACTERIA,URINE Moderate /HPF (None Seen); MUCUS,URINE Few LPF (None Seen); RBC,URINE >100 /HPF (0-1); SQUAMOUS EPITHELIAL CELL,UR 0-2 /HPF (0-2)
[2021-01-19] MEDS ORDERED: MAGNESIUM 2GM PREMIX 50ML 50 ML IV ONE (20:04)
[2021-01-19] MEDS ORDERED: ONDANSETRON 4MG INJ IV PRN (20:15)
[2021-01-19] MEDS ORDERED: ACETAMINOPHEN 325 MG TAB PO PRN (20:15)
[2021-01-19] MEDS: FUROSEMIDE 20MG VIAL IV SCH (20:30)
[2021-01-19 20:43] LABS: HEMOGLOBIN A1C 6.7 % (4.0-6.0)
[2021-01-19] MEDS: INSULIN GLARGINE 100 UNITS/ML 10 ML VIAL SQ SCH (21:00)
[2021-01-19] MEDS: INSULIN HUMULIN R 100 UNIT/ML 3ML SQ SCH (21:00)
[2021-01-19] MEDS ORDERED: METOPROLOL TARTRATE 50 MG TAB PO SCH (21:00)
[2021-01-19] MEDS ORDERED: FAMOTIDINE 20MG VIAL IV ONE (22:26)
[2021-01-19] MEDS ORDERED: ATORVASTATIN 40 MG TABLET ONE (22:26)
[2021-01-19] MEDS ORDERED: FUROSEMIDE 20MG VIAL ONE (22:26)
[2021-01-19] MEDS ORDERED: METOPROLOL TARTRATE 50 MG TAB ONE (22:26)
[2021-01-19] MEDS ORDERED: INSULIN HUMULIN R 100 UNIT/ML 3ML ONE (22:27)
[2021-01-20] MEDS ORDERED: 0.9%NACL 1000ML 1,000 ML IV ONE ×2 (00:53→17:15)
[2021-01-20] MEDS ORDERED: ZOSYN 3.375GM+NS 50ML 50 ML IV ONE (03:12)
[2021-01-20] MEDS ORDERED: FUROSEMIDE 20MG VIAL ONE (04:33)
[2021-01-20 04:57] LABS: BASOPHILS % (AUTO) 0.3 % (0.0-5.0); EOSINOPHILS % (AUTO) 0.2 % (0.0-8.0); HEMATOCRIT 35.1 % (42-54); LYMPHOCYTES % (AUTO) 0.8 % (21.0-51.0); MEAN CORPUSCULAR HEMOGLOBIN 29.6 pg (27.0-33.0); MEAN CORPUSCULAR HGB CONC 31.6 g/dL (32.0-36.0); MEAN CORPUSCULAR VOLUME 93.6 fL (79-99); PLATELET COUNT (AUTO) 120 K/uL (130-400); RED BLOOD CELL COUNT(AUTO) 3.75 MIL/uL (4.50-6.20); RED CELL DISTRIBUTION WIDTH 16.9 % (11.0-15.5); WHITE BLOOD COUNT (AUTO) 10.9 K/uL (4.8-10.8)
[2021-01-20 05:21] LABS: B-TYPE NATRIURETIC PEPTIDE 1270 pg/mL (0-100)
[2021-01-20 05:28] LABS: ALBUMIN 2.2 g/dL (3.5-5.0); BILIRUBIN,TOTAL 1.2 mg/dL (0.2-1.0); CREATININE 1.6 mg/dL (0.5-1.5); POTASSIUM 3.3 mmol/L (3.5-5.1); TOTAL PROTEIN, SERUM 5.4 g/dL (6.0-8.3)
[2021-01-20] MEDS ORDERED: INSULIN HUMULIN R 100 UNIT/ML 3ML ONE (05:44)
[2021-01-20 05:49] LABS: CHOLESTEROL 84 mg/dL (<200); HDL CHOLESTEROL 47 mg/dL (29-71); LDL DIRECT 20 mg/dL (0-99); TRIGLYCERIDES 73 mg/dL (30-200)
[2021-01-20 09:00] VITALS: BP 116/49
[2021-01-20] MEDS: LISINOPRIL 5 MG TABLET PO SCH (09:00)
[2021-01-20 12:18] VITALS: BP 106/62
[2021-01-20] MEDS ORDERED: DEXTROSE 50%-WATER 50 ML DISP.SYRIN IV ONE (13:15)
[2021-01-20] MEDS: ACETAMINOPHEN 325 MG TAB PO PRN (15:22)
[2021-01-20] MEDS ORDERED: LORAZEPAM 2 MG/ML 1 ML VIAL IVP PRN (16:15)
[2021-01-20] MEDS ORDERED: GLUCAGON 1MG KIT 1 MG ML IM PRN (16:27)
[2021-01-20] MEDS ORDERED: MORPHINE 2 MG SYG IVP PRN (16:30)
[2021-01-20] MEDS: 0.9%NACL 1000ML 1,000 ML IV SCH (18:00)
[2021-01-20 20:00] VITALS: BP 95/47
[2021-01-20 20:30] VITALS: BP 84/56
[2021-01-20] MEDS: ATORVASTATIN 20 MG TABLET PO SCH (21:00)
[2021-01-20] MEDS: INSULIN GLARGINE 100 UNITS/ML 10 ML VIAL SQ SCH (21:00)
[2021-01-20] MEDS: FAMOTIDINE 20MG VIAL IV SCH (21:00)
[2021-01-20] MEDS: INSULIN HUMULIN R 100 UNIT/ML 3ML SQ SCH (21:00)
[2021-01-20] MEDS: NACL 0.9% IV SCH ×4 (21:45→22:45)
[2021-01-20] MEDS ORDERED: METOPROLOL TARTRATE 25 MG TAB PO SCH (22:00)
[2021-01-20] MEDS ORDERED: WARFARIN SODIUM 1 MG TAB PO SCH (22:00)
[2021-01-20] MEDS: METOPROLOL TARTRATE 25 MG TAB PO SCH (22:00)
[2021-01-20] MEDS: ENOXAPARIN SODIUM 80 MG/0.8 ML SQ SCH (23:59)
[2021-01-21] VITALS (7 sets, daily range): BP systolic 96–138; BP diastolic 47–66
[2021-01-21] MEDS: DEXTROSE 5 % AND 0.9 % NACL 1,000 ML IV SCH ×2 (00:01→11:15)
[2021-01-21] MEDS: ZOSYN 3.375GM+NS 50ML 50 ML IV SCH ×4 (00:01→20:41)
[2021-01-21] MEDS: FUROSEMIDE 20MG VIAL IV SCH ×4 (00:08→20:39)
[2021-01-21] MEDS ORDERED: WARFARIN SODIUM 2 MG TAB ONE (00:41)
[2021-01-21] MEDS: METOPROLOL TARTRATE 25 MG TAB PO SCH ×3 (06:00→20:41)
[2021-01-21] MEDS: INSULIN HUMULIN R 100 UNIT/ML 3ML SQ SCH ×4 (06:19→20:57)
[2021-01-21] MEDS: LISINOPRIL 5 MG TABLET PO SCH (07:53)
[2021-01-21] MEDS: 0.9%NACL 1000ML 1,000 ML IV SCH (08:18)
[2021-01-21] MEDS ORDERED: WARFARIN SODIUM 2 MG TAB PO SCH (09:00)
[2021-01-21] MEDS: DILTIAZEM 125 MG/25 ML INJ 125 MG in 0.9%NACL 100ML 100 ML IV SCH ×2 (09:30→21:41)
[2021-01-21] MEDS ORDERED: POTASSIUM CHLORIDE 10% ELIXIR 20 MEQ/15 ML UDCUP ONE ×2 (11:28)
[2021-01-21] MEDS ORDERED: POTASSIUM CHLORIDE 10% ELIXIR 20 MEQ/15 ML UDCUP PO SCH (13:30)
[2021-01-21] MEDS: ATORVASTATIN 20 MG TABLET PO SCH ×2 (20:38)
[2021-01-21] MEDS: FAMOTIDINE 20MG VIAL IV SCH ×2 (20:39)
[2021-01-21] MEDS: ACETAMINOPHEN 325 MG TAB PO PRN (20:39)
[2021-01-21] MEDS: ENOXAPARIN SODIUM 80 MG/0.8 ML SQ SCH (20:41)
[2021-01-21] MEDS: INSULIN GLARGINE 100 UNITS/ML 10 ML VIAL SQ SCH (20:57)
[2021-01-22] VITALS (8 sets, daily range): BP systolic 89–119; BP diastolic 44–65
[2021-01-22] MEDS: DEXTROSE 5 % AND 0.9 % NACL 1,000 ML IV SCH ×2 (04:03→15:21)
[2021-01-22] MEDS: FUROSEMIDE 20MG VIAL IV SCH ×3 (04:57→21:09)
[2021-01-22] MEDS: ZOSYN 3.375GM+NS 50ML 50 ML IV SCH ×3 (05:05→21:09)
[2021-01-22 05:22] LABS: BASOPHILS % (AUTO) 0.3 % (0.0-5.0); EOSINOPHILS % (AUTO) 1.5 % (0.0-8.0); HEMATOCRIT 29.4 % (42-54); LYMPHOCYTES % (AUTO) 7.8 % (21.0-51.0); MEAN CORPUSCULAR HGB CONC 31.3 g/dL (32.0-36.0); MEAN CORPUSCULAR VOLUME 92.7 fL (79-99); MONOCYTES % (AUTO) 5.3 % (3.0-13.0); NEUTROPHILS % (AUTO) 84.7 % (40.0-77.0); PLATELET COUNT (AUTO) 112 K/uL (130-400); RED BLOOD CELL COUNT(AUTO) 3.17 MIL/uL (4.50-6.20); RED CELL DISTRIBUTION WIDTH 17.1 % (11.0-15.5)
[2021-01-22] MEDS: METOPROLOL TARTRATE 25 MG TAB PO SCH ×3 (05:38→21:16)
[2021-01-22] MEDS: INSULIN HUMULIN R 100 UNIT/ML 3ML SQ SCH ×4 (05:55→21:13)
[2021-01-22 05:56] LABS: ALBUMIN 1.7 g/dL (3.5-5.0); BILIRUBIN,TOTAL 0.8 mg/dL (0.2-1.0); CREATININE 1.2 mg/dL (0.5-1.5); TOTAL PROTEIN, SERUM 4.4 g/dL (6.0-8.3)
[2021-01-22 06:10] LABS: POTASSIUM 2.9 mmol/L (3.5-5.1)
[2021-01-22] MEDS ORDERED: KCL 20 MEQ ERTAB PO ONE (07:38)
[2021-01-22] MEDS: LISINOPRIL 5 MG TABLET PO SCH (07:44)
[2021-01-22] MEDS ORDERED: POTASSIUM CHLORIDE 20MEQ/100ML 100 ML IV ONE (09:53)
[2021-01-22] MEDS ORDERED: TRAMADOL HCL 50 MG TABLET PO PRN (10:15)
[2021-01-22] MEDS ORDERED: KCL 20 MEQ ERTAB PO SCH (10:45)
[2021-01-22] MEDS: ASPIRIN 81MG CHEW TAB PO SCH (21:09)
[2021-01-22] MEDS: FAMOTIDINE 20MG VIAL IV SCH (21:09)
[2021-01-22] MEDS: ATORVASTATIN 20 MG TABLET PO SCH (21:09)
[2021-01-22] MEDS: INSULIN GLARGINE 100 UNITS/ML 10 ML VIAL SQ SCH (21:13)
[2021-01-23] VITALS (8 sets, daily range): BP systolic 117–142; BP diastolic 63–76
[2021-01-23] MEDS: DEXTROSE 5 % AND 0.9 % NACL 1,000 ML IV SCH ×2 (04:01→17:51)
[2021-01-23] MEDS: FUROSEMIDE 20MG VIAL IV SCH ×3 (04:31→22:11)
[2021-01-23] MEDS: ZOSYN 3.375GM+NS 50ML 50 ML IV SCH ×3 (04:31→22:29)
[2021-01-23 05:57] LABS: BASOPHILS % (AUTO) 0.3 % (0.0-5.0); EOSINOPHILS % (AUTO) 2.9 % (0.0-8.0); LYMPHOCYTES % (AUTO) 12.8 % (21.0-51.0); MEAN CORPUSCULAR HEMOGLOBIN 28.9 pg (27.0-33.0); MEAN CORPUSCULAR HGB CONC 31.9 g/dL (32.0-36.0); MEAN CORPUSCULAR VOLUME 90.7 fL (79-99); NEUTROPHILS % (AUTO) 78.4 % (40.0-77.0); PLATELET COUNT (AUTO) 118 K/uL (130-400); RED BLOOD CELL COUNT(AUTO) 3.53 MIL/uL (4.50-6.20); RED CELL DISTRIBUTION WIDTH 17.2 % (11.0-15.5); WHITE BLOOD COUNT (AUTO) 8.9 K/uL (4.8-10.8)
[2021-01-23] MEDS: METOPROLOL TARTRATE 25 MG TAB PO SCH ×3 (05:59→22:10)
[2021-01-23 06:07] LABS: POTASSIUM 3.3 mmol/L (3.5-5.1)
[2021-01-23] MEDS: INSULIN HUMULIN R 100 UNIT/ML 3ML SQ SCH ×4 (06:30→21:00)
[2021-01-23 07:07] LABS: INR > 7.00 (0.85-1.15); PROTHROMBIN TIME 86.5 SEC (9.6-11.6)
[2021-01-23] MEDS ORDERED: WARFARIN SODIUM 1 MG TAB PO SCH (09:00)
[2021-01-23] MEDS: LISINOPRIL 5 MG TABLET PO SCH (10:10)
[2021-01-23] MEDS: PHYTONADIONE 10 MG/1 ML AMP IM SCH (17:39)
[2021-01-23] MEDS: ATORVASTATIN 20 MG TABLET PO SCH (22:10)
[2021-01-23] MEDS: ASPIRIN 81MG CHEW TAB PO SCH (22:10)
[2021-01-23] MEDS: FAMOTIDINE 20MG VIAL IV SCH (22:10)
[2021-01-23] MEDS: INSULIN GLARGINE 100 UNITS/ML 10 ML VIAL SQ SCH (22:27)
[2021-01-24 04:22] VITALS: BP 121/57
[2021-01-24 04:26] LABS: BASOPHILS % (AUTO) 0.3 % (0.0-5.0); EOSINOPHILS % (AUTO) 3.7 % (0.0-8.0); HEMATOCRIT 30.3 % (42-54); LYMPHOCYTES % (AUTO) 21.1 % (21.0-51.0); MEAN CORPUSCULAR VOLUME 90.7 fL (79-99); MONOCYTES % (AUTO) 6.9 % (3.0-13.0); NEUTROPHILS % (AUTO) 67.2 % (40.0-77.0); PLATELET COUNT (AUTO) 126 K/uL (130-400); RED BLOOD CELL COUNT(AUTO) 3.34 MIL/uL (4.50-6.20); RED CELL DISTRIBUTION WIDTH 17.2 % (11.0-15.5)
[2021-01-24] MEDS: FUROSEMIDE 20MG VIAL IV SCH ×3 (04:30→21:34)
[2021-01-24 04:38] LABS: INR 3.37 (0.85-1.15); PROTHROMBIN TIME 32.9 SEC (9.6-11.6)
[2021-01-24 04:52] LABS: ALBUMIN 1.8 g/dL (3.5-5.0); BILIRUBIN,TOTAL 0.7 mg/dL (0.2-1.0); POTASSIUM 3.1 mmol/L (3.5-5.1); TOTAL PROTEIN, SERUM 4.9 g/dL (6.0-8.3)
[2021-01-24] MEDS: DEXTROSE 5 % AND 0.9 % NACL 1,000 ML IV SCH ×2 (05:40→20:20)
[2021-01-24] MEDS: INSULIN HUMULIN R 100 UNIT/ML 3ML SQ SCH ×4 (05:54→21:00)
[2021-01-24] MEDS: METOPROLOL TARTRATE 25 MG TAB PO SCH ×3 (06:00→21:36)
[2021-01-24] MEDS: ZOSYN 3.375GM+NS 50ML 50 ML IV SCH ×3 (06:06→21:35)
[2021-01-24] MEDS ORDERED: POTASSIUM CHLORIDE 20MEQ/100ML 100 ML IV PRN (07:15)
[2021-01-24] MEDS ORDERED: POTASSIUM CHLORIDE 10% ELIXIR 20 MEQ/15 ML UDCUP PO PRN (07:15)
[2021-01-24] MEDS ORDERED: LIDOCAINE HCL-MPF 1% 2ML VIAL IV PRN (07:15)
[2021-01-24 07:35] VITALS: BP 145/61
[2021-01-24] MEDS: LISINOPRIL 5 MG TABLET PO SCH (10:31)
[2021-01-24] MEDS: KCL 20 MEQ ERTAB PO PRN ×3 (10:32→19:31)
[2021-01-24 12:00] VITALS: BP 162/86
[2021-01-24] MEDS: PHYTONADIONE 10 MG/1 ML AMP IM SCH (12:40)
[2021-01-24 16:00] VITALS: BP 135/74
[2021-01-24 20:05] VITALS: BP 142/80
[2021-01-24] MEDS: ASPIRIN 81MG CHEW TAB PO SCH (21:34)
[2021-01-24] MEDS: FAMOTIDINE 20MG VIAL IV SCH (21:35)
[2021-01-24] MEDS: ATORVASTATIN 20 MG TABLET PO SCH (21:35)
[2021-01-24] MEDS: INSULIN GLARGINE 100 UNITS/ML 10 ML VIAL SQ SCH (21:50)
[2021-01-25] VITALS (7 sets, daily range): BP systolic 130–177; BP diastolic 61–91
[2021-01-25] MEDS: FUROSEMIDE 20MG VIAL IV SCH ×3 (05:43→20:11)
[2021-01-25] MEDS: ZOSYN 3.375GM+NS 50ML 50 ML IV SCH ×3 (05:43→20:56)
[2021-01-25] MEDS: INSULIN HUMULIN R 100 UNIT/ML 3ML SQ SCH ×4 (06:35→20:25)
[2021-01-25] MEDS ORDERED: PHARMACY COMMUNICATION MISC SCH (06:45)
[2021-01-25] MEDS ORDERED: VANCOMYCIN 1G 1.5 GM in 0.9% NACL 250ML 250 ML IV SCH (07:30)
[2021-01-25] MEDS ORDERED: IOHEXOL 350 MG/ML 100ML INFUS..BTL IV ONE (08:02)
[2021-01-25] MEDS ORDERED: IOHEXOL-350 50ML VIAL IV ONE (08:02)
[2021-01-25] MEDS: LISINOPRIL 5 MG TABLET PO SCH (09:30)
[2021-01-25] MEDS ORDERED: SULFAMETHOX-TMP DS 800/160 TAB PO SCH (13:15)
[2021-01-25] MEDS: METOPROLOL TARTRATE 25 MG TAB PO SCH ×2 (13:25→20:12)
[2021-01-25] MEDS: PHYTONADIONE 10 MG/1 ML AMP IM SCH (13:30)
[2021-01-25] MEDS: DEXTROSE 5 % AND 0.9 % NACL 1,000 ML IV SCH ×2 (13:31→23:00)
[2021-01-25] MEDS: ATORVASTATIN 20 MG TABLET PO SCH (20:11)
[2021-01-25] MEDS: ASPIRIN 81MG CHEW TAB PO SCH (20:11)
[2021-01-25] MEDS: SULFAMETHOX-TMP DS 800/160 TAB PO SCH (20:11)
[2021-01-25] MEDS: FAMOTIDINE 20MG VIAL IV SCH (20:12)
[2021-01-25] MEDS: INSULIN GLARGINE 100 UNITS/ML 10 ML VIAL SQ SCH (20:24)
[2021-01-25] MEDS ORDERED: VANCOMYCIN 1G/250ML KIT 250 ML IV SCH (21:00)
[2021-01-26] MEDS: ZOSYN 3.375GM+NS 50ML 50 ML IV SCH ×2 (05:27→12:54)
[2021-01-26] MEDS: FUROSEMIDE 20MG VIAL IV SCH (05:28)
[2021-01-26] MEDS: METOPROLOL TARTRATE 25 MG TAB PO SCH (05:35)
[2021-01-26 05:44] VITALS: BP 149/75
[2021-01-26] MEDS: INSULIN HUMULIN R 100 UNIT/ML 3ML SQ SCH ×4 (07:30→23:32)
[2021-01-26 08:00] VITALS: BP 108/58
[2021-01-26] MEDS: METOPROLOL SUCCINATE 50 MG TAB.SR.24H PO SCH ×2 (09:21→23:12)
[2021-01-26] MEDS: SULFAMETHOX-TMP DS 800/160 TAB PO SCH ×2 (09:21→23:12)
[2021-01-26] MEDS: LISINOPRIL 5 MG TABLET PO SCH (09:21)
[2021-01-26] MEDS: FUROSEMIDE 40 MG TABLET PO SCH ×2 (09:21→16:45)
[2021-01-26 10:06] LABS: HEMATOCRIT 31.9 % (42-54); MEAN CORPUSCULAR HEMOGLOBIN 28.6 pg (27.0-33.0); MEAN CORPUSCULAR HGB CONC 30.4 g/dL (32.0-36.0); MEAN CORPUSCULAR VOLUME 94.1 fL (79-99); PLATELET COUNT (AUTO) 237 K/uL (130-400); RED BLOOD CELL COUNT(AUTO) 3.39 MIL/uL (4.50-6.20); RED CELL DISTRIBUTION WIDTH 17.4 % (11.0-15.5); WHITE BLOOD COUNT (AUTO) 7.3 K/uL (4.8-10.8)
[2021-01-26 10:22] LABS: CREATININE 0.9 mg/dL (0.5-1.5); POTASSIUM 3.3 mmol/L (3.5-5.1)
[2021-01-26 10:59] LABS: LYMPHOCYTES % (MANUAL) 13 % (22-44); MAN.DIFF COMMENT-IMPRESSION MANUAL DIFFERENTIAL; MONOCYTES % (MANUAL) 7 % (2-9); SEGMENTED NEUTROPHILS % 80 % (40-70)
[2021-01-26 11:01] LABS: PLATELET MORPHOLOGY COMMENT ADEQUATE
[2021-01-26 11:46] VITALS: BP 100/59
[2021-01-26 12:14] LABS: INR 1.16 (0.85-1.15); PROTHROMBIN TIME 12.5 SEC (9.6-11.6)
[2021-01-26] MEDS: DEXTROSE 5 % AND 0.9 % NACL 1,000 ML IV SCH (12:20)
[2021-01-26 16:00] VITALS: BP 112/64
[2021-01-26] MEDS: ASPIRIN 81MG CHEW TAB PO SCH (20:00)
[2021-01-26] MEDS: APIXABAN 5 MG TABLET PO SCH (21:00)
[2021-01-26 21:26] VITALS: BP 131/59
[2021-01-26] MEDS: FAMOTIDINE 20MG VIAL IV SCH (23:12)
[2021-01-26] MEDS: ATORVASTATIN 20 MG TABLET PO SCH (23:12)
[2021-01-26] MEDS: INSULIN GLARGINE 100 UNITS/ML 10 ML VIAL SQ SCH (23:34)
[2021-01-26 23:43] VITALS: BP 172/85
[2021-01-27] VITALS (26 sets, daily range): BP systolic 63–162; BP diastolic 24–116
[2021-01-27 04:53] LABS: BASOPHILS % (AUTO) 0.6 % (0.0-5.0); EOSINOPHILS % (AUTO) 0.9 % (0.0-8.0); HEMATOCRIT 29.6 % (42-54); LYMPHOCYTES % (AUTO) 25.4 % (21.0-51.0); MEAN CORPUSCULAR HEMOGLOBIN 29.1 pg (27.0-33.0); MEAN CORPUSCULAR HGB CONC 32.4 g/dL (32.0-36.0); MEAN CORPUSCULAR VOLUME 89.7 fL (79-99); MONOCYTES % (AUTO) 7.1 % (3.0-13.0); NEUTROPHILS % (AUTO) 64.1 % (40.0-77.0); PLATELET COUNT (AUTO) 285 K/uL (130-400); RED CELL DISTRIBUTION WIDTH 17.2 % (11.0-15.5); WHITE BLOOD COUNT (AUTO) 9.3 K/uL (4.8-10.8)
[2021-01-27 05:08] LABS: CREATININE 0.8 mg/dL (0.5-1.5); POTASSIUM 3.1 mmol/L (3.5-5.1)
[2021-01-27 05:29] LABS: INR 1.17 (0.85-1.15); PROTHROMBIN TIME 12.6 SEC (9.6-11.6)
[2021-01-27 05:30] LABS: PARTIAL THROMBOPLASTIN TIME 29.6 SEC (26.3-35.5)
[2021-01-27] MEDS: DEXTROSE 5 % AND 0.9 % NACL 1,000 ML IV SCH ×2 (06:15→13:28)
[2021-01-27] MEDS: DEXTROSE 50%-WATER 50 ML DISP.SYRIN IV PRN ×3 (06:26→21:35)
[2021-01-27] MEDS: INSULIN HUMULIN R 100 UNIT/ML 3ML SQ SCH ×4 (07:30→20:52)
[2021-01-27] MEDS: APIXABAN 5 MG TABLET PO SCH ×2 (09:00→21:33)
[2021-01-27] MEDS: LISINOPRIL 5 MG TABLET PO SCH (09:00)
[2021-01-27] MEDS ORDERED: PROPOFOL 10 MG/ML 20ML VIAL IV ONE (13:02)
[2021-01-27] MEDS ORDERED: LIDOCAINE PF 100MG/5ML (2%) SYRINGE 5ML ONE (13:02)
[2021-01-27] MEDS ORDERED: FENTANYL CITRATE PF 50 MCG/1 ML 2ML VIAL ONE (13:03)
[2021-01-27] MEDS ORDERED: ROCURONIUM 10MG/1ML SYR 10 MG/ML ML ONE ×2 (13:03→15:13)
[2021-01-27] MEDS ORDERED: MIDAZOLAM HCL 1 MG/ML 2ML VIAL ONE ×2 (13:03→18:23)
[2021-01-27] MEDS: METOPROLOL SUCCINATE 50 MG TAB.SR.24H PO SCH ×2 (13:14→21:00)
[2021-01-27] MEDS: SULFAMETHOX-TMP DS 800/160 TAB PO SCH ×2 (13:27→21:33)
[2021-01-27] MEDS ORDERED: CEFAZOLIN SODIUM 1 GM VIAL ONE ×2 (13:28→13:59)
[2021-01-27] MEDS ORDERED: 0.9%NACL 1000ML 1,000 ML IV ONE (13:28)
[2021-01-27] MEDS: FUROSEMIDE 40 MG TABLET PO SCH ×2 (13:28→17:00)
[2021-01-27] MEDS ORDERED: TRAMADOL HCL 50 MG TABLET PO PRN (14:15)
[2021-01-27] MEDS ORDERED: EPHEDRINE SULFATE 50 MG/ML AMPULE ONE (14:53)
[2021-01-27 15:13] LABS: ABG BASE EXCESS 3.7 mmol/L (-2.0-3.0); ABG HCO3 29.1 mmol/L (21.0-28.0); ABG OXYGEN SATURATION 98.6 % (95.0-99.0); ABG PCO2 49 mmHg (35-48)
[2021-01-27] MEDS ORDERED: PHENYLEPHRINE HCL 10 MG/ML 1ML VIAL IV ONE (16:53)
[2021-01-27] MEDS ORDERED: SUGAMMADEX SODIUM 200 MG/2 ML VIAL IV ONE (17:40)
[2021-01-27 18:27] LABS: HEMATOCRIT 36.9 % (42-54)
[2021-01-27] MEDS: INSULIN GLARGINE 100 UNITS/ML 10 ML VIAL SQ SCH (20:52)
[2021-01-27] MEDS: FAMOTIDINE 20MG VIAL IV SCH (21:33)
[2021-01-27] MEDS: ATORVASTATIN 20 MG TABLET PO SCH (21:33)
[2021-01-27] MEDS: ASPIRIN 81MG CHEW TAB PO SCH (21:35)
[2021-01-27] MEDS: CEFAZOLIN SODIUM 1 GM VIAL IVP SCH (23:22)
[2021-01-28] VITALS (7 sets, daily range): BP systolic 100–124; BP diastolic 52–73
[2021-01-28] MEDS: DEXTROSE 5 % AND 0.9 % NACL 1,000 ML IV SCH ×2 (04:29→17:40)
[2021-01-28 05:51] LABS: HEMATOCRIT 31.8 % (42-54); MEAN CORPUSCULAR HEMOGLOBIN 29.1 pg (27.0-33.0); MEAN CORPUSCULAR HGB CONC 32.1 g/dL (32.0-36.0); MEAN CORPUSCULAR VOLUME 90.9 fL (79-99); RED BLOOD CELL COUNT(AUTO) 3.5 MIL/uL (4.50-6.20); RED CELL DISTRIBUTION WIDTH 17.7 % (11.0-15.5); WHITE BLOOD COUNT (AUTO) 11.9 K/uL (4.8-10.8)
[2021-01-28] MEDS: INSULIN HUMULIN R 100 UNIT/ML 3ML SQ SCH ×4 (06:13→21:24)
[2021-01-28 06:16] LABS: CREATININE 0.9 mg/dL (0.5-1.5); POTASSIUM 4.3 mmol/L (3.5-5.1)
[2021-01-28] MEDS: CEFAZOLIN SODIUM 1 GM VIAL IVP SCH ×2 (07:38→15:01)
[2021-01-28] MEDS: LISINOPRIL 5 MG TABLET PO SCH (09:58)
[2021-01-28] MEDS: METOPROLOL SUCCINATE 50 MG TAB.SR.24H PO SCH ×2 (09:58→21:12)
[2021-01-28] MEDS: FUROSEMIDE 40 MG TABLET PO SCH ×2 (09:58→18:45)
[2021-01-28] MEDS: APIXABAN 5 MG TABLET PO SCH ×2 (09:58→21:10)
[2021-01-28] MEDS: SULFAMETHOX-TMP DS 800/160 TAB PO SCH ×2 (09:59→21:10)
[2021-01-28] MEDS: ASPIRIN 81MG CHEW TAB PO SCH (21:10)
[2021-01-28] MEDS: FAMOTIDINE 20MG VIAL IV SCH (21:10)
[2021-01-28] MEDS: ATORVASTATIN 20 MG TABLET PO SCH (21:11)
[2021-01-28] MEDS: INSULIN GLARGINE 100 UNITS/ML 10 ML VIAL SQ SCH (21:26)
[2021-01-28] MEDS: NICOTINE 21 MG/ 24 HR PATCH TD SCH (22:45)
[2021-01-29] VITALS (20 sets, daily range): BP systolic 93–151; BP diastolic 41–99
[2021-01-29] MEDS: ACETAMINOPHEN 325 MG TAB PO PRN (02:58)
[2021-01-29 04:38] LABS: BASOPHILS % (AUTO) 0.4 % (0.0-5.0); EOSINOPHILS % (AUTO) 0.3 % (0.0-8.0); HEMATOCRIT 27.1 % (42-54); LYMPHOCYTES % (AUTO) 20.1 % (21.0-51.0); MEAN CORPUSCULAR HEMOGLOBIN 28.7 pg (27.0-33.0); MEAN CORPUSCULAR HGB CONC 31.7 g/dL (32.0-36.0); MEAN CORPUSCULAR VOLUME 90.3 fL (79-99); MONOCYTES % (AUTO) 8.2 % (3.0-13.0); NEUTROPHILS % (AUTO) 69.7 % (40.0-77.0); PLATELET COUNT (AUTO) 260 K/uL (130-400); RED CELL DISTRIBUTION WIDTH 17.5 % (11.0-15.5); WHITE BLOOD COUNT (AUTO) 9.6 K/uL (4.8-10.8)
[2021-01-29 04:53] LABS: BILIRUBIN,TOTAL 0.5 mg/dL (0.2-1.0); POTASSIUM 3.7 mmol/L (3.5-5.1); TOTAL PROTEIN, SERUM 4.9 g/dL (6.0-8.3)
[2021-01-29] MEDS: DEXTROSE 5 % AND 0.9 % NACL 1,000 ML IV SCH ×2 (07:00→20:50)
[2021-01-29] MEDS ORDERED: PROPOFOL 1000 MG/100 ML 100 ML IV ONE (07:06)
[2021-01-29] MEDS ORDERED: BUPIVACAINE/PF 0.5% 30ML VIAL ONE (07:07)
[2021-01-29] MEDS ORDERED: LIDOCAINE HCL 1% 20 ML VIAL ONE (07:07)
[2021-01-29] MEDS: INSULIN HUMULIN R 100 UNIT/ML 3ML SQ SCH ×4 (07:30→21:00)
[2021-01-29] MEDS ORDERED: FENTANYL CITRATE PF 50 MCG/1 ML 2ML VIAL ONE (08:06)
[2021-01-29] MEDS ORDERED: ONDANSETRON 4MG INJ ONE (08:44)
[2021-01-29] MEDS: APIXABAN 5 MG TABLET PO SCH ×2 (09:00→20:50)
[2021-01-29] MEDS: METOPROLOL SUCCINATE 50 MG TAB.SR.24H PO SCH ×2 (09:00→14:06)
[2021-01-29] MEDS: FUROSEMIDE 40 MG TABLET PO SCH ×2 (09:00→14:12)
[2021-01-29] MEDS: LISINOPRIL 5 MG TABLET PO SCH (09:00)
[2021-01-29] MEDS: SULFAMETHOX-TMP DS 800/160 TAB PO SCH ×2 (09:00→20:51)
[2021-01-29] MEDS ORDERED: MORPHINE 2 MG SYG IVP PRN (11:00)
[2021-01-29] MEDS ORDERED: HYDROMORPHONE 0.5 MG SYG (0.5MG/0.5ML) IVP PRN (11:00)
[2021-01-29] MEDS: ASPIRIN 81MG CHEW TAB PO SCH (14:04)
[2021-01-29] MEDS: NICOTINE 21 MG/ 24 HR PATCH TD SCH (14:13)
[2021-01-29] MEDS: KCL 20 MEQ ERTAB PO PRN (14:20)
[2021-01-29] MEDS: HYDROMORPHONE 2 MG VIAL (2MG/ML) IVP PRN (14:36)
[2021-01-29] MEDS: FAMOTIDINE 20MG VIAL IV SCH (20:50)
[2021-01-29] MEDS: ATORVASTATIN 20 MG TABLET PO SCH (20:50)
[2021-01-29] MEDS: INSULIN GLARGINE 100 UNITS/ML 10 ML VIAL SQ SCH (20:59)
[2021-01-30] MEDS: TRAZODONE HCL 50 MG TAB PO PRN (02:20)
[2021-01-30 04:00] VITALS: BP 164/77
[2021-01-30 04:12] LABS: BASOPHILS % (AUTO) 0.6 % (0.0-5.0); EOSINOPHILS % (AUTO) 0.3 % (0.0-8.0); HEMATOCRIT 30.9 % (42-54); LYMPHOCYTES % (AUTO) 14.4 % (21.0-51.0); MEAN CORPUSCULAR HEMOGLOBIN 28.1 pg (27.0-33.0); MEAN CORPUSCULAR HGB CONC 29.8 g/dL (32.0-36.0); MEAN CORPUSCULAR VOLUME 94.5 fL (79-99); MONOCYTES % (AUTO) 6.6 % (3.0-13.0); NEUTROPHILS % (AUTO) 76.9 % (40.0-77.0); PLATELET COUNT (AUTO) 302 K/uL (130-400); RED BLOOD CELL COUNT(AUTO) 3.27 MIL/uL (4.50-6.20); RED CELL DISTRIBUTION WIDTH 17.6 % (11.0-15.5)
[2021-01-30 04:39] LABS: ALBUMIN 2.2 g/dL (3.5-5.0); BILIRUBIN,TOTAL 0.4 mg/dL (0.2-1.0); POTASSIUM 4.4 mmol/L (3.5-5.1); TOTAL PROTEIN, SERUM 5.5 g/dL (6.0-8.3)
[2021-01-30] MEDS: INSULIN HUMULIN R 100 UNIT/ML 3ML SQ SCH ×4 (06:46→20:12)
[2021-01-30] MEDS: DEXTROSE 5 % AND 0.9 % NACL 1,000 ML IV SCH (09:40)
[2021-01-30] MEDS: APIXABAN 5 MG TABLET PO SCH ×2 (11:08→19:45)
[2021-01-30] MEDS: SULFAMETHOX-TMP DS 800/160 TAB PO SCH ×2 (11:08→19:44)
[2021-01-30] MEDS: METOPROLOL SUCCINATE 50 MG TAB.SR.24H PO SCH (11:13)
[2021-01-30] MEDS: LISINOPRIL 5 MG TABLET PO SCH (11:16)
[2021-01-30 13:17] VITALS: BP 108/48
[2021-01-30 17:17] VITALS: BP 129/59
[2021-01-30] MEDS: FUROSEMIDE 40 MG TABLET PO SCH (18:17)
[2021-01-30] MEDS: ATORVASTATIN 20 MG TABLET PO SCH (19:44)
[2021-01-30] MEDS: ASPIRIN 81MG CHEW TAB PO SCH (19:44)
[2021-01-30] MEDS: FAMOTIDINE 20MG VIAL IV SCH (19:45)
[2021-01-30] MEDS: TRAMADOL HCL 50 MG TABLET PO PRN (19:45)
[2021-01-30 20:07] VITALS: BP 129/85
[2021-01-30] MEDS: INSULIN GLARGINE 100 UNITS/ML 10 ML VIAL SQ SCH (21:06)
[2021-01-30] MEDS: NICOTINE 21 MG/ 24 HR PATCH TD SCH (21:09)
[2021-01-31 00:01] VITALS: BP 132/86
[2021-01-31] MEDS: TRAMADOL HCL 50 MG TABLET PO PRN (01:55)
[2021-01-31 02:56] VITALS: BP 130/68
[2021-01-31 04:56] LABS: BASOPHILS % (AUTO) 0.6 % (0.0-5.0); EOSINOPHILS % (AUTO) 0.1 % (0.0-8.0); HEMATOCRIT 26.4 % (42-54); LYMPHOCYTES % (AUTO) 14.1 % (21.0-51.0); MEAN CORPUSCULAR HEMOGLOBIN 28.9 pg (27.0-33.0); MEAN CORPUSCULAR HGB CONC 31.4 g/dL (32.0-36.0); MONOCYTES % (AUTO) 8.5 % (3.0-13.0); NEUTROPHILS % (AUTO) 76.1 % (40.0-77.0); PLATELET COUNT (AUTO) 258 K/uL (130-400); RED BLOOD CELL COUNT(AUTO) 2.87 MIL/uL (4.50-6.20); RED CELL DISTRIBUTION WIDTH 17.2 % (11.0-15.5); WHITE BLOOD COUNT (AUTO) 9.6 K/uL (4.8-10.8)
[2021-01-31] MEDS: INSULIN HUMULIN R 100 UNIT/ML 3ML SQ SCH ×4 (05:15→21:00)
[2021-01-31 05:27] LABS: BILIRUBIN,TOTAL 0.5 mg/dL (0.2-1.0); CREATININE 0.8 mg/dL (0.5-1.5); POTASSIUM 4.3 mmol/L (3.5-5.1); TOTAL PROTEIN, SERUM 5.2 g/dL (6.0-8.3)
[2021-01-31] MEDS: SULFAMETHOX-TMP DS 800/160 TAB PO SCH ×2 (09:30→21:03)
[2021-01-31] MEDS: APIXABAN 5 MG TABLET PO SCH ×2 (09:31→21:04)
[2021-01-31] MEDS: FUROSEMIDE 40 MG TABLET PO SCH ×2 (09:31→17:03)
[2021-01-31] MEDS: METOPROLOL SUCCINATE 50 MG TAB.SR.24H PO SCH ×2 (09:31→21:10)
[2021-01-31] MEDS: LISINOPRIL 5 MG TABLET PO SCH (09:31)
[2021-01-31 12:00] VITALS: BP 125/46
[2021-01-31 16:51] VITALS: BP 142/86
[2021-01-31 19:30] VITALS: BP 116/60
[2021-01-31] MEDS: FAMOTIDINE 20MG VIAL IV SCH (21:03)
[2021-01-31] MEDS: ASPIRIN 81MG CHEW TAB PO SCH (21:03)
[2021-01-31] MEDS: INSULIN GLARGINE 100 UNITS/ML 10 ML VIAL SQ SCH (21:06)
[2021-01-31] MEDS: ATORVASTATIN 20 MG TABLET PO SCH (21:09)
[2021-01-31] MEDS: NICOTINE 21 MG/ 24 HR PATCH TD SCH (23:21)
[2021-01-31 23:30] VITALS: BP 138/71
[2021-02-01 04:30] VITALS: BP 177/89
[2021-02-01] MEDS: TRAMADOL HCL 50 MG TABLET PO PRN (04:59)
[2021-02-01 06:51] LABS: BASOPHILS % (AUTO) 0.6 % (0.0-5.0); EOSINOPHILS % (AUTO) 0.1 % (0.0-8.0); HEMATOCRIT 30.3 % (42-54); LYMPHOCYTES % (AUTO) 13.9 % (21.0-51.0); MEAN CORPUSCULAR HEMOGLOBIN 28.9 pg (27.0-33.0); MEAN CORPUSCULAR HGB CONC 31.4 g/dL (32.0-36.0); MEAN CORPUSCULAR VOLUME 92.1 fL (79-99); MONOCYTES % (AUTO) 6.2 % (3.0-13.0); NEUTROPHILS % (AUTO) 78.5 % (40.0-77.0); PLATELET COUNT (AUTO) 332 K/uL (130-400); RED BLOOD CELL COUNT(AUTO) 3.29 MIL/uL (4.50-6.20); RED CELL DISTRIBUTION WIDTH 17.1 % (11.0-15.5); WHITE BLOOD COUNT (AUTO) 13.4 K/uL (4.8-10.8)
[2021-02-01 07:08] LABS: ALBUMIN 2.2 g/dL (3.5-5.0); BILIRUBIN,TOTAL 0.6 mg/dL (0.2-1.0); CREATININE 0.8 mg/dL (0.5-1.5); POTASSIUM 4.4 mmol/L (3.5-5.1); TOTAL PROTEIN, SERUM 6.1 g/dL (6.0-8.3)
[2021-02-01] MEDS: INSULIN HUMULIN R 100 UNIT/ML 3ML SQ SCH ×4 (07:30→20:53)
[2021-02-01] MEDS: APIXABAN 5 MG TABLET PO SCH ×2 (07:53→20:51)
[2021-02-01] MEDS: LISINOPRIL 5 MG TABLET PO SCH (07:54)
[2021-02-01] MEDS: SULFAMETHOX-TMP DS 800/160 TAB PO SCH ×2 (07:55→20:51)
[2021-02-01] MEDS: METOPROLOL SUCCINATE 50 MG TAB.SR.24H PO SCH ×2 (07:55→20:51)
[2021-02-01] MEDS: FUROSEMIDE 40 MG TABLET PO SCH ×2 (07:55→18:02)
[2021-02-01 08:00] VITALS: BP 145/76
[2021-02-01 12:00] VITALS: BP 157/84
[2021-02-01] MEDS ORDERED: LACTULOSE 20 GM/30 ML UDCUP PO PRN (14:45)
[2021-02-01 16:24] VITALS: BP 160/74
[2021-02-01 20:05] VITALS: BP 152/82
[2021-02-01] MEDS: ATORVASTATIN 20 MG TABLET PO SCH (20:51)
[2021-02-01] MEDS: ASPIRIN 81MG CHEW TAB PO SCH (20:52)
[2021-02-01] MEDS: FAMOTIDINE 20MG VIAL IV SCH (20:52)
[2021-02-01] MEDS: INSULIN GLARGINE 100 UNITS/ML 10 ML VIAL SQ SCH (20:54)
[2021-02-01] MEDS ORDERED: METOPROLOL TARTRATE 1 MG/ML 5ML VIAL IV ONE (21:15)
[2021-02-01] MEDS: NICOTINE 21 MG/ 24 HR PATCH TD SCH (22:30)
[2021-02-01 23:08] VITALS: BP 128/71
[2021-02-02 03:23] VITALS: BP 145/82
[2021-02-02 04:23] LABS: BASOPHILS % (AUTO) 0.4 % (0.0-5.0); EOSINOPHILS % (AUTO) 0.1 % (0.0-8.0); HEMATOCRIT 27.6 % (42-54); LYMPHOCYTES % (AUTO) 15.3 % (21.0-51.0); MEAN CORPUSCULAR HEMOGLOBIN 28.6 pg (27.0-33.0); MEAN CORPUSCULAR HGB CONC 31.2 g/dL (32.0-36.0); MEAN CORPUSCULAR VOLUME 91.7 fL (79-99); MONOCYTES % (AUTO) 6.7 % (3.0-13.0); NEUTROPHILS % (AUTO) 76.9 % (40.0-77.0); PLATELET COUNT (AUTO) 329 K/uL (130-400); RED BLOOD CELL COUNT(AUTO) 3.01 MIL/uL (4.50-6.20); RED CELL DISTRIBUTION WIDTH 17.1 % (11.0-15.5); WHITE BLOOD COUNT (AUTO) 11.3 K/uL (4.8-10.8)
[2021-02-02] MEDS: INSULIN HUMULIN R 100 UNIT/ML 3ML SQ SCH ×4 (06:57→20:14)
[2021-02-02] MEDS: LISINOPRIL 5 MG TABLET PO SCH (09:51)
[2021-02-02] MEDS: SULFAMETHOX-TMP DS 800/160 TAB PO SCH ×2 (09:51→20:00)
[2021-02-02] MEDS: FUROSEMIDE 40 MG TABLET PO SCH ×2 (09:51→16:03)
[2021-02-02] MEDS: APIXABAN 5 MG TABLET PO SCH ×2 (09:51→20:00)
[2021-02-02] MEDS: METOPROLOL SUCCINATE 50 MG TAB.SR.24H PO SCH ×2 (09:51→20:00)
[2021-02-02] MEDS: ACETAMINOPHEN 325 MG TAB PO PRN (16:04)
[2021-02-02 19:18] VITALS: BP 124/78
[2021-02-02] MEDS: ASPIRIN 81MG CHEW TAB PO SCH (20:00)
[2021-02-02] MEDS: FAMOTIDINE 20MG VIAL IV SCH (20:00)
[2021-02-02] MEDS: ATORVASTATIN 20 MG TABLET PO SCH (20:00)
[2021-02-02] MEDS: INSULIN GLARGINE 100 UNITS/ML 10 ML VIAL SQ SCH (20:14)
[2021-02-02] MEDS: NICOTINE 21 MG/ 24 HR PATCH TD SCH (22:45)
[2021-02-02 23:14] VITALS: BP 144/61
[2021-02-02] MEDS: HYDROMORPHONE 2 MG VIAL (2MG/ML) IVP PRN (23:40)
[2021-02-03] MEDS: ACETAMINOPHEN 325 MG TAB PO PRN ×2 (02:28→21:59)
[2021-02-03 04:45] VITALS: BP 168/79
[2021-02-03] MEDS: HYDROMORPHONE 2 MG VIAL (2MG/ML) IVP PRN (05:41)
[2021-02-03] MEDS: INSULIN HUMULIN R 100 UNIT/ML 3ML SQ SCH ×4 (06:37→21:00)
[2021-02-03 08:34] VITALS: BP 133/80
[2021-02-03] MEDS: FUROSEMIDE 40 MG TABLET PO SCH ×2 (09:35→17:05)
[2021-02-03] MEDS: APIXABAN 5 MG TABLET PO SCH ×2 (09:35→21:57)
[2021-02-03] MEDS: SULFAMETHOX-TMP DS 800/160 TAB PO SCH ×2 (09:38→21:57)
[2021-02-03] MEDS: METOPROLOL SUCCINATE 50 MG TAB.SR.24H PO SCH ×2 (09:38→21:57)
[2021-02-03] MEDS: LISINOPRIL 5 MG TABLET PO SCH (09:38)
[2021-02-03 11:41] VITALS: BP 162/76
[2021-02-03 16:00] VITALS: BP 137/85
[2021-02-03] MEDS ORDERED: HYDRALAZINE 20MG/ML VIAL IV PRN (16:45)
[2021-02-03 19:38] VITALS: BP 140/74
[2021-02-03] MEDS: FAMOTIDINE 20MG VIAL IV SCH (21:56)
[2021-02-03] MEDS: TRAZODONE HCL 50 MG TAB PO PRN (21:57)
[2021-02-03] MEDS: ATORVASTATIN 20 MG TABLET PO SCH (21:58)
[2021-02-03] MEDS: NICOTINE 21 MG/ 24 HR PATCH TD SCH (21:59)
[2021-02-03] MEDS: INSULIN GLARGINE 100 UNITS/ML 10 ML VIAL SQ SCH (22:01)
[2021-02-03] MEDS: ASPIRIN 81MG CHEW TAB PO SCH (22:07)
[2021-02-03 23:32] VITALS: BP 129/52
[2021-02-04 03:25] VITALS: BP 132/60
[2021-02-04 05:03] LABS: BASOPHILS % (AUTO) 0.6 % (0.0-5.0); EOSINOPHILS % (AUTO) 0.1 % (0.0-8.0); HEMATOCRIT 28.8 % (42-54); MEAN CORPUSCULAR HEMOGLOBIN 27.7 pg (27.0-33.0); MEAN CORPUSCULAR HGB CONC 30.2 g/dL (32.0-36.0); MEAN CORPUSCULAR VOLUME 91.7 fL (79-99); MONOCYTES % (AUTO) 8.1 % (3.0-13.0); NEUTROPHILS % (AUTO) 73.8 % (40.0-77.0); PLATELET COUNT (AUTO) 383 K/uL (130-400); RED BLOOD CELL COUNT(AUTO) 3.14 MIL/uL (4.50-6.20); RED CELL DISTRIBUTION WIDTH 16.4 % (11.0-15.5); WHITE BLOOD COUNT (AUTO) 9.7 K/uL (4.8-10.8)
[2021-02-04 05:11] LABS: POTASSIUM 4.1 mmol/L (3.5-5.1)
[2021-02-04] MEDS: INSULIN HUMULIN R 100 UNIT/ML 3ML SQ SCH ×2 (06:33→11:15)
[2021-02-04] MEDS: DEXTROSE 50%-WATER 50 ML DISP.SYRIN IV PRN (06:36)
[2021-02-04 08:00] VITALS: BP 145/62
[2021-02-04] MEDS: SULFAMETHOX-TMP DS 800/160 TAB PO SCH (09:44)
[2021-02-04] MEDS: FUROSEMIDE 40 MG TABLET PO SCH (09:45)
[2021-02-04] MEDS: METOPROLOL SUCCINATE 50 MG TAB.SR.24H PO SCH (09:45)
[2021-02-04] MEDS: APIXABAN 5 MG TABLET PO SCH (09:45)
[2021-02-04] MEDS: LISINOPRIL 5 MG TABLET PO SCH (09:45)
[2021-02-04] MEDS: ACETAMINOPHEN 325 MG TAB PO PRN (11:20)
[2021-02-04 12:00] VITALS: BP 127/49
[2021-03-09] MEDS ORDERED: SILV20CR11 TP (02:24)
[2021-03-09] MEDS ORDERED: INSU100I21 SQ (02:24)
[2021-03-09] MEDS ORDERED: VITS42.53 TP (02:24)
[2021-03-09] MEDS ORDERED: GABA-529 PO (02:24)
[2021-03-09] MEDS ORDERED: ACET1TAB25 PO (02:24)
[2021-03-09] MEDS ORDERED: NEOM28.36 TP (02:24)
[2021-03-09] MEDS ORDERED: FAMO20TA8 PO (02:24)
[2021-03-09] MEDS ORDERED: TRAZ-185 PO (02:24)
[2021-03-09] MEDS ORDERED: LISI40TA9 PO (02:24)
[2021-03-09] MEDS ORDERED: LIDO5CRE7 TP (02:24)
[2021-03-09] MEDS ORDERED: NICO-776 TD (02:24)
[2021-03-09] MEDS ORDERED: FURO20TA4 PO (02:24)
[2021-03-09] MEDS ORDERED: ACET-2247 PO (02:24)
[2021-03-09] MEDS ORDERED: ACET325T51 PO (02:24)
[2021-04-18] MEDS ORDERED: LISI20TA24 PO (03:21)
[2021-04-18] MEDS ORDERED: SIMV10TA97 PO (03:22)
[2021-04-18] MEDS ORDERED: LACT10SO9 PO (03:24)
[2021-04-18] MEDS ORDERED: ACET-2123 PO (03:26)
== END 2021-02-04 17:52 | DRG 474 ==
LOC: EDH 15:08 → EDHIP 20:01 → 4BH 01-20 00:51 → EDHIP 01-20 04:29 → 4BH 01-20 09:00 → 4DH 02-03 17:08
PROVIDERS: ADMIT Internal Medicine; ATTEND Internal Medicine
PROC: 04CK0ZZ Extirpation of Matter from Right Femoral Artery, Open Approach (ICD-10-PCS; 2021-01-27)
PROC: 30233N1 Transfusion of Nonautologous Red Blood Cells into Peripheral Vein, Percutaneous Approach (ICD-10-PCS; 2021-01-27)
PROC: 041K0KQ Bypass Right Femoral Artery to Lower Extremity Artery with Nonautologous Tissue Substitute, Open Approach (ICD-10-PCS; principal; 2021-01-27 14:38)
PROC: 0Y6M0Z0 Detachment at Right Foot, Complete, Open Approach (ICD-10-PCS; 2021-01-29)
PROC: 0QBL0ZZ Excision of Right Tarsal, Open Approach (ICD-10-PCS; 2021-01-29)
DX: T87.43 Infection of amputation stump, right lower extremity (principal); A41.9 Sepsis, unspecified organism; J96.01 Acute respiratory failure with hypoxia; R65.20 Severe sepsis without septic shock; I50.23 Acute on chronic systolic (congestive) heart failure; G93.41 Metabolic encephalopathy; N39.0 Urinary tract infection, site not specified; I48.21 Permanent atrial fibrillation; L03.115 Cellulitis of right lower limb; E11.52 Type 2 diabetes mellitus with diabetic peripheral angiopathy with gangrene; K56.609 Unspecified intestinal obstruction, unspecified as to partial versus complete obstruction; D68.59 Other primary thrombophilia; M86.171 Other acute osteomyelitis, right ankle and foot; R31.0 Gross hematuria; I87.2 Venous insufficiency (chronic) (peripheral); Z20.822 Contact with and (suspected) exposure to COVID-19; D69.6 Thrombocytopenia, unspecified; E11.621 Type 2 diabetes mellitus with foot ulcer; E11.69 Type 2 diabetes mellitus with other specified complication; E66.9 Obesity, unspecified; E78.00 Pure hypercholesterolemia, unspecified; E78.5 Hyperlipidemia, unspecified; G89.29 Other chronic pain; I08.0 Rheumatic disorders of both mitral and aortic valves; I11.0 Hypertensive heart disease with heart failure; I25.10 Atherosclerotic heart disease of native coronary artery without angina pectoris; I70.201 Unspecified atherosclerosis of native arteries of extremities, right leg; L97.519 Non-pressure chronic ulcer of other part of right foot with unspecified severity; E87.6 Hypokalemia; Y83.5 Amputation of limb(s) as the cause of abnormal reaction of the patient, or of later complication, without mention of misadventure at the time of the procedure; F17.200 Nicotine dependence, unspecified, uncomplicated; E11.42 Type 2 diabetes mellitus with diabetic polyneuropathy; T87.81 Dehiscence of amputation stump; R53.81 Other malaise; Z79.01 Long term (current) use of anticoagulants; Z79.02 Long term (current) use of antithrombotics/antiplatelets; Z79.82 Long term (current) use of aspirin; Z79.84 Long term (current) use of oral hypoglycemic drugs; Z79.899 Other long term (current) drug therapy; Z80.9 Family history of malignant neoplasm, unspecified; Z82.49 Family history of ischemic heart disease and other diseases of the circulatory system; Z83.3 Family history of diabetes mellitus; Z86.14 Personal history of Methicillin resistant Staphylococcus aureus infection; Z89.431 Acquired absence of right foot; Z68.27 Body mass index [BMI] 27.0-27.9, adult; J98.4 Other disorders of lung
CPT/HCPCS: 36415; 36600; 71045; 73630; 73718; 75635; 76770; 80048; 80053; 80061; 81001; 82435; 82550; 82803; 82947; 82948; 83036; 83605; 83735; 83880; 84132; 84145; 84295; 84443; 84484; 85014; 85018; 85025; 85027; 85347; 85378; 85610; 85730; 86850; 86900; 86901; 86923; 87040; 87070; 87076; 87077; 87088; 87186; 87205; 87426; 88304; 88311; 93005; 93970; 97039; 99291; C1757; C1763; G0378; J0690; J1170; J1644; J1650; J1815; J1940; J2001; J2250; J2370; J2405; J2543; J2704; J3010; J3370; J3430; J3475; J3480; J3490; J7030; J7040; J7042; J7050; J7070; P9016; Q9967; U0003

== ENCOUNTER → 2022-03-27 | Outpatient (CLI) | payer OTHER ==
[~2022-03-27] MED LIST changes: +ACET-2079 PO; +ACET-2123 PO; -AMLO-257 PO; -AMPI500C12 PO; -ASPI-556 PO; -ATOR-2 PO; -DOCU100T9 PO; +FAMO20TA8 PO; -FERR-82 PO; +FURO20TA4 PO; -FURO40TA5 PO; +GABA-529 PO; +INSU100I21 SQ; +LACT10SO9 PO; -LEVO750T46 PO; +LISI20TA24 PO; -LISI40TA9 PO; -METF-444 PO; +NEOM28.36 TP; +NICO-776 TD; +SIMV10TA97 PO; +TRAZ-185 PO
== END | disposition home or self-care (01) ==
LOC: SHCH 10:50
PROVIDERS: ATTEND Internal Medicine Cardiovascular Disease
DX: I08.0 Rheumatic disorders of both mitral and aortic valves (principal); I48.20 Chronic atrial fibrillation, unspecified; I73.9 Peripheral vascular disease, unspecified; I48.21 Permanent atrial fibrillation; E11.51 Type 2 diabetes mellitus with diabetic peripheral angiopathy without gangrene; R55 Syncope and collapse; I10 Essential (primary) hypertension
CPT/HCPCS: 93306

== ENCOUNTER → 2022-09-21 | Outpatient (CLI) | payer OTHER ==
[~2022-09-21] MED LIST changes: +IOHEXOL 350 MG/ML 100ML INFUS..BTL IV ONE
== END | disposition home or self-care (01) ==
LOC: RAH 09:27
PROVIDERS: ATTEND Internal Medicine Cardiovascular Disease
DX: I65.23 Occlusion and stenosis of bilateral carotid arteries (principal); I25.10 Atherosclerotic heart disease of native coronary artery without angina pectoris
CPT/HCPCS: 70498; Q9967

== ENCOUNTER → 2022-10-15 | Outpatient (CLI) | payer OTHER ==
[~2022-10-15] MED LIST changes: +0.9%NACL 1000ML 1,000 ML IV SCH; +ACET-66 PO; +ACET650S14 RC; +APIX5TAB PO; +ATOR10 PO; +BISA10SU11 RC; +GABA300C PO; +GUAI100L37 PO; -IOHEXOL 350 MG/ML 100ML INFUS..BTL IV ONE; +LOPE2 PO; +METF-445 PO; +METO50TA18 PO; +OMEG-148 PO; +POTA10CA45 PO; +PROM25TA7 PO
[2022-10-15 11:53] LABS: BASOPHILS % (AUTO) 0.3 % (0.0-5.0); EOSINOPHILS % (AUTO) 0.9 % (0.0-8.0); HEMATOCRIT 39.7 % (42-54); LYMPHOCYTES % (AUTO) 17.5 % (21.0-51.0); MEAN CORPUSCULAR HGB CONC 31.5 g/dL (32.0-36.0); MEAN CORPUSCULAR VOLUME 92.1 fL (79-99); MONOCYTES % (AUTO) 5.7 % (3.0-13.0); NEUTROPHILS % (AUTO) 75.1 % (40.0-77.0); PLATELET COUNT (AUTO) 207 K/uL (130-400); RED BLOOD CELL COUNT(AUTO) 4.31 MIL/uL (4.50-6.20); RED CELL DISTRIBUTION WIDTH 13.1 % (11.0-15.5); WHITE BLOOD COUNT (AUTO) 9.8 K/uL (4.8-10.8)
[2022-10-15 12:02] LABS: POTASSIUM 4.7 mmol/L (3.5-5.1)
== END | disposition home or self-care (01) ==
LOC: EDSTATUS 10:00 → DAH 10:00
PROVIDERS: ATTEND Internal Medicine Cardiovascular Disease
DX: Z01.810 Encounter for preprocedural cardiovascular examination (principal); I65.23 Occlusion and stenosis of bilateral carotid arteries
CPT/HCPCS: 36415; 71045; 80048; 85025; 93005